=== PATIENT | female | born 1970 | race Caucasian/White ===

== ENCOUNTER 2024-06-27 11:00 | Outpatient (POV) | payer MEDICAID, SELFPAY ==
--- NOTE | 2024-06-27 11:29 | A.OFFVIS_ITS ---
HPI Data of Consult Patient: new to practice Consult date: 06/27/24 Requesting Physician: Laxmi Hooks APRN Primary Care Provider: Tasia Chen APRN Consult Narrative History of present illness: Ms. MAHER is a 54 year old female who presents today as a transfer from our [place] location. Patient has previously been seen by our office in the past and had a intrathecal pain pump implanted on June 01.Patient does haveintrathecal morphine 1 mg/mL with a daily dose of 0.1651 mg/day. Patient denies any specific side effects from this medication however does state today that she is felt like she has had a little bit more swelling over the last 2 weeks in her lower legs. Patient denies any new medications or changes that would correlate to this. Patient has been a client of [facility] there in [place] but does state that she is planning on just seeing our office for future. Patient states that the [place] location is much easier and closer to where she lives. Patient does rate her pain today a 10 out of 10. Patient states the pain is all along her low back and bilateral hips. She is stating it is almost like a nerve damage sensation that has burning that goes into her upper thigh more prominent along the left side than the right. She does state that any type of movement or certain positions really aggravate those symptoms. She states the pain is interfering with her ability perform activities of daily living such as cooking and cleaning. Patient is interested in any help we may be able to provide.patient is also prescribed pregabalin 150 mg 3 times a day from [facility]. Her Jr has been reviewed and is appropriate. CC: Laxmi Hooks APRN [facility] Disclaimer: The information contained in this section may have been updated after the patient was seen, as this information can be updated by other users. Social History Smoking Status: Unknown if ever smoked alcohol intake: never current occupational status: other Travel in the last 8 weeks: None Review of Systems Review of Systems Review of systems:: pertinent systems reviewed and negative unless documented below Review of systems (narrative): Review of Systems: General: No recent weight changes, no fever, no sleep disturbances Respiratory: No cough, no shortness of air, no recurring pulmonary infections Cardiovascular/peripheral vascular: No chest pain, no palpitations, no edema, no shortness of breath Gastrointestinal: No new onset incontinence, normal bowel movements reported Genitourinary: No new onset incontinence Musculoskeletal: Chronic low back pain, bilateral hip pain Psychiatric: [Normal mood/affect] Neurological: [Denies weakness in extremities], [denies balance issues] Meds Home Medications and Allergies Home Medications ?Medication ?Instructions ?Recorded ?Confirmed ?Type baclofen 5 mg tablet 5 mg PO TID #42 tabs 06/27/24 Rx meloxicam 15 mg tablet 15 mg PO DAILY #14 tabs 06/27/24 Rx New Prescriptions to Start Prescriptions: baclofen Laxmi Hooks meloxicam Laxmi Hooks Objective Narrative: Physical Exam: General: Alert and oriented x3, no acute distress, pleasant and cooperative Lungs: Respirations even and unlabored, symmetrical chest expansion Eyes: PERRL Musculoskeletal: Flexion and extension of lumbar [spine] somewhat guarded s econdary to pain, [antalgic gait noted] point tenderness along bilateral SIs with positive bilateral Alejandrina's, Pennie's, Gaenslen's, compression and distraction exam Neurological: Speech clear, no gross sensory deficit Assessment and Plan *Assessment and plan (1) Degenerative disc disease: Status: Acute Category: Medical (2) Chronic back pain: Status: Acute Category: Medical Code(s): M54.9 - Dorsalgia, unspecified; G89.29 - Other chronic pain (3) Bilateral sacroiliitis: Status: Acute Category: Medical Code(s): M46.1 - Sacroiliitis, not elsewhere classified Plan Patient is experiencing worsening pain along the low back and bilateral hips. They did have limited range of motion of the lumbar spine along with point tenderness along bilateral SI joints and a positive bilateral Alejandrina's, Pennie's, Gaenslen's, compression and distraction exam. I did discuss with the patient that I do believe they would benefit from bilateral SI injections. Risk and be nefits were discussed with the patient and they would like to proceed forward with this option. Patient has tried and failed conservative therapy including continued at home stretching exercise for longer than 12 weeks. Patient has had chronic low back and hip pain for longer than 3 months and has had it progressively worsened over the last several weeks. Patient will be scheduled for bilateral SI injections under fluoroscopy. We did do a pump adjustment today of 10%. She tolerated this well with no complications and was discharged neurologically intact. I did discuss with the patient due to her having some swelling in her legs to monitor and see if it did get any worse in order to see if there is correlation between her intrathecal pump medication. We will follow-up with her when she comes for her injections on how the swelling has progressed and if it does seem to be an issue with the pump we will plan on changing her to intrathecal Dilaudid in future. She does state that she is currently on hydrochlorothiazide and has been. We did review over that the swelling may be unrelated to the pump but we will continue to monitor. Patient agrees with this plan of care. I will also order the patient a compounded cream. Patient denies any heart or kidney issues. I will send in a 2-week dose of baclofen 5 mg 3 times daily and meloxicam 15 mg daily. Patient has been instructed to contact the clinic with any concerns before the next appointment. Dr. Winkler has reviewed this note and agrees with this plan of care. This note was dictated using voice recognition software and make contain errors or omissions. All injections are used with Lidocaine or Bupivacaine and Depo Medrol. We will see the patient back in the clinic at the next intrathecal refill. Patient has been instructed to contact the clinic with any concerns before the next appointment. Dr. Winkler has reviewed this note and agrees with this plan of care. This note was dictated using voice recognition software and make contain errors or omissions. -- It Is medically necessary for this patient to continue to have their intrathecal pump refilled at regular intervals. This patient had an intrathecal pain pump implanted after meeting criteria of chronic intractable pain for greater than 3 months and failing conservative treatments. Patient has committed and been compliant to the treatment plan and all planned follow up care. Since implantation of the intrathecal pain pump, the patient has had decreased pain and been more functional. Oral medications have been reduced including intake of oral opioids. Patient continues to do well with intrathecal therapy with decrease in pain symptoms and increase in functional status. Stopping intrathecal medications can lead to life threatening withdrawal, seizures, cardiac arrest, severe pain, and possible . Pumps that are not refilled at regular intervals can be damages and cause and need for replacement. We continually titrate dose and concentration to optimize pain relief and function. We are limited in concentration for certain drugs to safely deliver medications through the pump and stay within the recommendations from the Polyanalgesic Consensus Committee Guidelines. Depending on dose and concentration these pumps may need to be refilled sooner than 3 months as we titrate. A UDS is needed to verify patient's compliance with our office pain contract. This is ordered based off specific treatments related to chronic pain with the potential to abuse certain medications.
[2024-06-27 12:38] VITALS: BP 126/65; PULSE 80; RESP 18; O2SAT 95; BMI 31.8
== END 2024-06-27 23:59 | disposition home or self-care (01) ==
PROVIDERS: PCP Nurse Practitioner Family; Visit Provider Nurse Practitioner Family
DX: M54.9 Dorsalgia, unspecified (principal); G89.29 Other chronic pain; M46.1 Sacroiliitis, not elsewhere classified; Z73.89 Other problems related to life management difficulty
CPT/HCPCS: 62368; 99202; G0463

== ENCOUNTER 2024-07-09 13:03 | Outpatient (POV) | payer MEDICAID, SELFPAY ==
--- NOTE | 2024-07-09 13:52 | EXP.PAIN.SOA ---
[facility] Disclaimer: The information contained in this section may have been updated after the patient was seen, as this information can be updated by other users. Medical History (Updated 07/09/24 @ 13:54 by Laxmi Hooks APRN) GERD (gastroesophageal reflux disease) Hypothyroidism Depression HTN (hypertension) DDD (degenerative disc disease), lumbar DDD (degenerative disc disease), cervical Lumbar spondylosis Surgical History (Updated 06/27/24 @ 12:54 by Nina Young RN) H/O neck surgery H/O hernia repair Family History (Updated 06/27/24 @ 12:47 by Nina Young RN) Other Unknown family medical history Social History (Updated 06/27/24 @ 12:58 by Nina Young RN) Smoking Status: Unknown if ever smoked alcohol intake: never current occupational status: unemployed Travel in the last 8 weeks: None PM Subjective & Objective Subjective Subjective:: Patient is a pleasant 54-year-old female who presents today for follow-up. Today she rates her pain a 10 out of 10. At her last visit we did do a increase of her pump that does have morphine 1 mg/mL. She states she is not really sure whether or not if that is the back of the pump medication or not but she has been having more swelling into the right extremity down to her foot with increased pain. Patient was also ordered a compounded cream along with baclofen 5 mg 3 times daily and meloxicam 15 mg daily. Patient states that she did go to the hospital there in [place] this morning and they did do an ultrasound and ruled out any DVT. Patient does describe it as a burning tingling sensation. Her Jr has been reviewed and is appropriate. Review of Systems: General: No recent weight changes, no fever, no sleep disturbances Respiratory: No cough, no shortness of air, no recurring pulmonary infections Cardiovascular/peripheral vascular: No chest pain, no palpitations, no edema, no shortness of breath Gastrointestinal: No new onset incontinence, normal bowel movements reported Genitourinary: No new onset incontinence Musculoskeletal: Right leg swelling, right foot pain Psychiatric: [Normal mood/affect] Neurological: [Denies weakness in extremities], [denies balance issues] Pain at rest (0-10 scale): 10 Objective Objective:: Physical Exam: General: Alert and oriented x3, no acute distress, pleasant and cooperative Lungs: Respirations even and unlabored, symmetrical chest expansion Eyes: PERRL Musculoskeletal: Flexion and extension of right foot somewhat guarded secondary to pain, [antalgic gait noted] Neurological: Speech clear, no gross sensory deficit Skin: Right foot does have significant swelling and redness, hot to touch and 1+ pitting edema noted on her upper leg Has patient had previous pain injection?: No Conservative treatment options previously tried: Home exercise plan Length of treatment: Longer than 12 weeks Meds Home Medications and Allergies Home Medications ?Medication ?Instructions ?Recorded ?Confirmed ?Type albuterol sulfate 90 mcg/actuation 1 inh inhalation DIRECTED 06/27/24 06/27/24 History aerosol inhaler Breathing Problems atenolol 25 mg tablet 25 mg PO DIRECTED BLOOD PRESSURE 06/27/24 06/27/24 History baclofen 5 mg tablet 5 mg PO TID #42 tabs 06/27/24 Rx fluoxetine 20 mg capsule 20 mg PO DAILY MOOD 06/27/24 06/27/24 History hydrochlorothiazide 12.5 mg capsule 12.5 mg PO DAILY Fluid 06/27/24 06/27/24 History levothyroxine 25 mcg tablet 25 mcg PO DAILY THYROID 06/27/24 06/27/24 History meloxicam 15 mg tablet 15 mg PO DAILY #14 tabs 06/27/24 Rx mirtazapine 30 mg tablet 30 mg PO DAILY 06/27/24 06/27/24 History omeprazole 20 mg capsule,delayed 20 mg PO DAILY GERD 06/27/24 06/27/24 History release pregabalin 150 mg capsule 150 mg PO Q8H Pain 06/27/24 06/27/24 History New Prescriptions to Start Prescriptions: Allergies Allergy/AdvReac Type Severity Reaction Status Date / Time No Known Allergies Allergy Verified 06/27/24 13:15 Assessment and Plan *Assessment and plan (1) Right foot pain: Status: Acute Category: Medical Code(s): M79.671 - Pain in right foot (2) Swelling of right foot: Status: Acute Category: Medical Code(s): M79.89 - Other specified soft tissue disorders Plan Patient is experiencing significant swelling in the right lower extremity with erythema, pitting edema hot to touch right foot in comparison to the left. I did discuss with the patient that I do believe some of her symptoms do have a possible diagnosis of gout, cellulitis or osteomyelitis. Out of precaution we will go ahead and proceed forward with changing her pump medication to Dilaudid 1 mg/mL with a starting dose of 0.1 mg/day. I will also order CBC with differential, CMP and uric acid levels as well as ordering an x-ray of her right foot to rule out possible diagnosis mentioned prior. Patient agrees with this plan of care. We will have the patient back as soon as possible to change out her intrathecal pump medication. I did offer to decrease her intrathecal pump today however the patient declined because her pain overall in her back is much more manageable at the current dosage. We will see the patient back in the clinic at the next intrathecal refill. Patient has been instructed to contact the clinic with any concerns before the next appointment. Dr. Winkler has reviewed this note and agrees with this plan of care. This note was dictated using voice recognition software and make contain errors or omissions. -- It Is medically necessary for this patient to continue to have their intrathecal pump refilled at regular intervals. This patient had an intrathecal pain pump implanted after meeting criteria of chronic intractable pain for greater than 3 months and failing conservative treatments. Patient has committed and been compliant to the treatment plan and all planned follow up care. Since implantation of the intrathecal pain pump, the patient has had decreased pain and been more functional. Oral medications have been reduced including intake of oral opioids. Patient continues to do well with intrathecal therapy with decrease in pain symptoms and increase in functional status. Stopping intrathecal medications can lead to life threatening withdrawal, seizures, cardiac arrest, severe pain, and possible . Pumps that are not refilled at regular intervals can be damages and cause and need for replacement. We continually titrate dose and concentration to optimize pain relief and function. We are limited in concentration for certain drugs to safely deliver medications through the pump and stay within the recommendations from the Polyanalgesic Consensus Committee Guidelines. Depending on dose and concentration these pumps may need to be refilled sooner than 3 months as we titrate. A UDS is needed to verify patient's compliance with our office pain contract. This is ordered based off specific treatments related to chronic pain with the potential to abuse certain medications.
--- NOTE | 2024-07-09 14:01 | XR_ITS ---
FINAL REPORT CLINICAL HISTORY: r/o osteomyelitis, right foot swelling/erythema, 3 WEEKS SWELLING COMPARISON: None FINDINGS: Three views of the right foot show no evidence of acute displaced fracture or dislocation of the visualized bony architecture. There is no periosteal reaction or evidence of bony destruction. The joint spaces appear normal. Mild dorsal soft tissue swelling is noted without gas or radiopaque foreign body. IMPRESSION: No acute findings. Reviewed, Interpreted and Dictated by Marleni Diaz MD Transcribed by Bertha Whiting Authenticated and [facility]
[2024-07-09 14:07] VITALS: BP 110/67; PULSE 85; RESP 14; O2SAT 95; BMI 35.1
[2024-07-09 15:02] LABS: Basophils # 0.1 K/mm3 (0-0.2); Basophils % 0.9 % (0.1-2.0); Eosinophils # 0.2 K/mm3 (0.0-0.4); Eosinophils % 2.7 % (0.1-12.0); Hematocrit 39.4 % (37.0-47.0); Hemoglobin 13.1 g/dL (12.2-16.2); Lymphocytes # 2.1 K/mm3 (0.7-4.5); Lymphocytes % 25.4 % (10-50); Mean Corpuscular HGB Conc 33.2 g/dL (31.8-35.4); Mean Corpuscular Hemoglobin 30.7 pg (27.0-31.2); Mean Corpuscular Volume 92.3 fl (81-99); Mean Platelet Volume 12.6 fl (7.4-10.4); Monocytes # 0.6 K/mm3 (0.1-1.0); Monocytes % 7.4 % (1.7-9.3); Neutrophils # 5.2 K/mm3 (1.8-7.8); Neutrophils % 63.2 % (37.0-80.0); Platelet Count 220 K/mm3 (142-424); Red Blood Count 4.27 M/mm3 (4.20-5.40); Red Cell Distribution Width 12.6 % (11.5-17.5); White Blood Count 8.2 K/mm3 (4.8-10.8)
[2024-07-09 15:22] LABS: Alanine Aminotransferase 27 U/L (12-78); Albumin Level 3.9 g/dl (3.5-5.0); Alkaline Phosphatase 88 U/L (38-126); Anion Gap 6.8 mEq/L (5-15); Aspartate Amino Transferase 37 U/L (14-36); Bilirubin,Total 0.9 mg/dl (0.2-1.3); Blood Urea Nitrogen 8 mg/dl (7-17); Calcium 9.2 mg/dl (8.4-10.2); Carbon Dioxide 30 mmol/L (22.0-30.0); Chloride 106 mmol/L (98-107); Creatinine Clearance Estimated 112 mL/min (50-200); Estimated Glomerular Filt Rate 75 ml/min (>60); GFR (African American) 91 ML/MIN (>60); Glucose 101 mg/dl (74-100); Potassium 3.8 mmoL/L (3.5-5.1); Sodium 139 mmol/L (136-145); Total Protein,Serum 5.9 g/dl (6.3-8.2); Uric Acid 7.1 mg/dl (2.5-6.2)
== END 2024-07-09 23:59 | disposition home or self-care (01) ==
PROVIDERS: PCP Nurse Practitioner Family; Visit Provider Nurse Practitioner Family
DX: M79.671 Pain in right foot (principal); M79.89 Other specified soft tissue disorders
CPT/HCPCS: 36415; 73630; 80053; 84550; 85025; 99212; G0463

== ENCOUNTER 2024-07-20 10:21 | Day surgery (SDC) | payer MEDICAID, SELFPAY ==
--- NOTE | 2024-07-20 10:26 | EXP.PAIN.PRO ---
Procedure Date: 07/20/24 Time: 11:28 Anesthesiologist:: Laxmi Hooks APRN Complications:: None Pre-procedure Diagnosis:: Degenerative disc disease of lumbar spine with lumbar radiculopathy symptoms, sacroiliitis Post-procedure Diagnosis:: Same Indications for Procedure:: Patient is a pleasant 54-year-old female who presents today for intrathecal refill and reprogram. Today she rates her pain a 7 out of 10. Patient does state from her last visit that the day she left out of here she felt really terrible by the time she got home with the flu or flulike symptoms and was in bed all day. Patient does state that she did get her message regarding that her elevated uric acid levels and thinking that her foot was related to gout however she did still question that. She does state that she has a history of gout and does have preventative gout medication. Patient is currently managed with morphine 1 mg/mL with a daily dose of 0.1816 mg/day and is getting her pump changed to Dilaudid 1 mg/mL with a starting dose of 0.1 mg/day. Patient does still want to proceed forward with this plan of care. Patient does also make mention today that she is having a lot more numbness into her upper hands bilaterally. Patient does have a longstanding history of multiple cervical surgeries and chronic pain in this area. Patient states if there are any options we may be able to do to give improvement for some of those symptoms. Patient is prescribed pregabalin from an outside provider and compounded cream from our office. Her Jr has been reviewed and is appropriate. Physical Exam: General: Alert and oriented x3, no acute distress, pleasant and cooperative Lungs: Respirations even and unlabored, symmetrical chest expansion Eyes: PERRL Musculoskeletal: Flexion and extension of lumbar [spine] somewhat guarded secondary to pain, [antalgic gait noted] Neurological: Speech clear, no gross sensory deficit Procedure Details:: Informed consent was obtained and the risk and benefits of the procedure were explained to the patient. The patient had noninvasive monitoring placed including noninvasive blood pressure cuff and pulse oximeter. Patient's pump was interrogated. The area over the pump was cleansed with chlorhexidine as a cleansing solution. In sterile fashion the pump was accessed with a 22-gauge needle. Approximately 9.2 mls of the pump solution was removed and discarded appropriately. The pump was then refilled with 20 mL's of Dilaudid 1 mg/mL. The needle was withdrawn and a bandage was placed over the puncture site. The infusion rate was reprogrammed and restarted at Dilaudid 0.1 mg/day. The patient tolerated well with no complication. Plan and Disposition:: Patient tolerated the procedure well with no complications and was discharged neurologically intact. Patient was counseled that she will have a bridge bolus as the medication of the previous morphine makes its way through the catheter and that during that time she would not be able to use her bridge bolus. Patient was counseled she does have a 46-hour and 39-minute bridge bolus to get to the new dosage. I did discuss with the patient regarding her bilateral upper extremity numbness that it would be more beneficial to try a cervical epidural however that we can make adjustments on her pump to even change it to flex dosing to see if she gets better coverage for her overall neck symptoms. We will follow-up with this at future visits. Patient is scheduled to be here on Tuesday for injections. Patient will return to clinic on or before their next intrathecal refill date. We will see the patient back in the clinic at the next intrathecal refill. Patient has been instructed to contact the clinic with any concerns before the next appointment. Dr. Winkler has reviewed this note and agrees with this plan of care. This note was dictated using voice recognition software and make contain errors or omissions. -- It Is medically necessary for this patient to continue to have their intrathecal pump refilled at regular intervals. This patient had an intrathecal pain pump implanted after meeting criteria of chronic intractable pain for greater than 3 months and failing conservative treatments. Patient has committed and been compliant to the treatment plan and all planned follow up care. Since implantation of the intrathecal pain pump, the patient has had decreased pain and been more functional. Oral medications have been reduced including intake of oral opioids. Patient continues to do well with intrathecal therapy with decrease in pain symptoms and increase in functional status. Stopping intrathecal medications can lead to life threatening withdrawal, seizures, cardiac arrest, severe pain, and possible . Pumps that are not refilled at regular intervals can be damages and cause and need for replacement. We continually titrate dose and concentration to optimize pain relief and function. We are limited in concentration for certain drugs to safely deliver medications through the pump and stay within the recommendations from the Polyanalgesic Consensus Committee Guidelines. Depending on dose and concentration these pumps may need to be refilled sooner than 3 months as we titrate. A UDS is needed to verify patient's compliance with our office pain contract. This is ordered based off specific treatments related to chronic pain with the potential to abuse certain medications.
[2024-07-20 10:34] VITALS: BP 117/94; PULSE 85; RESP 16; TEMP 36.4; O2SAT 97; BMI 34.7
[2024-07-20 11:21] VITALS: BP 126/66; PULSE 80; RESP 18; O2SAT 96
[2024-07-20 11:22] VITALS: BP 126/66; PULSE 81; RESP 18; O2SAT 96
[2024-07-20 11:53] VITALS: BP 103/68; PULSE 80; RESP 16; O2SAT 95
== END 2024-07-20 11:53 | disposition home or self-care (01) ==
PROVIDERS: PCP Nurse Practitioner Family; Visit Provider Nurse Practitioner Family
DX: M51.16 Intervertebral disc disorders with radiculopathy, lumbar region (principal); M46.1 Sacroiliitis, not elsewhere classified
CPT/HCPCS: 62370

== ENCOUNTER 2024-07-24 10:38 | Day surgery (SDC) | payer MEDICAID, SELFPAY ==
[2024-07-24 10:50] VITALS: BP 126/82; PULSE 75; RESP 16; TEMP 36.2; O2SAT 97; BMI 34.7
[2024-07-24 10:55] VITALS: BP 124/80; PULSE 87; RESP 18; O2SAT 92
[2024-07-24] MEDS: BUPIVACAINE 0.25% 10ML INJ 25 MG IJ (10:55)
[2024-07-24] MEDS: LIDOCAINE 1% 5ML PF VIAL 5 ML (10:55)
[2024-07-24] MEDS: methylPREDNISolone ACETATE 80MG/ML VIAL 80 MG (10:55)
[2024-07-24 11:09] VITALS: BP 109/70; PULSE 84; RESP 16; O2SAT 96
--- NOTE | 2024-07-24 11:37 | P.PCN_ITS ---
Procedure Date: 07/24/24 Time: 11:00 Anesthesiologist:: Dmitri Garcia CRNA Complications:: None Pre-procedure Diagnosis:: Bilateral sacroiliitis Post-procedure Diagnosis:: Same Indications for Procedure:: Patient is a pleasant 54-year-old female who comes our clinic for bilateral sacroiliac joint injections cortisone local anesthetic. Patient describes low lumbar back pain off midline bilaterally. Bilateral posterior hip pain. Difficulty transitioning from sitting to standing. She rates her pain 8/10. Procedure Details:: Procedure: Bilateral sacroiliac joint injections under fluoroscopy Informed consent was obtained and the risks and benefits of the procedure were explained to the patient.~ The patient was taken to the procedure room and noninvasive monitors were placed including a noninvasive blood pressure cuff and pulse oximeter.~ The patient was placed prone on the procedure table. Both hips were cleansed using Betadine as a cleansing solution. C-arm fluoroscopy was used to view the right sacroiliac joint.~ The skin and subcutaneous tissues were anesthetized using lidocaine 1.5% and a 25-gauge needle.~ After this, a 22-gauge spinal needle was inserted under fluoroscopic guidance into the inferior aspect of the right sacroiliac joint.~ Omnipaque dye was injected and good spread was seen throughout the joint.~ After this, approximately 5 mL of bupivacaine, 0.25% and Depo-Medrol, 40 mg was incrementally injected into the right sacroiliac joint. We then moved to the left sacroiliac joint.~ The skin and subcutaneous tissues were anesthetized using lidocaine 1.5% and a 25-gauge needle.~ After this, a 22- gauge spinal needle was inserted under fluoroscopic guidance into the inferior aspect of the left sacroiliac joint.~ Omnipaque dye was injected and good spread was seen throughout the joint. After this, approximately 5 mL of bupivacaine, 0.25% and Depo-Medrol, 40 mg was incrementally injected into the left sacroiliac joint.~ The patient tolerated the procedure well with no complications. The patient was observed in the Pain Clinic and then was discharged home neurologically intact. Plan and Disposition:: Patient was discharged without incident.
--- NOTE | 2024-07-24 11:40 | EXP.PAIN.PRO ---
Procedure Date: 07/24/24 Time: 11:15 Anesthesiologist:: Dmitri Garcia CRNA Complications:: None Pre-procedure Diagnosis:: Degenerative disc lumbar spine multilevels for lumbar radiculopathy. Bilateral sacroiliitis. Post-procedure Diagnosis:: Same. Indications for Procedure:: Patient is a 54-year-old female comes our clinic today for intrathecal pain pump interrogation and reprogram. Patient currently being managed with hydromorphone 1 mg/mL at a rate of 0.1 mg/day. Patient intrathecal pain medication was changed 3 days ago from morphine to hydromorphone. I will give her a 10% increase today. Procedure Details:: Details of procedure explained to the patient. Patient's pump was interrogated. Pump rate was increased by 10%. Her new rate is 0.1102 mg/day. Patient tolerated procedure without difficulty there are no complications. Plan and Disposition:: Patient was discharged without incident.
== END 2024-07-24 11:09 | disposition home or self-care (01) ==
PROVIDERS: PCP Nurse Practitioner Family; Visit Provider Nurse Anesthetist, Certified Registered
DX: M46.1 Sacroiliitis, not elsewhere classified (principal); M51.16 Intervertebral disc disorders with radiculopathy, lumbar region
CPT/HCPCS: 27096; 62368; G0260; J1010

== ENCOUNTER 2024-08-06 13:49 | Outpatient (POV) | payer MEDICAID, SELFPAY ==
[2024-08-06 14:43] VITALS: BP 115/68; PULSE 84; RESP 18; O2SAT 95; BMI 35.3
--- NOTE | 2024-08-06 15:37 | EXP.PAIN.PRO ---
Procedure Date: 08/06/24 Time: 15:01 Anesthesiologist:: Laxmi Hooks APRN Complications:: None Pre-procedure Diagnosis:: Degenerative disc disease of lumbar spine, lumbar facet arthropathy, chronic back pain, bilateral sacroiliitis Post-procedure Diagnosis:: Same Indications for Procedure:: Patient is a pleasant 54-year-old female who presents today for intrathecal adjustment and worsening pain. Patient did also have bilateral SI injections on 24 July. She states that she did not notice great relief with these. Patient states she still continues to have worsening pain with certain movements. She does state it is interfering with her ability to perform activities of daily living such as cooking and cleaning. Patient does also state that the change of her pump medication to Dilaudid has not seem to make a huge difference as of right now. Patient was restarted at a starting dose with Dilaudid 1 mg/mL with a daily dose of 0.1 mg/day. She was just recently increased on the to 0.1102 mg/day. She denies any side effects to this medication. Patient is prescribed pregabalin from an outside provider and compounded cream from our office. Her Jr has been reviewed and is appropriate. Physical Exam: General: Alert and oriented x3, no acute distress, pleasant and cooperative Lungs: Respirations even and unlabored, symmetrical chest expansion Eyes: PERRL Musculoskeletal: Flexion and extension of lumbar [spine] somewhat guarded secondary to pain, [antalgic gait noted] positive Kemps test Neurological: Speech clear, no gross sensory deficit Procedure Details:: Informed consent was obtained and the risk and benefits of the procedure were explained to the patient. Patient did have noninvasive monitoring was placed including noninvasive blood pressure cuff and pulse oximeter. Patient's pump was interrogated and was reprogrammed to Dilaudid 0.1266 mg/day. The patient tolerated the procedure well with no complications. Plan and Disposition:: Patient tolerated the procedure well with no complications. Patient is experiencing significant pain in her low back that is worse with bending, twisting or lifting. Patient did have limited range of motion of her lumbar spine with a positive Kemps test during today's visit. I did discuss with the patient that I do believe she would benefit from a lumbar medial branch block. Risk and benefits were discussed with the patient and she would like to proceed forward with this plan of care. Patient has tried and failed conservative therapy including oral medications, heat and ice, topicals, at home stretching exercise for longer than 12 weeks. Patient has been experiencing chronic low back pain for years. Patient was counseled that if she does get significant relief with her first lumbar medial branch block that we will plan on repeating it with the plan to progress forward to a lumbar RFA at a later date. Patient agrees with this plan of care. Patient will be scheduled for her first diagnostic lumbar medial branch block bilaterally L4-L5 and L5-S1 under fluoroscopy. Patient has been instructed to contact the clinic with any concerns before the next appointment. Dr. Winkler has reviewed this note and agrees with this plan of care. This note was dictated using voice recognition software and make contain errors or omissions. All injections are used with Lidocaine, Bupivacaine and Depo Medrol. Occasionally urine drug screen is needed to verify patient's compliance with our office pain contract. This is ordered based off specific treatments related to chronic pain with the potential to abuse certain medications.
== END 2024-08-06 23:59 | disposition home or self-care (01) ==
PROVIDERS: PCP Nurse Practitioner Family; Visit Provider Nurse Practitioner Family
DX: M51.362 Other intervertebral disc degeneration, lumbar region with discogenic back pain and lower extremity pain (principal); M47.816 Spondylosis without myelopathy or radiculopathy, lumbar region; M46.1 Sacroiliitis, not elsewhere classified; M54.9 Dorsalgia, unspecified; G89.29 Other chronic pain
CPT/HCPCS: 62368; 99212; 99213; G0463

== ENCOUNTER 2024-08-17 13:29 | Outpatient (POV) | payer MEDICAID, SELFPAY ==
--- OUTSIDE RECORDS SUMMARY | 2024-08-17 13:32 | XMS_ITS | Data Portability ---
Author Organization [place] - [facility] Address [address] [place] [id number] Assessment No assessment recorded. Plan of Treatment Reminders Order Date Submit Date Provider Last Modified By Organization Details Last Modified Time Details Appointments None record ed. Lab None record ed. Referral None record ed. Procedures None record ed. Surgeries None record ed. Imaging None record ed. Medication Orders None record ed. Patient TargetsNo targets recorded. Patient InstructionsNo instructions recorded. Reason for Referral None Reported. Medical Equipment None Reported. Allergies No known drug allergies Medications Name Sig Start Date Stop Date Status Note LastModified by Organization Details LastModified Time cyclobenzapr ine 10 mg tablet ONE (1) (ONE) TABLET THREE (3) TIMES DAILY, NEEDED FOR MUSCLE SPASMS active Not Available Not Available No t Available amoxicillin 500 mg capsule TAKE 1 CAPSULE BY MOUTH TWICE DAILY active Not Available Not Available No t Available nystatin 100,000 unit/mL oral suspension TAKE FIVE (5) MILLILITER BY MOUTH FOUR TIMES DAILY, SWISH, SWALLOW active Not Available Not Available No t Available gabapentin 600 mg tablet TAKE 1 TABLET BY MOUTH THREE (3) TIMES DAILY active Not Available Not Available No t Available doxycycline hyclate 100 mg capsule TAKE 1 CAPSULE BY MOUTH TWICE DAILY active Not Available Not Available No t Available prednisone 20 mg tablet TAKE 1 TABLET BY MOUTH TWICE DAILY active Not Available Not Available No t Available atenolol 25 mg tablet TAKE 1 TABLET BY MOUTH EVERY DAY active Not Available Not Available No t Available levothyroxin e 25 mcg tablet TAKE 1 TABLET BY MOUTH EVERY DAY active Not Available Not Available No t Available gabapentin 800 mg tablet TAKE ONE (1) TABLET BY MOUTH THREE (3) TIMES DAILY active Not Available Not Available Not Available omeprazole 20 mg capsule,mary yed release TAKE ONE (1) CAPSULE DAILY NEEDS APPT active Not Available Not Available No t Available diclofenac sodium 75 mg tablet,delay ed release TAKE 1 TABLET BY MOUTH TWICE DAILY NEEDED active Not Available Not Available No t Available lisinopril 5 mg tablet TAKE 1 TABLET BY MOUTH EVERY DAY active Not Available Not Available No t Available methylpredni solone 4 mg tablets in a dose pack TAKE DIRECTED ON PACKAGE active Not Available Not Available No t Available fluoxetine 20 mg capsule TAKE 1 TABLET BY MOUTH EVERY DAY active Not Available Not Available No t Available medroxyproge sterone 150 mg/mL intramuscula r suspension INJECT ONE (1) ML INTRAMUSCUL BLADE EVERY 12 WEEKS active Not Available Not Available No t Available doxycycline hyclate 100 mg tablet TAKE 1 TABLET BY MOUTH TWICE DAILY active Not Available Not Available No t Available Ventolin HFA 90 mcg/actuatio n aerosol inhaler INHALE ONE (1) PUFF FOUR (4) TIMES DAILY active Not Available Not Available Not Available pregabalin 150 mg capsule TAKE ONE (1) CAPSULE BY MOUTH THREE (3) TIMES DAILY active Not Available Not Available Not Available hydrochlorot hiazide 12.5 mg tablet TAKE 1 TABLET BY MOUTH EVERY DAY active Not Available Not Available No t Available Vitals None Recorded Social History None recorded. Functional Status None recorded. Mental Status None recorded. Family History Nothing Reported. Medical History No medical history recorded. Gynecological HistoryNo gynecological history recorded. Obstetrics History GPAL:G 0 P 0 0 0 0 Past Encounters Encounter ID Performer Location Encounter Start Date Encounter Closed Date Diagnosis/Indication Diagnosis SNOMED-CT Code Diagnosis ICD10 Code Diagnosis Note [id number] TOO SMITH DO [facility] [address] [facility] [place] [id number] 05/18/2023 12:45:07 05/24/2023 08:20:50 Follow-up orthopedic assessment [id number] Z47.89 Health Concerns Section Related Observation LastModified by Organization Detai ls LastModified Time None Recorded Concern Status LastModified by Organization Details LastModified Time None Recorded Advance Directives Directive None Recorded Payers None recorded. OBGyn Episode No OBEpisode recorded.
[2024-08-17 13:50] VITALS: BP 102/69; PULSE 83; RESP 16; O2SAT 100; BMI 34.7
--- NOTE | 2024-08-17 15:15 | EXP.PAIN.PRO ---
Procedure Date: 08/17/24 Time: 14:32 Anesthesiologist:: Laxmi Hooks APRN Complications:: None Pre-procedure Diagnosis:: Degenerative disc disease of lumbar spine with lumbar facet arthropathy Post-procedure Diagnosis:: Same Indications for Procedure:: Patient is a pleasant 54-year-old female who presents today for intrathecal adjustment and reprogram. Today she rates her pain a 10 out of 10. She denies any new trauma or injury. She does state that she is still having pain all across to her back and is scheduled for her injections at our office on the of this month for the lumbar medial branch block bilaterally. Patient does state overall her pump is still working well however feels like it does definitely still need additional adjustment. Patient denied any side effects from the recent increase. Patient is currently managed with Dilaudid 1 mg/mL with a daily dose of 0.1266 mg/day. Patient does make mention today that even before she had her pump she was having trouble initiating urination and feels like it is just continued. Patient states this has been going on for some time. She states that she oftentimes has to sit for longer periods of time and leaning forward to get started with urination. Patient denies seeing a urologist in the past. Her Jr has been reviewed and is appropriate. Physical Exam: General: Alert and oriented x3, no acute distress, pleasant and cooperative Lungs: Respirations even and unlabored, symmetrical chest expansion Eyes: PERRL Musculoskeletal: Flexion and extension of lumbar [spine] somewhat guarded secondary to pain, [antalgic gait noted] Neurological: Speech clear, no gross sensory deficit Procedure Details:: Informed consent was obtained and the risk and benefits of the procedure were explained to the patient. Patient did have noninvasive monitoring was placed including noninvasive blood pressure cuff and pulse oximeter. Patient's pump was interrogated and was reprogrammed to Dilaudid 0.1518 mg/day. The patient tolerated the procedure well with no complications. Plan and Disposition:: Patient tolerated the procedure well with no complications and was discharged neurologically intact. Patient will return to clinic next week for possible additional adjustment and reprogram. We will also send her for referral to Dr. Salmeron's office here with urology related to her bladder issues. We will see the patient back in the clinic at the next intrathecal refill. Patient has been instructed to contact the clinic with any concerns before the next appointment. Dr. Winkler has reviewed this note and agrees with this plan of care. This note was dictated using voice recognition software and make contain errors or omissions. -- It Is medically necessary for this patient to continue to have their intrathecal pump refilled at regular intervals. This patient had an intrathecal pain pump implanted after meeting criteria of chronic intractable pain for greater than 3 months and failing conservative treatments. Patient has committed and been compliant to the treatment plan and all planned follow up care. Since implantation of the intrathecal pain pump, the patient has had decreased pain and been more functional. Oral medications have been reduced including intake of oral opioids. Patient continues to do well with intrathecal therapy with decrease in pain symptoms and increase in functional status. Stopping intrathecal medications can lead to life threatening withdrawal, seizures, cardiac arrest, severe pain, and possible . Pumps that are not refilled at regular intervals can be damages and cause and need for replacement. We continually titrate dose and concentration to optimize pain relief and function. We are limited in concentration for certain drugs to safely deliver medications through the pump and stay within the recommendations from the Polyanalges[employer] Consensus Committee Guidelines. Depending on dose and concentration these pumps may need to be refilled sooner than 3 months as we titrate. A UDS is needed to verify patient's compliance with our office pain contract. This is ordered based off specific treatments related to chronic pain with the potential to abuse certain medications.
== END 2024-08-17 23:59 | disposition home or self-care (01) ==
PROVIDERS: PCP Nurse Practitioner Family; Visit Provider Nurse Practitioner Family
DX: M51.369 Other intervertebral disc degeneration, lumbar region without mention of lumbar back pain or lower extremity pain (principal); M47.816 Spondylosis without myelopathy or radiculopathy, lumbar region
CPT/HCPCS: 62368; 99212; G0463

== ENCOUNTER 2024-09-04 14:06 | Day surgery (SDC) | payer MEDICAID, SELFPAY ==
[2024-09-04 14:20] VITALS: BP 110/74; PULSE 86; RESP 16; TEMP 36.7; O2SAT 96; BMI 35.4
[2024-09-04] MEDS: DEXAMETHASONE 10MG/ML 1ML VIAL 10 MG (14:29)
[2024-09-04] MEDS: BUPIVACAINE 0.25% 10ML INJ 25 MG IJ (14:29)
[2024-09-04] MEDS: LIDOCAINE 1% 5ML PF VIAL 5 ML (14:29)
[2024-09-04 14:30] VITALS: BP 146/81; PULSE 84; RESP 18; O2SAT 96
[2024-09-04 14:32] VITALS: BP 146/81; PULSE 84; RESP 18; O2SAT 96
--- NOTE | 2024-09-04 14:36 | EXP.PAIN.PRO ---
Procedure Date: 09/04/24 Time: 14:30 Anesthesiologist:: Dmitri Garcia CRNA Complications:: None Pre-procedure Diagnosis:: Degenerative disc lumbar spine multilevels. Lumbar radiculopathy. Lumbar postlaminectomy syndrome. Lumbar spondylosis. Multilevel lumbar facet arthropathy. Post-procedure Diagnosis:: Same. Indications for Procedure:: Patient is a very pleasant 54-year-old female who comes our clinic today for ROUND ONE of lumbar medial branch blocks/facet injections at the bilateral L4-5, L5-S1 level. Patient describes low lumbar back pain as constant, dull, sharp, stabbing. She reports difficulty with ambulation due to persistent low back pain. Since May 2024 she has been managed with intrathecal pain pump. She reports minimal relief since the pump was installed. I discussed in detail with the patient regarding the possibility of adding bupivacaine to the pump. She will mention this to the provider at her next refill. She rates her pain 8/10. Procedure Details:: Informed consent was obtained and the risk and benefits of the procedure was explained to the patient. Patient was taken to the procedure room where noninvasive monitors were placed, including noninvasive blood pressure cuff as well as pulse oximeter. The area over the lumbar spine was cleansed using chlorhexidine as a cleansing solution. I anesthetized the skin and subcutaneous tissues with 1% Lidocaine. I placed 22-gauge spinal needles into the facet joint/ medial branches of [L3-L4, L4-L5, and L5-S1] bilaterally. Needle placement was confirmed with fluoroscopy. After confirmation of needle placement, each site was injected with 1 mL of 1% lidocaine and 0.25 % Marcaine and 10 mg of Depo-Medrol. A total of 80 mg of depo medrol was used for bilateral medial branch blocks of [L3-L4, L4-L5, and L5-S1] bilaterally. Patient tolerated the procedure without difficulty. There were no complications. Plan and Disposition:: Patient was discharged without incident.
[2024-09-04 14:38] VITALS: BP 134/67; PULSE 88; RESP 16; O2SAT 98
== END 2024-09-04 14:38 | disposition home or self-care (01) ==
PROVIDERS: PCP Nurse Practitioner Family; Visit Provider Nurse Anesthetist, Certified Registered
DX: M47.816 Spondylosis without myelopathy or radiculopathy, lumbar region (principal); M51.369 Other intervertebral disc degeneration, lumbar region without mention of lumbar back pain or lower extremity pain; M96.1 Postlaminectomy syndrome, not elsewhere classified
CPT/HCPCS: 64493; 64494; J1100

== ENCOUNTER 2024-09-17 14:35 | Outpatient (POV) | payer MEDICAID, SELFPAY ==
--- OUTSIDE RECORDS SUMMARY | 2024-09-17 14:38 | XMS_ITS | Data Portability ---
Author Organization [place] - [facility] Address [address] [place] [phone] Assessment No assessment recorded. Plan of Treatment [...] SNOMED-CT Code Diagnosis ICD10 Code Diagnosis Note [id number] TOO SMITH DO [facility] [place] [address] 05/18/2023 12:45:07 05/24/2023 08:20:50 Follow-up orthopedic assessment [id number] Z47.89 Health Concerns Section Related Observation LastModified by Organization Detai ls LastModified Time None Recorded Concern Status LastModified by Organization Details LastModified Time None Recorded Advance Directives Directive None Recorded Payers Insurance Date Sequence Insurance Name Policy Number Policy Rodriguez Covered Member ID Rodriguez Member ID Guarantor Name 05/18/2023 1 [facility] Nasrin May [id number] Nasrin May 06/15/2023 1 [facility] (MEDICAID REPLACEMENT - O) Nasrin May [id number] Nasrin May 05/18/2023 1 [facility] Nasrin May [id number] Nasrin May 10/01/2021 1 [facility] [id number] Nasrin May [id number] Nasrin May 05/18/2023 1 [employer] [id number] Nasrin May [id number] Nasrin May OBGyn Episode No OBEpisode recorded.
--- NOTE | 2024-09-17 15:20 | A.OFFVIS_ITS ---
[facility] Disclaimer: The information contained in this section may have been updated after the patient was seen, as this information can be updated by other users. Medical History (Updated 09/17/24 @ 15:22 by Laxmi Hooks APRN) GERD (gastroesophageal reflux disease) Hypothyroidism Depression HTN (hypertension) DDD (degenerative disc disease), lumbar DDD (degenerative disc disease), cervical Lumbar spondylosis Surgical History H/O neck surgery H/O hernia repair Family History Other Unknown family medical history Social History Smoking Status: Unknown if ever smoked alcohol intake: never current occupational status: other Travel in the last 8 weeks?: None PM Subjective & Objective Subjective Subjective:: Patient is a pleasant 54-year-old female who presents today for follow-up of her first diagnostic lumbar medial branch block bilaterally L4-L5 and L5-S1 on 09/04/2024. Today she rates her pain a 7 out of 10. Patient does deny any new injuries or falls. She does however state that she had 100% relief following these injections for 11 days where her pain was a 0 out of 10 and before it returned. Patient does state today it is back to her baseline and that she is having increased pain all across her low back. Patient denies any radiating symptoms into her legs. Patient does state that this has been the best injection she has had and definitely wants to proceed forward with the next option. Patient is currently managed with Dilaudid 1 mg/mL with a daily dose of 0.1518 mg/day. She denies any side effects. Patient is still having swelling into her right lower leg and states that she is kassidy follow-up with primary care regarding this. Her Jr has been reviewed and is appropriate. Review of Systems: General: No recent weight changes, no fever, no sleep disturbances Respiratory: No cough, no shortness of air, no recurring pulmonary infections Cardiovascular/peripheral vascular: No chest pain, no palpitations, no edema, no shortness of breath Gastrointestinal: No new onset incontinence, normal bowel movements reported Genitourinary: No new onset incontinence Musculoskeletal: Low back pain Psychiatric: [Normal mood/affect] Neurological: [Denies weakness in extremities], [denies balance issues] Pain at rest (0-10 scale): 7 Objective Objective:: Physical Exam: General: Alert and oriented x3, no acute distress, pleasant and cooperative Lungs: Respirations even and unlabored, symmetrical chest expansion Eyes: PERRL Musculoskeletal: Flexion and extension of lumbar [spine] somewhat guarded secondary to pain, [antalgic gait noted] positive Kemps test Neurological: Speech clear, no gross sensory deficit Has patient had previous pain injection?: Yes Percent improvement in pain since last injection: 100% for 11 days Conservative treatment options previously tried: Home exercise plan Length of treatment: Longer than 12 weeks Meds Home Medications and Allergies Home Medications ?Medication ?Instructions ?Recorded ?Confirmed ?Type albuterol sulfate 90 mcg/actuation 1 inh inhalation DIRECTED 06/27/24 09/04/24 History aerosol inhaler Breathing Problems atenolol 25 mg tablet 25 mg PO DIRECTED BLOOD PRESSURE 06/27/24 09/04/24 History baclofen 5 mg tablet 5 mg PO TID #42 tabs 06/27/24 09/04/24 Rx fluoxetine 20 mg capsule 20 mg PO DAILY MOOD 06/27/24 09/04/24 History hydrochlorothiazide 12.5 mg capsule 12.5 mg PO DAILY Fluid 06/27/24 09/04/24 History levothyroxine 25 mcg tablet 25 mcg PO DAILY THYROID 06/27/24 09/04/24 History mirtazapine 30 mg tablet 30 mg PO DAILY 06/27/24 09/04/24 History omeprazole 20 mg capsule,delayed 20 mg PO DAILY GERD 06/27/24 09/04/24 History release pregabalin 150 mg capsule 150 mg PO Q8H Pain 06/27/24 09/04/24 History meloxicam 15 mg tablet See Rx Instructions .Route 08/02/24 09/04/24 Rx .COMPLEX #30 tabs New Prescriptions to Start Prescriptions: Allergies Allergy/AdvReac Type Severity Reaction Status Date / Time No Known Allergies Allergy Verified 06/27/24 13:15 Assessment and Plan *Assessment and plan (1) Degenerative disc disease: Status: Acute Category: Medical (2) Lumbar facet arthropathy: Status: Acute Category: Medical Code(s): M47.816 - Spondylosis without myelopathy or radiculopathy, lumbar region Plan Patient is experiencing significant pain in her low back that is worse with bending, twisting or lifting. Patient did have limited range of motion of her lumbar spine with a positive Kemps test during today's visit. I did discuss with the patient that I do believe she would benefit from her second lumbar medial branch block. Patient did have 100% relief with her first lumbar medial branch block and did get 11 days of full improvement with 0 out of 10 pain. Patient is now experiencing worsening pain that is interfering with her ability perform activities of daily living such as cooking and cleaning. Risk and benefits of the repeat injection were discussed with the patient and she would like to proceed forward with this plan of care. Patient has tried and failed conservative therapy including oral medications, heat and ice, topicals, at home stretching exercise for longer than 12 weeks. Patient has been experiencing chronic low back pain for years. Patient was counseled that if she does get significant relief with her second lumbar medial branch block we will plan on proceeding forward with the with the plan to progress forward to a lumbar RFA at a later date. Patient agrees with this plan of care. Patient will be scheduled for her second diagnostic lumbar medial branch block bilaterally L4-L5 and L5-S1 under fluoroscopy. Patient has been instructed to contact the clinic with any concerns before the next appointment. Dr. Winkler has reviewed this note and agrees with this plan of care. This note was dictated using voice recognition software and make contain errors or omissions. All injections are used with Lidocaine, Bupivacaine and dexamethasone. Occasionally urine drug screen is needed to verify patient's compliance with our office pain contract. This is ordered based off specific treatments related to chronic pain with the potential to abuse certain medications.
[2024-09-17 16:11] VITALS: BP 105/69; PULSE 88; RESP 14; O2SAT 98; BMI 35.4
== END 2024-09-17 23:59 | disposition home or self-care (01) ==
LOC: SC.PAIN 14:37
PROVIDERS: PCP Nurse Practitioner Family; Visit Provider Nurse Practitioner Family
DX: M47.816 Spondylosis without myelopathy or radiculopathy, lumbar region (principal); Z73.89 Other problems related to life management difficulty
CPT/HCPCS: 99212; G0463

== ENCOUNTER 2024-10-16 13:14 | Day surgery (SDC) | payer MEDICAID, SELFPAY ==
[2024-10-16 13:25] VITALS: BP 105/66; PULSE 82; RESP 16; O2SAT 99; BMI 37.5
[2024-10-16] MEDS: BUPIVACAINE 0.25% 10ML INJ 25 MG IJ (13:34)
[2024-10-16] MEDS: LIDOCAINE 1% 5ML PF VIAL 5 ML (13:34)
[2024-10-16] MEDS: DEXAMETHASONE 10MG/ML 1ML VIAL 10 MG (13:34)
[2024-10-16 13:35] VITALS: BP 105/66; PULSE 82; RESP 18; O2SAT 99
[2024-10-16 13:36] VITALS: BP 105/66; PULSE 82; RESP 18; O2SAT 99
--- NOTE | 2024-10-16 13:44 | P.PCN_ITS ---
Procedure Date: 10/16/24 Time: 13:30 Anesthesiologist:: Dmitri Garcia CRNA Complications:: None Pre-procedure Diagnosis:: Degenerative disc lumbar spine multilevels. Lumbar radiculopathy. Lumbar spondylosis. Multilevel lumbar facet arthropathy. Post-procedure Diagnosis:: Same. Indications for Procedure:: Patient is very pleasant 54-year-old female who comes our clinic today for ROUND TWO lumbar medial branch block bilateral L4-5, L5-S1 level. Patient describes low lumbar back pain as constant, dull, aching. She reports having difficulty with lumbar flexion, extension, left and right rotation. She rates her pain 7/10. We also managed the patient with intrathecal Dilaudid 1 mg/mL with a daily dose of 0.1518 mg/day. Procedure Details:: Informed consent was obtained and the risk and benefits of the procedure was explained to the patient. Patient was taken to the procedure room where noninvasive monitors were placed, including noninvasive blood pressure cuff as well as pulse oximeter. The area over the lumbar spine was cleansed using chlorhexidine as a cleansing solution. I anesthetized the skin and subcutaneous tissues with 1% Lidocaine. I placed 22-gauge spinal needles into the facet joint/ medial branches of L4-L5, and L5-S1] bilaterally. Needle placement was confirmed with fluoroscopy. After confirmation of needle placement, each site was injected with 1 mL of 1% lidocaine and 0.25 % Marcaine and 10 mg of Depo-Me drol. A total of 80 mg of depo medrol was used for bilateral medial branch blocks of L4-L5, and L5-S1] bilaterally. Patient tolerated the procedure without difficulty. There were no complications. Plan and Disposition:: Patient was discharged without incident.
[2024-10-16 13:49] VITALS: BP 120/78; PULSE 84; RESP 16; O2SAT 98
== END 2024-10-16 13:49 | disposition home or self-care (01) ==
PROVIDERS: PCP Nurse Practitioner Family; Visit Provider Nurse Anesthetist, Certified Registered
DX: M47.816 Spondylosis without myelopathy or radiculopathy, lumbar region (principal); M47.817 Spondylosis without myelopathy or radiculopathy, lumbosacral region; K21.9 Gastro-esophageal reflux disease without esophagitis; E03.9 Hypothyroidism, unspecified; F32.A Depression, unspecified; I10 Essential (primary) hypertension; M50.30 Other cervical disc degeneration, unspecified cervical region; Z79.899 Other long term (current) drug therapy
CPT/HCPCS: 64493; 64494; J0665; J1100; J2003

== ENCOUNTER 2024-11-02 10:16 | Day surgery (SDC) | payer MEDICAID, SELFPAY ==
--- NOTE | 2024-11-02 10:23 | EXP.PM.HP ---
History of Present Illness *Admission Date: 11/02/24 *Reason for visit:: Intrathecal refill; DDD *History of present illness: Same [facility] Disclaimer: The information contained in this section may have been updated after the patient was seen, as this information can be updated by other users. Medical History GERD (gastroesophageal reflux disease) Hypothyroidism Depression HTN (hypertension) DDD (degenerative disc disease), lumbar DDD (degenerative disc disease), cervical Lumbar spondylosis Surgical History H/O neck surgery H/O hernia repair Family History Other Unknown family medical history Social History Smoking Status: Unknown if ever smoked alcohol intake: never current occupational status: other Travel in the last 8 weeks?: None Have you lived/traveled outside US in past 30 days?: No Contact w/someone who lives/traveled outside US past 30 days?: No Exposure to someone with infectious disease in past 14 days?: No Do you have a fever (greater than 100.4 F or 38 C)?: No Have you tested positive for COVID-19?: No Exposed to someone with COVID-19 in past 14 days?: No Do you have a sore throat?: No Do you have a cough?: No Do you have any weakness?: No Do you have any diarrhea?: No Are you experiencing any unusual bleeding?: No Do you have any muscle aches/pain?: No Do you have any abdominal pain?: No Are you experiencing loss of taste or smell?: No Other Medical History Have you received the Flu Vaccine for this season: No Have you received the Pneumonia Vaccine: No Review of Systems Review of Systems Review of systems:: pertinent systems reviewed and negative unless documented below Review of systems (narrative): Review of Systems: General: No recent weight changes, no fever, no sleep disturbances Respiratory: No cough, no shortness of air, no recurring pulmonary infections Cardiovascular/peripheral vascular: No chest pain, no palpitations, no edema, no shortness of breath Gastrointestinal: No new onset incontinence, normal bowel movements reported Genitourinary: No new onset incontinence Musculoskeletal: Chronic back pain Psychiatric: [Normal mood/affect] Neurological: [Denies weakness in extremities], [denies balance issues] Meds Home Medications and Allergies Home Medications ?Medication ?Instructions ?Recorded ?Confirmed ?Type albuterol sulfate 90 mcg/actuation 1 inh inhalation DIRECTED 06/27/24 10/16/24 History aerosol inhaler Breathing Problems atenolol 25 mg tablet 25 mg PO DIRECTED BLOOD PRESSURE 06/27/24 10/16/24 History baclofen 5 mg tablet 5 mg PO TID #42 tabs 06/27/24 10/16/24 Rx fluoxetine 20 mg capsule 20 mg PO DAILY MOOD 06/27/24 10/16/24 History hydrochlorothiazide 12.5 mg capsule 12.5 mg PO DAILY Fluid 06/27/24 10/16/24 History levothyroxine 25 mcg tablet 25 mcg PO DAILY THYROID 06/27/24 10/16/24 History mirtazapine 30 mg tablet 30 mg PO DAILY 06/27/24 10/16/24 History omeprazole 20 mg capsule,delayed 20 mg PO DAILY GERD 06/27/24 10/16/24 History release pregabalin 150 mg capsule 150 mg PO Q8H Pain 06/27/24 10/16/24 History meloxicam 15 mg tablet See Rx Instructions .Route 08/02/24 10/16/24 Rx .COMPLEX #30 tabs New Prescriptions to Start Prescriptions: Allergies Allergy/AdvReac Type Severity Reaction Status Date / Time No Known Allergies Allergy Verified 06/27/24 13:15 Exam Constitutional Constitutional: no acute distress *Routine HEENT Exam Head: Present normocephalic and atraumatic Eye: Present PERRL ENT: Present mucous membranes moist *Routine Neck Exam Neck: Present supple *Routine Respiratory Exam Respiratory: Present CTA bilaterally *Routine Cardiovascular Exam Cardiovascular: Present RRR *Routine Abdominal Exam Abdominal: Present soft *Routine Rectal Exam Rectal:: deferred *Routine Genitalia Exam Genitalia:: deferred Routine Back/Spine/Pelvis Exam Back/Spine: Present pain with flexion *Routine Skin Exam Skin: Present intact and warm *Routine Neurological Exam Neurological: Present alert and oriented X3 Routine Psychiatric Exam Psychiatric: Present normal affect and normal thought process Assessment and Plan *Assessment and plan (1) Lumbar facet arthropathy: Status: Acute Category: Medical Code(s): M47.816 - Spondylosis without myelopathy or radiculopathy, lumbar region (2) Degenerative disc disease: Status: Acute Category: Medical (3) Chronic back pain: Status: Acute Category: Medical Code(s): M54.9 - Dorsalgia, unspecified; G89.29 - Other chronic pain Plan Patient has been instructed to contact the clinic with any concerns before the next appointment. Dr. Winkler has reviewed this note and agrees with this plan of care. This note was dictated using voice recognition software and make contain errors or omissions. All injections are used with Lidocaine, Bupivacaine and dexamethasone. Occasionally urine drug screen is needed to verify patient's compliance with our office pain contract. This is ordered based off specific treatments related to chronic pain with the potential to abuse certain medications.
--- NOTE | 2024-11-02 10:27 | EXP.PAIN.PRO ---
Procedure Date: 11/02/24 Time: 10:15 Anesthesiologist:: Laxmi Hooks APRN Complications:: None Pre-procedure Diagnosis:: Degenerative disc disease of lumbar spine, chronic pain syndrome Post-procedure Diagnosis:: Same Indications for Procedure:: Patient is a pleasant 54-year-old female who presents today for intrathecal refill and reprogram. She rates her pain today a 5 out of 10. She still is having trouble with her legs and swelling. Patient did end up having her second lumbar medial branch block on 10/16/2024. Patient states while it was nice and numb it did seem to work well with 80% relief however it did feel like it was short-lived and did not last as long as the first 1. She does state that it really just denies seem to kick back in and that she is not really having any pain across her back. Patient denies any new falls or injuries.Patient is managed with intrathecal Dilaudid 1 mg/mL with a daily dose of 0.1518 mg/day. She denies any side effects. Patient is on pregabalin from an outside provider. Her Jr has been reviewed and is appropriate. Physical Exam: General: Alert and oriented x3, no acute distress, pleasant and cooperative Lungs: Respirations even and unlabored, symmetrical chest expansion Eyes: PERRL Musculoskeletal: Flexion and extension of lumbar [spine] somewhat guarded secondary to pain, [antalgic gait noted] Neurological: Speech clear, no gross sensory deficit Procedure Details:: Informed consent was obtained and the risk and benefits of the procedure were explained to the patient. The patient had noninvasive monitoring placed including noninvasive blood pressure cuff and pulse oximeter. Patient's pump was interrogated. The area over the pump was cleansed with chlorhexidine as a cleansing solution. In sterile fashion the pump was accessed with a 22-gauge needle. Approximately 4.5 mls of the pump solution was removed and discarded appropriately. The pump was then refilled with 20 mL's of Dilaudid 1 mg/mL. The needle was withdrawn and a bandage was placed over the puncture site. The infusion rate was reprogrammed and continued at its current dosage. The patient tolerated well with no complication. Plan and Disposition:: Patient tolerated the procedure well with no complications and was discharged neurologically intact. I did discuss with patient that we will plan on submitting to add bupivacaine 5 mg/mL with a starting dose of 2.5 mg/day at her next pump refill date. Patient agrees with this plan of care. I did also review with the patient due to the fact that she felt like the injection other than while it was not just started to kick in test today that I would like to see her back in 2 weeks to evaluate how long the second lumbar medial branch block provides relief. Patient was counseled we will plan to definitely proceed forward with the lumbar RFA at a later date. Patient agrees with this plan of care. Patient will return to clinic on or before their next intrathecal refill date. We will see the patient back in the clinic at the next intrathecal refill. Patient has been instructed to contact the clinic with any concerns before the next appointment. Dr. Winkler has reviewed this note and agrees with this plan of care. This note was dictated using voice recognition software and make contain errors or omissions. -- It Is medically necessary for this patient to continue to have their intrathecal pump refilled at regular intervals. This patient had an intrathecal pain pump implanted after meeting criteria of chronic intractable pain for greater than 3 months and failing conservative treatments. Patient has committed and been compliant to the treatment plan and all planned follow up care. Since implantation of the intrathecal pain pump, the patient has had decreased pain and been more functional. Oral medications have been reduced including intake of oral opioids. Patient continues to do well with intrathecal therapy with decrease in pain symptoms and increase in functional status. Stopping intrathecal medications can lead to life threatening withdrawal, seizures, cardiac arrest, severe pain, and possible . Pumps that are not refilled at regular intervals can be damages and cause and need for replacement. We continually titrate dose and concentration to optimize pain relief and function. We are limited in concentration for certain drugs to safely deliver medications through the pump and stay within the recommendations from the Polyanalgesic Consensus Committee Guidelines. Depending on dose and concentration these pumps may need to be refilled sooner than 3 months as we titrate. A UDS is needed to verify patient's compliance with our office pain contract. This is ordered based off specific treatments related to chronic pain with the potential to abuse certain medications.
[2024-11-02 10:28] VITALS: BP 113/73; PULSE 77; RESP 18; O2SAT 99; BMI 35.4
[2024-11-02 10:31] VITALS: BP 138/64; PULSE 83; RESP 18; O2SAT 96
[2024-11-02 11:00] VITALS: BP 109/68; PULSE 87; RESP 18; O2SAT 99
== END 2024-11-02 11:00 | disposition home or self-care (01) ==
PROVIDERS: PCP Nurse Practitioner Family; Visit Provider Nurse Practitioner Family
DX: Z45.1 Encounter for adjustment and management of infusion pump (principal); M51.369 Other intervertebral disc degeneration, lumbar region without mention of lumbar back pain or lower extremity pain; G89.4 Chronic pain syndrome; F32.A Depression, unspecified; I10 Essential (primary) hypertension; K21.9 Gastro-esophageal reflux disease without esophagitis; E03.9 Hypothyroidism, unspecified; Z79.890 Hormone replacement therapy; Z79.899 Other long term (current) drug therapy
CPT/HCPCS: 95991

== ENCOUNTER 2024-11-21 15:10 | Outpatient (POV) | payer MEDICAID, SELFPAY ==
--- OUTSIDE RECORDS SUMMARY | 2024-11-21 15:12 | XMS_ITS | Encounter Summary ---
Author Organization [employer] ([place], [place], [place], [place]) Address [address] [place] [address] Care Team Providers Care Upholstery Sewer Name Role Phone [facility], Provider Not In The System Primary Care Provider Unavailable Encounter Details Date Type Department Care Team (Late st Contact Info) Description 12/14/2019 Transcribed Document [facility] Neurology - [facility] [address] [id number] Jah Robbins Jr., MD [address] [place] [address] Social History Tobacco Use Types Packs/Day Years Used Date Smoking Tobacco: Never Assessed Comments Unknown Sex and Gender Information Value Date Recorded Sex Assigned at Female 11/03/2021 8:12 PM CDT Legal Sex Female 8:12 PM CDT Gender Identity Female 11/03/2021 8:12 PM CDT Sexual Orientation Not on file documented as of this encounter Miscellaneous Notes * Cerner Conversion Note - Jah Robbins Jr., MD - 12/14/2019 5:10 PM EDT Patient: NASRIN MAY Age: 49 Years Sex: Female : 1970 *Operation c3-5 posterolateral arthrodesis with lateral mass screws, c3-5 laminectomy *Preoperative Diagnosis instability w/ myelopathy *Postoperative Diagnosis same *Surgeon(s) kirt *Estimated Blood Loss <150ml *Findings see dict *Specimen(s) epidural mass/ligament for permanent Complications none Date of Service Date/Time of Service SN - Proc - Start Time: 12/14/19 14:19:00 (12/14/19 14:36:32) SN - Proc - Start Time: 12/14/19 14:19:00 (12/14/19 14:36:32) SN - Proc - Start Time: 12/14/19 14:19:00 (12/14/19 14:36:32) documented in this encounter Plan of Treatment Not on file documented as of this encounter Visit Diagnoses Not on filedocumented in this encounter Care Teams Upholstery Sewer Relationship Specialty Start Date End Date [facility], Provider Not In The System, [place] [address] PCP - General 09/23/22 documented as of this encounter
--- OUTSIDE RECORDS SUMMARY | 2024-11-21 15:12 | XMS_ITS | Encounter Summary ---
Author Organization [employer] ([place], [place], [place], [place]) Address [address] [place] [address] Care Team Providers Care Trauma Registrar Name Role Phone [facility], Provider Not In The System Primary Care Provider Unavailable Encounter Details Date Type Department Care Team (Late st Contact Info) Description 12/12/2019 Transcribed Document [facility] Family Medicine [address] [place] [address] ProviderFer MD [address] [place] [address] Social History Tobacco Use Types Packs/Day Years Used Date Smoking Tobacco: Never Assessed Comments Unknown Sex and Gender Information Value Date Recorded Sex Assigned at Female 11/03/2021 8:12 PM CDT Legal Sex Female 8:12 PM CDT Gender Identity Female 11/03/2021 8:12 PM CDT Sexual Orientation Not on file documented as of this encounter Miscellaneous Notes * Cerner Conversion Note - Historical ProviderMD - 12/12/2019 2:49 PM CDT Spiritual Care Assessment Entered On: 12/12/2019 15:36 EDT Performed On: 12/12/2019 14:20 EDT by Kb Rosenthal Chaplain-Non Cert General Information Referred by : Other: Pre-surgery Ministry Provided to : Patient Kb Rosenthal Chaplain-Non Cert - 12/12/2019 15:35 EDT Spiritual Assessment Spiritual Assessment Comment/Summary Points : Spiritual care and supportive visit with patient. Spirital Assessment Comment/Summary Report : SPIRITUAL ASSESSMENT COMMENT/SUMMARY No qualifying data available. Kb Rosenthal Chaplain-Non Cert - 12/12/2019 15:35 EDT Interventions Emotional Support : Empathic/Engaged listening, Feelings expressed Spiritual and Mandaen : Spiritual/Mandaen support provided Kb Rosenthal Chaplain-Non Cert - 12/12/2019 15:35 EDT documented in this encounter Plan of Treatment Not on file documented as of this encounter Visit Diagnoses Not on filedocumented in this encounter Care Teams Trauma Registrar Relationship Specialty Start Date End Date [facility], Provider Not In The System, [place] [address] PCP - General 09/23/22 documented as of this encounter
--- OUTSIDE RECORDS SUMMARY | 2024-11-21 15:12 | XMS_ITS | Encounter Summary ---
Author Organization [employer] ([place], [place], [place], [place]) Address [address] [place] [address] Care Team Providers Care Cleaners Name Role Phone [facility], Provider Not In The System Primary Care Provider Unavailable Encounter Details Date Type Department Care Team (Late st Contact Info) Description 12/13/2019 Transcribed Document [facility] Family Medicine [address] [place] [address] ProviderFer MD [address] [place] [address] Social History Tobacco Use Types Packs/Day Years Used Date Smoking Tobacco: Never Assessed Comments Unknown Sex and Gender Information Value Date Recorded Sex Assigned at Female 11/03/2021 8:12 PM CDT Legal Sex Female 8:12 PM CDT Gender Identity Female 11/03/2021 8:12 PM CDT Sexual Orientation Not on file documented as of this encounter Miscellaneous Notes * Cerner Conversion Note - Historical ProviderMD - 12/13/2019 1:30 PM CDT UM Authorization Entered On: 12/13/2019 13:31 EDT Performed On: 12/13/2019 13:30 EDT by MELISSA LIU, Skilled Trades Teacher Primary Insurance Authorization Authorization and Policy Numbers : Insurance 1 Health Plan: [employer] Policy Number: [id number] Authorization Number: Insurance Primary Name : [facility] [id number] Authorization Number-Primary : See Comments Authorized Service Begin Date-Primary : 12/14/2019 EDT Authorization Comments-Primary : pt is scheduled for INPT Lumbar Fusion Posterior 3 Level Cervical Discectomy Fusion Posterior and Cervical Laminectomy Posterior on Tuesday12/14/2019 PA will call and obtain auth on date of serv. Historical Authorization Comments-Primary : No Authorization Comments Found MELISSA LIU, Skilled Trades Teacher - 12/13/2019 13:30 EDT documented in this encounter Plan of Treatment Not on file documented as of this encounter Visit Diagnoses Not on filedocumented in this encounter Care Teams Cleaners Relationship Specialty Start Date End Date [facility], Provider Not In The System, [place] [address] PCP - General 09/23/22 documented as of this encounter
--- OUTSIDE RECORDS SUMMARY | 2024-11-21 15:12 | XMS_ITS | Encounter Summary ---
Author Organization [employer] ([place], [place], [place], [place]) Address [address] [place] [address] Care Team Providers Care Adjuster Leader Name Role Phone [facility], Provider Not In The System Primary Care Provider Unavailable Encounter Details Date Type Department Care Team (Late st Contact Info) Description 12/12/2019 Transcribed Document [facility] [place] [place] Family Medicine [address] [place] [address] ProviderFer MD [address] [place] [address] Social History Tobacco Use Types Packs/Day Years [...] Conversion Note - Historical ProviderMD - 12/12/2019 2:14 PM CDT PAT Adult Entered On: 12/12/2019 14:17 EDT Performed On: 12/12/2019 14:14 EDT by ZAKIYA NIELSEN RN Vital Measurements Temperature Source : Temporal artery scanning Temperature Mode : Fahrenheit Temperature, Fahrenheit : 97.1 Deg F Clinical Temperature, C : 36.2 Deg C Pulse Method : Pulse Oximetry Peripheral Pulse Rate : 69 bpm Blood Pressure Location : Arm, right upper Blood Pressure Source : Non-Invasive BP Device Blood Pressure Position : Sitting Systolic Blood Pressure : 126 mmHg Diastolic Blood Pressure : 70 mmHg Oxygen Saturation : 99 % Oxygen Therapy Mode : Room air ZAKIYA NIELSEN RN - 12/12/2019 14:14 EDT Pain Assessment Pain Assessment : Initial assessment Pain Scale Goal : 4 ZAKIYA NIELSEN RN - 12/12/2019 14:42 EDT Height and Weight, Clinical Dosing Height Source : Measured Height Entry Format : [place] Height, Feet : 0 ft(Converted to: 0 cm, 0 Inch) Height, Inches : 63.25 Inch(Converted to: 5 ft 3 Inch, 160.65 cm) Clinical Height : 160.66 cm Weight Source : Standing scale Weight Entry Format : [place] Clinical Dosing Weight : 67.07 kg Weight, Pounds : 147 lb Weight, Ounces : 9 oz Body Surface Area (BSA) : 1.71 m2 Body Mass Index : 26 kg/m2 (HI) [place] Body Weight : 53 kg ZAKIYA NIELSEN RN - 12/12/2019 14:14 EDT Health Histories Smoking Status : 10 or more cigarettes (1/2 pack or more)/day in last 30 days Smokeless Tobacco Status : Never Desires Tobacco Cessation Medication : No Reason for No Tobacco Cessation Medication : Refuses FDA approved medications ZAKIYA NIELSEN RN - 12/12/2019 14:14 EDT Social History (As Of: 12/12/2019 14:17:52 EDT) Tobacco: Smoking Status Current every day smoker. Five or more cigarettes per day Smoking Frequency Within Last 30 Days. Use in Last 12 Months: Cigarettes. Years of Use: 20. Packs/Tins Daily: 1.5. Used Tobacco, but Quit No. Second Hand Smoke Exposure: Yes. (Last Updated: 04/01/2017 09:33:38 EST by ROMY LEIWS, RN) Alcohol: Alcohol Use History Yes. Days/Week: 4. # Drinks/Day: 3. Total Drinks/Week: 12. (Last Updated: 04/01/2017 09:34:04 EST by ROMY LEWIS, RN) Substance Abuse: Drug Use Hx: No. Use in Last 12 Months: No. (Last Updated: 04/01/2017 09:34:10 EST by ROMY LEWIS, RN) Infectious Disease History Date of COVID-19 Test : 12/12/2019 EDT Has the patient ever been tested for COVID-19? : Yes, Patient stated results Negative Luna Castellano, Nurse Contract Programmer - 12/14/2019 11:17 EDT Date of COVID-19 test known? : Yes Does patient have symptoms of COVID-19? : No COVID19 Screening : No Experiencing Infectious Disease Symptoms : No symptoms Physical contact outside [place] in the last 30 days : No Infectious Disease History : Chicken pox/Shingles Tuberculosis Symptoms : None ZAKIYA NIELSEN RN - 12/12/2019 14:14 EDT COVID19 PreProcedure Screening Has patient been isolated since the test : Yes Exposed to COVID19 symptoms since test? : No Luna Castellano, Nurse Contract Programmer - 12/14/2019 11:17 EDT Is this an Emergent or Add on Procedure? : No ZAKIYA NIELSEN RN - 12/12/2019 14:14 EDT Anesthesia/Transfusion History Family History of Anesthesia Reaction : No prior transfusion(s) Blood Transfusion Acceptable to Patient : Yes Transfusion History : Prior anesthesia without reaction Family History of Anesthesia Reaction : None ZAKIYA NIELSEN RN - 12/12/2019 14:14 EDT Advance Directive Patient has Advance Directive *Q : No, patient refuses Advance Directive information ZAKIYA NIELSEN RN - 12/12/2019 14:42 EDT Spiritual/Cultural Needs Any Spiritual/Cultural Needs or Requests : Yes Spiritual/Cultural Needs Comment : prayer before surgery (12/13 in at 1000) Spiritual/Cultural Needs Comment : prayer before surgery (12/13 in at 1000) ZAKIYA NIELSEN RN - 12/12/2019 14:42 EDT [place] Suicide Severity Rating Scale (C-SSRS) CSSRS Past Month Wish to be : No CSSRS Past Month Suicidal Thoughts : No CSSRS Lifetime Suicide Behavior : No Suicide Severity Rating Score : 0 Suicide Severity Rating : No Additional Care Required at this time ZAKIYA NIELSEN RN - 12/12/2019 14:42 EDT Psychosocial History Do You Have a History of the Following? : Anxiety, Depression, Other: panic attacks Currently in Unsafe Situation : No ZAKIYA NIELSEN RN - 12/12/2019 14:42 EDT Teaching/Learning Assessment Barriers To Learning : None evident Individuals Taught : Patient Readiness to Learn : Cooperative ZAKIYA NIELSEN RN - 12/12/2019 14:42 EDT Education Topics, Periop Preadmission Perioperative Education Grid Arrival Time/Place : Verbalizes understanding CHG Preoperative Bathing/Cloths : Verbalizes understanding Infection Control : Verbalizes understanding IV's : Verbalizes understanding NPO Status/Directions : Verbalizes understanding Pain Management : Verbalizes understanding Preprocedure Preparations : Verbalizes understanding Preprocedure Tests/Labs : Verbalizes understanding Remove Body Piercings : Verbalizes understanding Responsible Adult : Verbalizes understanding Take/Hold Medications Pre-Procedure : Verbalizes understanding Other : Verbalizes understanding (Comment: Bactroban [ZAKIYA NIELSEN RN - 12/12/2019 14:42 EDT] ) General Info Preferred Name : Nasrin Support Person/Patient Baster Hand : Yes Support Person/Pt Rep Name : Jenelle Agustin Support Person/Pt Rep Contact Information : Want Family/Rep/Phys Notified of Admit : No Emergency Contact #1 : Jenelle Agustin Emergency Contact #1 Emergency Contact #1 Relationship : mother Emergency Contact #2 : n Emergency Contact #2 Phone Number : n Emergency Contact #2 Relationship : n Information Obtained From : Patient Primary Language : Malaysian Preferred Communication Mode : Verbal Communication Barrier : None Financial Systems Director Needed : No Objects to Sharing Info w Family : Yes Status : Patient denies ZAKIYA NIELSEN RN - 12/12/2019 14:42 EDT Korey Scale Korey Sensory Perception : Very limited Korey Moisture : Rarely moist Korey Activity : Walks occasionally Korey Mobility : Very limited Korey Nutrition : Adequate Korey Friction and Shear : No apparent problem Korey Score : 17 ZAKIYA NIELSEN RN - 12/12/2019 14:42 EDT Sleep Apnea Risk Assmt Hx of Obstructive Sleep Apnea Diagnosis : No Snore Loudly : No Tired, Fatigued, or Sleepy During Day : Yes Observed Stopping Breathing During Sleep : No Have/Are Being Treated for Hypertension : Yes BMI Greater Than 35 kg/m2 : No Age over 50 Years Old : No Neck Circumference Greater Than 40 cm : No Gender Male : No STOP-BANG Sleep Apnea Risk Level Score : 2 ZAKIYA NIELSEN RN - 12/12/2019 14:14 EDT documented in this encounter Plan of Treatment Not on file documented as of this encounter Visit Diagnoses Not on filedocumented in this encounter Care Teams Adjuster Leader Relationship Specialty Start Date End Date [facility], Provider Not In The System, [place] [address] PCP - General 09/23/22 documented as of this encounter
--- OUTSIDE RECORDS SUMMARY | 2024-11-21 15:12 | XMS_ITS | Encounter Summary ---
Author Organization [employer] ([place], [place], [place], [place]) Address [address] [place] [address] Care Team Providers Care Stock Patch Sawyer Name Role Phone [facility], Provider Not In The System Primary Care Provider Unavailable Encounter Details Date Type Department Care Team (Late st Contact Info) Description 12/14/2019 Transcribed Document [facility] Family Medicine [address] [place] [address] ProviderFer MD [address] [place] [address] Social History Tobacco Use Types Packs/Day Years Used Date Smoking Tobacco: Never Assessed Comments Unknown Sex and Gender Information Value Date Recorded Sex Assigned at Female 11/03/2021 8:12 PM CDT Legal Sex Female 8:12 PM CDT Gender Identity Female 11/03/2021 8:12 PM CDT Sexual Orientation Not on file documented as of this encounter Miscellaneous Notes * Cerner Conversion Note - Fer ProviderMD - 12/14/2019 4:09 PM CDT Pain Assessment Entered On: 12/15/2019 17:23 EDT Performed On: 12/15/2019 10:51 EDT by JONE THAKUR RN Intervention Information: acetaminophen-oxyCODONE Performed by JONE THAKUR RN on 12/15/2019 09:51:00 EDT acetaminophen-oxyCODONE,1Tab Oral,Pain (Severe 7-10) Pain Assessment Pain Assessment : Follow-up assessment Pain Scale Goal : 4 Pain Scale Used : 0-10 Scale JONE THAKUR RN - 12/15/2019 17:23 EDT Pain Scale Intensity : 4 JONE THAKUR RN - 12/15/2019 17:23 EDT Image 4 - Images currently included in the form version of this document have not been included in the text rendition version of the form. documented in this encounter Plan of Treatment Not on file documented as of this encounter Visit Diagnoses Not on filedocumented in this encounter Care Teams Stock Patch Sawyer Relationship Specialty Start Date End Date [facility], Provider Not In The System, [place] [address] PCP - General 09/23/22 documented as of this encounter
--- OUTSIDE RECORDS SUMMARY | 2024-11-21 15:12 | XMS_ITS | Encounter Summary ---
Author Organization [employer] ([place], [place], [place], [place]) Address [address] [place] [address] Care Team Providers Care Chief Building Inspector Name Role Phone [facility], Provider Not In The System Primary Care Provider Unavailable Encounter Details Date Type Department Care Team (Late st Contact Info) Description 12/14/2019 Transcribed Document [facility] [place] [facility] Family Medicine [address] [place] [address] ProviderFer MD [address] [place] [address] Social History Tobacco Use Types Packs/Day Years Used Date Smoking Tobacco: Never Assessed Comments Unknown Sex and Gender Information Value Date Recorded Sex Assigned at Female 11/03/2021 8:12 PM CDT Legal Sex Female 8:12 PM CDT Gender Identity Female 11/03/2021 8:12 PM CDT Sexual Orientation Not on file documented as of this encounter Miscellaneous Notes * Cerner Conversion Note - Historical ProviderMD - 12/14/2019 2:19 PM CDT [facility] Main OR IntraOp Summary Primary Physician: ALEX THAKUR MD-JOVITA Finalized Date/Time: 12/18/19 09:29:39 Pt. Name: NASRIN MAY /Sex: 1970 Female Med Rec #: [id number] Physician: ALEX THAKUR MD-JOVITA Financial #: [id number] Pt. Type: I Room/Bed: 638/1 Admit/Disch: 08/07/20 05:54:00 - 12/17/19 14:37:00 Institution: [facility] IntraOp Case Attendance Entry 1 Entry 2 Entry 3 Case Attendee ALEX THAKUR MD-SNU Devon Maloney, DELMY ATKINS NA Role Performed Surgeon/Proceduralist, Industrial Machine Operator, First PATIENT SUPPORT SPECIALIST/Nurse Fishing Tackle Repairer First Time In 12/14/19 13:36:00 12/14/19 13:36:00 12/14/19 13:36:00 Time Out 12/14/19 16:10:00 12/14/19 14:51:00 12/14/19 14:21:00 Procedure Lumbar Fusion Posterior Lumbar Fusion Posterior Lumbar Fusion Posterior 3 Level, Cervical 3 Level, Cervical 3 Level, Cervical Laminectomy Posterior, Laminectomy Posterior, Laminectomy Posterior, Cervical Discectomy Cervical Discectomy Cervical Discectomy Fusion Posterior Fusion Posterior Fusion Posterior Other Attendee Superficial Wound Closed By: Last Modified By: Luis Fernando Oshea RN Harover, Michael, RN Byrd, Charlie D, RN 12/14/19 16:10:49 12/14/19 14:58:57 12/14/19 14:23:30 Entry 4 Entry 5 Entry 6 Case Attendee JAMIE ZAPIEN CRNA GULLETTE, ERIN M. WILSON, MATTHEW L, MD-ANS Role Performed PATIENT SUPPORT SPECIALIST/Nurse Fishing Tackle Repairer Scrub, First Anesthesiologist of Record Time In 12/14/19 14:21:00 12/14/19 13:36:00 12/14/19 13:36:00 Time Out 12/14/19 15:32:00 12/14/19 15:12:00 12/14/19 16:10:00 Procedure Lumbar Fusion Posterior Lumbar Fusion Posterior Lumbar Fusion Posterior 3 Level, Cervical 3 Level, Cervical 3 Level, Cervical Laminectomy Posterior, Laminectomy Posterior, Laminectomy Posterior, Cervical Discectomy Cervical Discectomy Cervical Discectomy Fusion Posterior Fusion Posterior Fusion Posterior Other Attendee Superficial Wound Closed By: Last Modified By: Luis Fernando Oshea RN Harover, Michael, RN Harover, Michael, RN 12/14/19 15:42:24 12/14/19 15:39:58 12/14/19 16:10:49 Entry 7 Entry 8 Entry 9 Case Attendee OTHER, ATTENDEE #1 YEYO MEDINA MEGHAN, PA Role Performed Vendor Flotation Tender Physician evaluation assistant Time In 12/14/19 13:36:00 12/14/19 13:36:00 12/14/19 13:36:00 Time Out 12/14/19 16:10:00 12/14/19 16:10:00 12/14/19 16:10:00 Procedure Lumbar Fusion Posterior Lumbar Fusion Posterior Lumbar Fusion Posterior 3 Level, Cervical 3 Level, Cervical 3 Level, Cervical Laminectomy Posterior, Laminectomy Posterior, Laminectomy Posterior, Cervical Discectomy Cervical Discectomy Cervical Discectomy Fusion Posterior Fusion Posterior Fusion Posterior Other Attendee AMY PRESSLEY Superficial Wound Closed By: Last Modified By: Devon Maloney RN Harover, Michael, RN Harover, Michael, RN 12/14/19 14:23:30 12/14/19 16:10:49 12/14/19 16:10:49 Entry 10 Entry 11 Entry 12 Case Attendee Luis Fernando Oshea RN Nichols, Tanya, LISA SHETH APRN Role Performed Industrial Machine Operator, First Scrub, First PATIENT SUPPORT SPECIALIST/Nurse Fishing Tackle Repairer Time In 12/14/19 14:50:00 12/14/19 15:08:00 12/14/19 15:30:00 Time Out 12/14/19 16:10:00 12/14/19 16:10:00 12/14/19 16:10:00 Procedure Lumbar Fusion Posterior Lumbar Fusion Posterior Lumbar Fusion Posterior 3 Level, Cervical 3 Level, Cervical 3 Level, Cervical Laminectomy Posterior, Laminectomy Posterior, Laminectomy Posterior, Cervical Discectomy Cervical Discectomy Cervical Discectomy Fusion Posterior Fusion Posterior Fusion Posterior Other Attendee relief Superficial Wound Closed By: Last Modified By: Luis Fernando Oshea RN Harover, Michael, RN Harover, Michael, RN 12/14/19 16:10:49 12/14/19 15:16:08 12/14/19 16:10:49 [facility] IntraOp Case Attendance Audit 12/14/19 16:10:49 Flight Engineer Instructor: [id number] Modifier: [id number] <+> Time Out 1 <*> Procedure Lumbar Fusion Posterior 3 Level, Cervical Laminectomy Posterior, Cervical Discectomy Fusion Posterior 2 <*> Procedure Lumbar Fusion Posterior 3 Level, Cervical Laminectomy Posterior, Cervical Discectomy Fusion Posterior 3 <*> Procedure Lumbar Fusion Posterior 3 Level, Cervical Laminectomy Posterior, Cervical Discectomy Fusion Posterior 4 <*> Procedure Lumbar Fusion Posterior 3 Level, Cervical Laminectomy Posterior, Cervical Discectomy Fusion Posterior 5 <*> Procedure Lumbar Fusion Posterior 3 Level, Cervical Laminectomy Posterior, Cervical Discectomy Fusion Posterior 6 <+> Time Out 6 <*> Procedure Lumbar Fusion Posterior 3 Level, Cervical Laminectomy Posterior, Cervical Discectomy Fusion Posterior 7 <+> Time Out 7 <*> Procedure Lumbar Fusion Posterior 3 Level, Cervical Laminectomy Posterior, Cervical Discectomy Fusion Posterior 8 <+> Time Out 8 <*> Procedure Lumbar Fusion Posterior 3 Level, Cervical Laminectomy Posterior, Cervical Discectomy Fusion Posterior 9 <+> Time Out 9 <*> Procedure Lumbar Fusion Posterior 3 Level, Cervical Laminectomy Posterior, Cervical Discectomy Fusion Posterior 10 <+> Time Out 10 <*> Procedure Lumbar Fusion Posterior 3 Level, Cervical Laminectomy Posterior, Cervical Discectomy Fusion Posterior 11 <+> Time Out 11 <*> Procedure Lumbar Fusion Posterior 3 Level, Cervical Laminectomy Posterior, Cervical Discectomy Fusion Posterior 12 <+> Time Out 12 <*> Procedure Lumbar Fusion Posterior 3 Level, Cervical Laminectomy Posterior, Cervical Discectomy Fusion Posterior 12/14/19 15:42:24 Flight Engineer Instructor: [id number] Modifier: [id number] <+> 3 Procedure <+> 4 Time Out <+> 4 Procedure <+> 5 Procedure <+> 6 Procedure <+> 7 Procedure <+> 8 Procedure <+> 9 Procedure <+> 12 Case Attendee <+> 12 Role Performed <+> 12 Time In <+> 12 Procedure 12/14/19 15:39:58 Flight Engineer Instructor: [id number] Modifier: [id number] <+> 5 Time Out 12/14/19 15:16:08 Flight Engineer Instructor: [id number] Modifier: [id number] <+> 11 Case Attendee <+> 11 Role Performed <+> 11 Time In <+> 11 Procedure <+> 11 Other Attendee 12/14/19 14:58:57 Flight Engineer Instructor: [email or web address] Modifier: [id number] <+> Time Out 2 <*> Procedure Lumbar Fusion Posterior 3 Level, Cervical Laminectomy Posterior, Cervical Discectomy Fusion Posterior <+> 10 Case Attendee <+> 10 Role Performed <+> 10 Time In <+> 10 Procedure 12/14/19 14:36:52 Flight Engineer Instructor: [email or web address] Modifier: [email or web address] 1 <*> Procedure Lumbar Fusion Posterior 3 Level, Cervical Laminectomy Posterior, Cervical Discectomy Fusion Posterior 2 <+> Role Performed 2 <*> Procedure Lumbar Fusion Posterior 3 Level, Cervical Laminectomy Posterior, Cervical Discectomy Fusion Posterior <+> 9 Time In 12/14/19 14:24:23 Flight Engineer Instructor: [email or web address] Modifier: [email or web address] 1 <*> Procedure Lumbar Fusion Posterior 3 Level, Cervical Laminectomy Posterior, Cervical Discectomy Fusion Posterior 2 <+> Time In 2 <*> Procedure Lumbar Fusion Posterior 3 Level, Cervical Laminectomy Posterior, Cervical Discectomy Fusion Posterior <+> 3 Time In <+> 5 Time In <+> 6 Time In <+> 7 Time In <+> 8 Time In <+> 9 Case Attendee <+> 9 Role Performed 12/14/19 14:23:30 Flight Engineer Instructor: [email or web address] Modifier: [email or web address] <+> 1 Procedure <+> 2 Case Attendee <+> 2 Procedure <+> 3 Case Attendee <+> 3 Role Performed <+> 3 Time Out <+> 4 Case Attendee <+> 4 Role Performed <+> 4 Time In <+> 5 Case Attendee <+> 5 Role Performed <+> 6 Case Attendee <+> 6 Role Performed <+> 7 Case Attendee <+> 7 Role Performed <+> 7 Other Attendee <+> 8 Case Attendee <+> 8 Role Performed [facility] IntraOp Case Times Entry 1 Patient In Room Time 12/14/19 13:36:00 Out Room Time 12/14/19 16:10:00 Anesthesia Start Time 12/14/19 13:36:00 Stop Time 12/14/19 16:10:00 Surgery / Procedure Times Start Time 12/14/19 14:19:00 Stop Time 12/14/19 16:01:00 Last Modified By: Luis Fernando Oshea RN 12/14/19 16:10:47 [facility] IntraOp Case Times Audit 12/14/19 16:10:47 Flight Engineer Instructor: [email or web address] Modifier: [id number] <+> 1 Out Room Time <+> 1 Stop Time <+> 1 Stop Time 12/14/19 14:19:43 Flight Engineer Instructor: [email or web address] Modifier: [email or web address] <+> 1 Start Time [facility] IntraOp Cautery Entry 1 Entry 2 ESU Identification Cautery Type Monopolar ESU BiPolar ESU Cautery Type Comments ID Number [id number] ID Type Hospital Number Hospital Number Cautery Settings Cut Setting 40 8 Coag Setting 40 40 Blend Setting Bipolar Setting Argon Setting Argon Escamilla ESU Grounding Pad Ground Pad Type Adult Grounding Pad Type Comment Grounding Pad Site Right thigh Grounding Pad Site Comment Grounding Pad Devon Maloney RN Applied By Grounding Pad Site Warm, dry and intact Skin Condition Before Cautery Site Skin Condition Before Comment Grounding Pad Site Unchanged Skin Condition After Cautery Site Skin Condition After Comment Last Modified By: Devon Maloney RN Byrd, Charlie D, RN 12/14/19 14:28:03 12/14/19 14:28:03 [facility] IntraOp Communication Entry 1 Communication To Family/Significant other Comment START Communication By Devon Maloney RN Date and Time 12/14/19 14:20:00 Last Modified By: Devon Maloney RN 12/14/19 14:21:00 [facility] IntraOp Communication Audit 12/14/19 14:36:59 Flight Engineer Instructor: [email or web address] Modifier: [email or web address] <+> 1 Communication By [facility] IntraOp Counts Verification Entry 1 Procedure Lumbar Fusion Posterior 3 Level, Cervical Laminectomy Posterior, Cervical Discectomy Fusion Posterior Count Info Count Type Sponge, Sharps, Miscellaneous Counts Verification Baseline/pre-procedure Sequence Count Results Not Applicable Counts Performed By Count Performed By ROSMERY YAP (Scrub) Count Performed By Devon Maloney RN (RN) Last Modified By: Devon Maloney RN 12/14/19 14:23:59 [facility] IntraOp Counts Final Entry 1 Procedure Lumbar Fusion Posterior 3 Level, Cervical Laminectomy Posterior, Cervical Discectomy Fusion Posterior Final Count Info Count Type Sponge, Sharps, Miscellaneous Counts Verification Skin Closure/end of Sequence procedure Count Results Correct, surgeon notified Counts Performed By Count Performed By Ayla Valentin ST (Scrub) Count Performed By Luis Fernando Oshea RN (RN) Last Modified By: Luis Fernando Oshea RN 12/14/19 15:40:13 [facility] IntraOp Cultures and Spec Summary Entry 1 Cultrures and Specimens Specimen Ordered: Yes Test(s) Routine/Path-Lab Requested/Final Disposition Last Modified By: Luis Fernando Oshea RN 12/14/19 15:16:13 [facility] IntraOp Departure from OR Entry 1 Integumentary Assessment Integumentary WDL Assessment WDL Transfer/Handoff Transfer to PACU Phase I Handoff Method Bedside/Face to face, Phone call Post-op Transport Stretcher/Gurney Via Patient Transport DREW LINN PA, Accompanied by JAMIE ZAPIEN CRNA Last Modified By: Devon Maloney RN 12/14/19 14:37:41 [facility] IntraOp Drains and Tubes Entry 1 Device Type Other Size 15 Fr x 49 long Drain/Tube Activity Inserted Drain/Tube Suction Bulb Drain/Tube Drainage None Device Location op site Tube Dressing Dry, Intact Condition Last Modified By: Luis Fernando Oshea RN 12/14/19 15:17:38 General Comments: inserted silicone round drain with bulb suction [facility] IntraOp Dressing and Packing Entry 1 Type Dressing Location NECK Wound Dressing Item Occlusive dressing, Skin adhesive Applied By DREW LINN PA Last Modified By: Devon Maloney RN 12/14/19 14:37:28 [facility] IntraOp Fire Risk Assessment Entry 1 Fire Info Surgical Site or 1- Yes Incision Above the Xyphoid Open O2 Source 0- No (Mask or Cannula) Available Ignition 1- Yes (ESU, Laser, Light Source) Fire Risk 2 Assessment Score Fire Score Fire Risk Yes Assessment Complete Fire Risk Devon Maloney, treating engineer Verified By Fire Risk 12/14/19 14:24:00 Assessment Verified Date/Time Fire Risk Standard Fire Yes Safety Precautions Followed Last Modified By: Devon aMloney RN 12/14/19 14:24:30 [facility] IntraOp General Case Lens Grinder 1 Case Information OR OR 10 [facility] Case Level 1 Room Verified Yes Wound Class I - Clean Specialty SN Neurosurgery Anesthesia Type General ASA Class 2 Diagnosis Preop Diagnosis CERVICAL SPOINDYLOSIS WITH MYELOPATHY Postop Same As Preop No Postop Diagnosis SEE DRS POST OP NOTES Last Modified By: Devon Maloney RN 12/14/19 14:26:30 [facility] IntraOp General Case Data Audit 12/14/19 14:37:08 Flight Engineer Instructor: [email or web address] Modifier: [email or web address] 1 <*> Preop Diagnosis CERVICAL SPOINDYLOSIS WITH MYELOPATHY 12/14/19 14:26:30 Flight Engineer Instructor: [email or web address] Modifier: [email or web address] <+> 1 ASA Class <+> 1 Postop Same As Preop <+> 1 Preop Diagnosis <+> 1 Postop Diagnosis [facility] IntraOp Implant Log Entry 1 Entry 2 Entry 3 Type Tissue Implant Implant (Synthetic) Implant (Synthetic) (Biologic) Implant Log Implant Type Tissue Implant Type Bone Implant BONE VIVIGEN FORMABLE SCR F/A [id number] SCR POLYAXAIL Identification [facility]-[id number] [facility]-[id number] Description Implant Quantity 1 1 1 Implant Site op site op site op site Implant [id number] Identification Model Number Implant Identification Serial Number Implant Identification Lot Number Implant Lifenet:Lifenet J&J:Depuy:Depuy Spine J&J:Depuy:Depuy Spine Identification Transplant Srv Business Technology Architect Name: Implant [id number] Identification Catalog Number Implant Size medium Implant Has an Yes Expiration Date Implant Expiration 11/12/20 Date Wasted Radioactive Material Time Implanted Tissue Implant Continue for Tissue Implant Documentation Tissue Identification Number Graft Prep Per Yes Business Technology Architect Instructions: Tissue Preparation Thawed Method: Reconstitution Solution: Reconstitution Solution Lot Number Reconstitution Solution Expiration Date: Thawing Solution normal saline Thawing Solution [id number] Lot Number Thawing Solution 12/24/19 Expiration Date Preparation Materials, Other Preparation Materials, Other Lot Number Preparation Materials, Other Expiration Date ROSMERY Byrd Prepared/Processed By Business Technology Architect Yes Paperwork Completed Implant Type Comment Last Modified By: Luis Fernando Oshea RN Harover, Michael, RN Harover, Michael, RN 12/14/19 15:07:18 12/14/19 15:36:48 12/14/19 15:36:48 Entry 4 Type Implant (Synthetic) Implant Log Implant Type Tissue Implant Type Implant [id number] Identification Description Implant Quantity 1 Implant Site op site Implant Identification Model Number Implant Identification Serial Number Implant Identification Lot Number Implant Identification Business Technology Architect Name: Implant Identification Catalog Number Implant Size Implant Has an Expiration Date Implant Expiration Date Wasted Radioactive Material Time Implanted Tissue Implant Continue for Tissue Implant Documentation Tissue Identification Number Graft Prep Per Business Technology Architect Instructions: Tissue Preparation Method: Reconstitution Solution: Reconstitution Solution Lot Number Reconstitution Solution Expiration Date: Thawing Solution Thawing Solution Lot Number Thawing Solution Expiration Date Preparation Materials, Other Preparation Materials, Other Lot Number Preparation Materials, Other Expiration Date Tissue Prepared/Processed By Business Technology Architect Paperwork Completed Implant Type Comment Last Modified By: Luis Fernando Oshea RN 12/14/19 15:36:48 [facility] IntraOp Implant Log Audit 12/14/19 15:36:48 Flight Engineer Instructor: [id number] Modifier: [id number] <+> 2 Implant Identification Description <+> 2 Implant Identification Business Technology Architect Name: <+> 2 Implant Site <+> 2 Implant Quantity <+> 2 Implant Identification Catalog Number <+> 2 Type <+> 3 Implant Identification Description <+> 3 Implant Identification Business Technology Architect Name: <+> 3 Implant Site <+> 3 Implant Quantity <+> 3 Implant Identification Catalog Number <+> 3 Type <+> 4 Implant Identification Description <+> 4 Implant Site <+> 4 Implant Quantity <+> 4 Type [facility] IntraOp Intraoperative Assessment Entry 1 Handoff Method Bedside/Face to face, Online nursing summary Valid History / Yes Physical in Chart Preoperative Yes Checklist Reviewed/Evaluated Allergies Reviewed Yes Patient is Latex No Sensitive Isolation Not applicable Precautions Noted Level of WDL Consciousness (WDL = Alert, Oriented to Person, Place, and Time) Skin Assessment Yes Verified Present Upon IVs Arrival to OR Last Modified By: Devon Maloney RN 12/14/19 14:28:12 [facility] IntraOp Intraoperative Equipment Entry 1 Type Equipment Equipment Equipment Gary Suction System ID Number [id number] Setting 180 Intraop Monitoring Antiembolic Devices Antiembolic Devices Sequential compression device, knee high Antiembolic Device Bilateral Location Antiembolic Device [id number] ID Number Scopes Photo/Video Documentation Last Modified By: Devon Maloney RN 12/14/19 14:28:33 [facility] IntraOp Medication Admin Entry 1 Entry 2 Entry 3 Medication/Irrigant thrombin 5000units MATRIX FLOSEAL HEMO SPNG SURGFOAM topical powder - 10ML [id number] Combo Med List Time Administered Route of TOPICAL TOPICAL TOPICAL Administration Dose Dose 5000 10 1 Unit of Measure units ml pkt Volume QS Administered By ALEX THAKUR MD-SNU OFEALEX SUGGS MD-SNU OWEN, ROBERT D, MD-SNU Procedure Irrigation Irrigant Volume In Irrigant Volume Out Last Modified By: Devon Maloney, Devon Farris, RN Devon Maloney RN 12/14/19 14:31:32 12/14/19 14:32:47 12/14/19 14:39:40 [facility] IntraOp Medication Admin Audit 12/14/19 14:39:40 Flight Engineer Instructor: [email or web address] Modifier: [email or web address] <+> 3 Medication/Irrigant <+> 3 Route of Administration <+> 3 Administered By <+> 3 Dose <+> 3 Unit of Measure 12/14/19 14:32:47 Flight Engineer Instructor: [email or web address] Modifier: [email or web address] <+> 2 Medication/Irrigant <+> 2 Route of Administration <+> 2 Administered By <+> 2 Dose <+> 2 Unit of Measure [facility] IntraOp Patient Positioning Entry 1 Procedure Lumbar Fusion Posterior 3 Level, Cervical Laminectomy Posterior, Cervical Discectomy Fusion Posterior Body Position Prone Left Arm Position Tucked and padded at side Right Arm Position Tucked and padded at side Left Leg Position Uncrossed, parallel Right Leg Position Uncrossed, parallel Feet Uncrossed Yes Pressure Points Yes Checked Positioning Devices Pad, Elbow, Pillows, Roll(s), Chest, Armstrong w/ Head Pins, Safety Strap, Thighs Positioned By DELMY TAY, NA, ALEX THAKUR MD-SNU, Devon Maloney, NAN, DREW LINN PA Position Verified Positioning Yes Verified by Anesthesia Positioning Yes Verified by Surgeon Last Modified By: Devon Maloney RN 12/14/19 14:29:01 [facility] IntraOp Sign In Entry 1 Patient, Site, Yes Procedure Identified Surgical Consent Yes Confirmed Relevant Surgical Yes Documents Available Surgical Site Yes Marked by person performing procedure Anesthesia Machine Yes Check Completed Medication Checks Yes Completed Allergies Yes Airway Difficult Yes Airway/Aspiration Risk Difficult Yes Airway/Aspiration Intervention Equipment Available Blood Loss Risk Yes Blood Loss Yes Intervention Equipment Prepared and Ready Blood Identifiers Not applicable Verified Per Policy Hypothermia Risk No Warming Measures Yes Taken Last Modified By: Devon Maloney RN 12/14/19 14:24:37 [facility] IntraOp Sign Out Entry 1 RN Confirmation Surgical Yes Procedure(s) Identified Instrument, Sponge Yes and Sharps Counts Correct/Documented Equipment Problems Yes Documented Specimen Labeled Yes Correctly Urinary Catheter N/A Documented in IView Dela Cruz Patient Yes Recovery Concerns Reviewed with Anesthesia Provider, Surgeon and RN Dela Cruz Patient Yes Management Concerns Reviewed with Anesthesia Provider, Surgeon and RN Safety Checklist Yes Elements Complete? RN Sign Out Luis Fernando Oshea RN Signature RN Sign Out 12/14/19 16:14:00 Signature Date/Time Plan of Care Outcome - Fire Risk OUTCOME STATEMENT: Goal met Patient is free from injury related to surgical fire Plan of Care Outcome - Pt Positioning OUTCOME STATEMENT: Goal met Absence of signs and symptoms of positioning injury. Plan of Care Outcome - Skin Prep OUTCOME STATEMENT: Goal met Intraoperative care is consistent with measures to prevent infection Plan of Care Outcome - Xray/Images OUTCOME STATEMENT: Goal met Absence of observable signs or symptoms of radiation injury Plan of Care Outcome - Counts OUTCOME STATEMENT: Goal met Absence of signs and symptoms of injury related to extraneous objects Last Modified By: Devon Maloney RN 12/14/19 14:37:14 [facility] IntraOp Sign Out Audit 12/14/19 16:14:13 Flight Engineer Instructor: [email or web address] Modifier: [id number] <*> RN Sign Out Signature Devon Maloney, RN 1 <+> RN Sign Out Signature Date/Time [facility] IntraOp Skin Prep Entry 1 Procedure Lumbar Fusion Posterior 3 Level, Cervical Laminectomy Posterior, Cervical Discectomy Fusion Posterior Prescribed N/A Pre-Surgical Prep Completed Prep Area NECK Intraop Prep Integumentary WDL Assessment WDL Prep Agents Chloraprep Prep by Devon Maloney, RN Hair Removal Methods Clipper/Scissors Hair Removal By ALEX THAKUR MD-SNU Last Modified By: Devon Maloney RN 12/14/19 14:30:45 [facility] IntraOp Surgical Procedures Entry 1 Entry 2 Entry 3 Procedure Lumbar Fusion Posterior Cervical Laminectomy Cervical Discectomy 3 Level Posterior Fusion Posterior Modifiers Additional (C3-5 LAMINECTOMY AND Procedure FUSION WITH AIRO) Description Primary Procedure Yes No No Primary Surgeon ALEX THAKUR MD-SNU OWEN, ROBERT D, MD-SNU OWEN, ROBERT D, MD-SNU Start 12/14/19 14:19:00 12/14/19 14:19:00 12/14/19 14:19:00 Stop 12/14/19 16:01:00 12/14/19 16:01:00 12/14/19 16:01:00 Physician States Cecum Reached Anesthesia Type General General General Specialty SN Neurosurgery SN Neurosurgery SN Neurosurgery Wound Class I - Clean I - Clean I - Clean Last Modified By: Devon Maloney RN Byrd, Charlie D, RN Byrd, Charlie D, RN 12/14/19 14:36:32 12/14/19 14:36:32 12/14/19 14:36:32 [facility] IntraOp Surgical Procedures Audit 12/14/19 16:10:57 Flight Engineer Instructor: [email or web address] Modifier: [id number] <*> Procedure Lumbar Fusion Posterior 3 Level 1 <+> Stop <+> 2 Stop <+> 3 Stop [facility] IntraOp Temp Regulation Devices Entry 1 Temp Regulation Temperature Warm blankets, Thermal Regulation Device cap, Forced Air Warming device Temperature 88177 Regulation Device Serial/Unit Number Temperature Lower body Regulation Site Temperature DELMY TAY NA Regulation Device Applied by Last Modified By: Devon Maloney RN 12/14/19 14:25:00 [facility] IntraOP Time Out Entry 1 Procedure to be Lumbar Fusion Posterior Performed 3 Level, Cervical Laminectomy Posterior Time Out Time Out Pause Time 12/14/19 14:18:00 All activity Yes suspended (unless life threatening emergency) Team Verbally Correct patient Confirms Information identity, Consent form is present and accurate, Agreement on the procedure to be done, Correct patient position, Relevant images/results properly labeled/appropriately displayed, Confirm antibiotics have been administered, Confirm the skin prep has dried, Confirm prosthesis/implant/devic e is present, Performed in location of procedure after prepped/draped Antibiotic Yes Prophylaxis Administered Or In Progress Within the Last 60 Minutes Beta Bia N/A Administered Venous Yes Thromboembolism Prophylaxis Required Anticipated Critical Events Surgeon None expected Anesthesia Provider None expected Nursing Assures Sterility of instruments, Equipment concerns or issues, Implant Availability Essential Imaging Yes Labeled and Displayed Last Modified By: Devon Maloney RN 12/14/19 14:19:41 [facility] IntraOp X-Ray and Images Entry 1 X-Ray/Imaging Type Other Fluoroscopy Type Other Site NECK [employer] Land Officer Name YEYO MEDINA Protective Devices Yes Used X-Ray and Imaging BRAINLAB AND AIRO USED Comment FOR IMAGING Last Modified By: Devon Maloney RN 12/14/19 14:29:30 Case Comments <None> Finalized By: MATHEUS ESCAMILLA Document Signatures Signed By: Luis Fernando Oshea RN 12/14/19 16:14 MATHEUS ESCAMILLA 12/16/19 13:21 MATHEUS ESCAMILLA 12/18/19 09:29 Unfinalized History Date/Time Username Reason for Unfinalizing Freetext Reason for Unfinalizing 12/16/19 13:19 [email or web address] Correct Billing 12/18/19 09:29 [email or web address] Correct Billing Electronically signed by Miki [facility] Conversion Continuous Mining Operator Cerner at 08/23/2022 5:17 PM CDT documented in this encounter Plan of Treatment Not on file documented as of this encounter Visit Diagnoses Not on filedocumented in this encounter Care Teams Chief Building Inspector Relationship Specialty Start Date End Date [facility], Provider Not In The System, [place] [address] PCP - General 09/23/22 documented as of this encounter
--- OUTSIDE RECORDS SUMMARY | 2024-11-21 15:13 | XMS_ITS | Data Portability ---
Author Organization [facility] Address [address] [place] [address] Care Team Providers Care Tar Roofer Name Role Phone MARIBEL ZAPIEN Referring Provider SANDIE MARION Referring Provider [phone] Assessment Encounter Date Assessment Date Assessment LastModified by Organization Details LastModified Time 10/07/2022 10/07/2022 CT myelogram cervical, thoracic, and lumbar spine. [facility]. 09/23/2022. Images reviewed by Dr. Thakur and myself There is haloing around the C5 screws Severe degenerative changes throughout the cervical spine without cord compression Ms. May is a 52-year-old female status post C3-4 ACDF in 2017 and C3 5 posterior cervical fusion in 2019. She returns with worsening radicular arm symptoms and dexterity and balance issues. Dr. Thakur discussed with her that her CT scan does show some haloing around the C5 screws. She has not fused at C4-5. To stabilize this she would be a candidate for removal of the C3-4 anterior hardware with a C4-C7 ACDF. Dr. Thakur discussed with her that his goal for this surgery would be to improve her radicular arm symptoms. He explained that any improvement in her posterior neck pain or headaches would be hard to predict. He encouraged her to quit smoking to reduce her risk of future pseudoarthrosis or hardware issues. She would like to proceed with surgery. We will have her see ENT for vocal cord evaluation prior to surgery. She is going to meet with our surgery coordinator today about scheduling. The patient understands and agrees with this plan. Seen by Dr. Thakur and myself. [email or web address] Not available 10/07/2022 13:02:22 01/18/2023 01/18/2023 Doing well after undergoing most recently is C4-7 anterior cervical discectomy fusion with C3-4 hardware removal. 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 She still has a lot of complaints. The bottom line here is that she looks great on exam and her x-rays look good.I told her she needs to give herself some time to recover still. I would have her come back in a couple of months with x-rays. At the time of this visit,She had not had her x-rays but is not dictating the note the x-rays were completed and look fine.I would have her do some physical therapy for gait training and arm and leg strengthening.She has had 3 major cervical operations. 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 I think Considering all the spine problems that she has and residual symptomology coupled with the fact that she has had 3 surgeries and has a labor-intensive job, I do not think she is going to be able to return to factory work. I would consider her disabled with respect to being able to return to strenuous factory work.I will see her back in 2 months with x-rays. [email or web address] Not available 01/18/2023 12:50:05 03/29/2023 03/29/2023 Nurse practition er visit X-ray cervical spine flexion and extension at [facility] completed on 03/29/2023 Dr. Thakur and I have reviewed the images personally and read the radiologist's report. Findings discussed in detail with patient. -C3-C7 spinal fusion is noted. -Fractures of the screws in C7 vertebral body are noted. -Alignment has improved in comparison to images preoperative Ms. Zhao is a 52-year-old female who presents today for follow-up after ACDF C4-C7 with plate removal at C3-C4 on 11/17/[address] Thakur. She does continue with bilateral shoulder pain, diffuse pain bilateral upper extremities, as well as bilateral hand pain with numbness and tingling. Dr. Thakur did discuss with the patient today that patient's symptoms may be result of chronic nerve damage which may or may not improve with time. She has had three falls since last visit. Of note, she does have a fractured screw at the C7 vertebral body. Due to patient's continued symptoms, we we will do further studies to assess for any nerve root impingement. Patient is in agreement with plan of care. Dr. Thakur has suggested patient undergo Cervical X-Ray AP/Lat with flexion and extension, CT without contrast, and MRI with and without contrast. Patient is in agreement with plan of care. We will follow-up with the patient after completion of studies for further plan of care. He has had an extensive conversation in the past as well as today with the patient's continued smoking use. He has advised the patient smoking significantly increases the risk of pseudoarthrosis for patient. She does verbalize understanding. Plan: Xray Cervical spine with flex/ext MRI cervical spine with/without contrast to assess nerve root impingement (fractured screw at C7) CT Cervical spine without contrast Follow-up in office after completion of imaging. Can call office if any concerns before then. [email or web address] Not available 03/29/2023 13:19:08 Plan of Treatment Reminders Order Date Submit Date Provider Last Modified By Organization Details Last Modified Time Details Appointments None record ed. Lab None record ed. Referral None record ed. Procedures None record ed. Surgeries None record ed. Imaging None record ed. Medication Orders None record ed. Patient TargetsNo targets recorded. Patient InstructionsNo instructions recorded. Reason for Referral None Reported. Results Created Date Observation Date Name Description Value Unit Range Abnormal Flag Note LastModifiedBy Organization Detail LastModifiedTime 09/25/1909/23/2022 CT, myelo gram, lumba r spine No observ ation record ed. [email or web address] [facility] Scheduling [address], [place], [address], 10/22/2022 12:05:38 09/25/19 23 09/23/2022 CT, myelo gram, thora cic spine No observ ation record ed. BARCODE [facility] Scheduling [address], [place], [address], 09/24/2022 09:34:59 10/23/19 23 09/23/2022 CT, myelo gram, cervi mahesh spine No observ ation record ed. [facility] Scheduling [address], [place], [address], 10/22/2022 12:38:54 01/19/20 23 01/18/2023 XR, cervi mahesh spine , 2 or 3 view [facility] [address] [place] [address] [place] [address] Pativerenice t Name: NASRIN torres : 97 Torey torres Orderi ng Provid er: ALEX THAKUR EXAM DATE: 2022 EXAM: XR CERVIC AL AP/LAT CLINIC AL INFORM ATION: Postop erativ e. IMAGES PROVID ED: AP, and latera l views of the cervic al spine. COMPAR PRASHANT: None. FINDIN GS AND IMPRES NATHANIEL: Spinal fusion is noted at C3-C7 level. Surgic al hardwa re is satisf actori ly placed . No eviden ce of loosen ing or infect ion is seen. Other levels are normal . Interp reted By: Dao Mancilla MD Electr onical ly Signed By: Dao Mancilla MD on 023 10:16 AM [email or web address] [facility] [address] [place] [address], [place], [address], 02/17/2023 14:42:57 03/29/20 23 03/29/2023 XR, cervi mahesh spine , 2 or 3 view [facility] [address] [place] [address] Torey t Name: NASRIN torres : Torey torres Orderi ng Provid er: ALEX OFE EXAM DATE: 2022 EXAM: XR CERVIC AL AP/LAT CLINIC AL INFORM ATION: Neck pain IMAGES PROVID ED: AP, latera l, open mouth and submen anthony views of the cervic al spine COMPAR PRASHANT: 023 FINDIN GS AND IMPRES NAHTANIEL: C3-C7 spinal fusion is noted. Fractu res of the screws in C7 verteb ral body are noted. This is a new findin g, not presen t in the previo us exam. Rest of the surgic al hardwa re is intact . Interp reted By: Dao Mancilla MD Electr onical ly Signed By: Dao Mancilla MD on 2022 10:56 AM [email or web address] [facility]iology [facility] [address] [place] [address], [phone], 04/25/2023 12:19:48 03/29/2003/29/2023 XR, cervi mahesh spine , 2 or 3 view [place] [address] [place] [address] Pativerenice t Name: NASRIN torres : 97 Torey torres Orderi ng Provid er: HERIBERTO ROJAS EXAM DATE: 2022 EXAM: XR CERVIC AL SPINE FLEX/E XT ONLY CLINIC AL INFORM ATION: Neck pain. IMAGES PROVID ED: Latera l views of the cervic al spine in flexio n and extens ion. COMPAR PRASHANT: None. FINDIN GS AND IMPRES NATHANIEL: Spinal fusion is noted at C3-C7 level. Screw fractu re is noted at C7 level. Surgic al hardwa re is satisf actori ly placed . No signif icant hardwa re moveme nt is seen in flexio n or extens ion. No instab ility is seen. Interp reted By: Dao Mancilla MD Electr onical ly Signed By: Dao Mancilla MD on 2022 12:44 PM [email or web address] [facility]iology [facility] [address] [place], [phone], 03/29/2023 16:58:54 04/28/2004/28/2023 CT, cervi mahesh spine , w/o contr ast [place] [address] [place] [address] Patien t Name: NASRIN torres : 972 Torey torres Orderi ng Provid er: HERIBERTO ROJAS EXAM DATE: 2022 EXAM: CT CERVIC AL WITHOU T CONTRA ST HISTOR Y: 52-yea r-old female with prior cervic al fusion and numbne ss in the should ers and hands. COMPAR PRASHANT: MRI of the same date Techni que: 1 mm direct axial slices were obtain ed throug h the cervic al spine. Comput er-gen erated axial, cortez l, and sagitt al recons tructi ons are provid ed for interp retati on. FINDIN GS: The patien t is status post discec thaddeus from C3-C4 throug h C6-C7, anteri or fusion from C4 throug h C7, and caddymaster ior fusion bridgi ng C3 and C5. There is beam harden ing artifa ct from the interb niko spacer s, and anteri or and caddymaster ior fusion hardwa re. There are prior rashad ctomie s at C3 and C4. The C7 screws are fractu red bilate rally. There is lucenc y adjace nt to the right C6 anteri or screw consis tent with loosen ing. There is lucenc y adjace nt to the caddymaster ior pedicl e screws at the C3 and C5 levels consis tent with loosen ing. There is exagge rated lordos is from C2 throug h C4 and mild kyphos is from C4 throug h C7. There is anteri or listhe sis of C3 on C4, C4 on C5 and C5 on C6. There is no fractu re or pathol ogic intrao sseous lesion . There is minima l anteri or margin al osteop hytic spurri ng. No parasp inous soft tissue abnorm ality is identi fied. The visual ized caddymaster ior fossa of the brain is normal in appear ance. The cranio cervic al juncti on is normal in appear ance. There are mild degene rative change s at C1-C2. C2-C3: There is a broad- based disc protru nathaniel and mild to modera te facet arthro jaelyn. There is mild centra l canal stenos is. There is modera te left and mild right neural forami nal stenos is. C3-C4: There is prior fusion with facet arthro jaelyn. There is no centra l canal stenos is. There is modera te bilate ral neural forami nal narrow ing. C4-C5: There is prior fusion with facet arthro jaelyn. There is no centra l canal stenos is. There is mild/m oderat e bilate ral neural forami nal narrow ing. C5-C6: There is prior fusion . There is facet arthro jaelyn. There is mild centra l canal stenos is. There is modera te left neural forami nal stenos is. C6-C7: There is prior fusion . There is mild centra l canal stenos is. There is no maurice neural forami nal stenos is. C7-T1: There is a mild disc bulge and facet arthro jaelyn. There is no centra l canal stenos is or neural forami nal stenos is. The visual ized thorac ic spine are essent ially normal in appear ance. IMPRES NATHANIEL: 1. There is prior discec thaddeus and fusion from C3 throug h C7. The anteri or C7 screws are fractu red and there is probab le loosen ing of the right anteri or C6 screw. There is appare nt loosen ing of the caddymaster ior pedicl e screws at C3 and C5 bilate rally. 2. There is mild to modera te neural forami nal narrow ing from C2-C3 throug h C5-C6. 3. There is mild centra l canal narrow ing at C2-C3, C5-C6 and C6-C7. Interp reted By: Sari zeng MD Electr onical ly Signed By: Sari zeng MD on 2022 12:19 PM [email or web address] [facility] Radiology [address] [place], [address], 05/24/2023 12:33:11 04/28/20 23 04/28/2023 MRI, cervi mahesh spine , w/wo contr ast [address] [address] Torey torres Name: NASRIN torres : 972 Torey torres Orderi [facility] er: HERIBERTO ROJAS EXAM DATE: 2022 EXAM: MR CERVIC AL W/WO CONTRA ST HISTOR Y: 52-yea r-old female with neck pain, and bilate ral arm numbne ss. The patien t has had prior cervic al surger y. COMPAR PRASHANT: CT scan of the same date and radiog raph dated 2022 The patien t did not requir e sedati on for this exam. A baseli ne serum creati nine with eGFR was obtain ed prior to inject ion of contra st medium due to the patien ts risk factor s for DENG. Calcul ated eGFR at time of exam was GFR=81 FINDIN GS: The patien t is status post discec thaddeus from C3-C4 throug h C6-C7, anteri or fusion from C4 throug h C7, and caddymaster ior fusion bridgi ng C3 and C5. There is parama gnetic artifa ct from the interb niko spacer s, and anteri or and caddymaster ior fusion hardwa re. There are prior rashad ctomie s at C3 and C4. There is exagge rated lordos is from C2 throug h C4 and mild kyphos is from C4 throug h C7. There is anteri or listhe sis of C3 on C4 and C4 on C5. There is no fractu re or pathol ogic intrao sseous lesion . There is minima l anteri or margin al osteop hytic spurri ng. No parasp inous soft tissue abnorm ality is identi fied. The visual ized caddymaster ior fossa of the brain is normal in appear ance. There is increa sed STIR signal in the spinal cord from C3 throug h C5. The cranio cervic al juncti on is normal in appear ance. There are mild degene rative change s at C1-C2. C2-C3: There is a broad- based disc protru nathaniel and mild to modera te facet arthro jaelyn. There is mild centra l canal stenos is. There is modera te left and mild right neural forami nal stenos is. C3-C4: There is prior fusion with facet arthro jaelyn. There is no centra l canal stenos is. There is modera te bilate ral neural forami nal narrow ing. C4-C5: There is prior fusion with facet arthro jaelyn. There is no centra l canal stenos is. There is mild/m oderat e bilate ral neural forami nal narrow ing. C5-C6: There is prior fusion . There is facet arthro jaelyn. There is mild centra l canal stenos is. There is modera te left neural forami nal stenos is. C6-C7: There is prior fusion . There is mild centra l canal stenos is. There is no maurice neural forami nal stenos is. C7-T1: There is a mild disc bulge and facet arthro jaelyn. There is no centra l canal stenos is or neural forami nal stenos is. After intrav enous admini strati on of [address] ([facility] [id number] 2), there is no abnorm al enhanc ement in the cervic al spine. The visual ized thorac ic spine are essent ially normal in appear ance. IMPRES NATHANIEL: 1. There is prior discec thaddeus and fusion from C3 throug h C7. 2. There is mild to modera te neural forami nal narrow ing from C2-C3 throug h C5-C6. 3. There is mild centra l canal narrow ing at C2-C3, C5-C6 and C6-C7. 4. There is increa sed signal in the spinal cord which may indica te myelom alacia . Interp reted By: Sari zeng MD Electr onical ly Signed By: Sari zeng MD on 2022 12:19 PM [email or web address] [facility]iology [address], [address], 05/24/2023 12:33:10 Result Notes Documentation Provider Name and Address Organization Details Recorded Time Xr, Cervical Spine, 2 Or 3 View : [address] [address] Patient Name: NASRIN MAY Patient : 1970 Patient Ordering Provider: ALEX THAKUR EXAM DATE: 01/18/2023 EXAM: XR CERVICAL AP/LAT CLINICAL INFORMATION: Postoperative. IMAGES PROVIDED: AP, and lateral views of the cervical spine. COMPARISON: None. FINDINGS AND IMPRESSION: Spinal fusion is noted at C3-C7 level. Surgical hardware is satisfactorily placed. No evidence of loosening or infection is seen. Other levels are normal. Interpreted By: Osei Mancilla MD THAKUR MD [address] [place] [address], [phone], [facility] 02/17/2023 14:42:58 Xr, Cervical Spine, 2 Or 3 View : [place] [address] Patient Name: NASRIN MYA Patient : 1970 Patient Ordering Provider: ALEX THAKUR EXAM DATE: 03/29/2023 EXAM: XR CERVICAL AP/LAT CLINICAL INFORMATION: Neck pain IMAGES PROVIDED: AP, lateral, open mouth and submental views of the cervical spine COMPARISON: 01/18/2023 FINDINGS AND IMPRESSION: C3-C7 spinal fusion is noted. Fractures of the screws in C7 vertebral body are noted. This is a new finding, not present in the previous exam. Rest of the surgical hardware is intact. Interpreted By: Osei Mancilla MD THAKUR MD [address] [place] [address], [phone], [facility] 04/25/2023 12:19:48 Xr, Cervical Spine, 2 Or 3 View : [place] [address] Patient Name: NASRIN MAY Patient : 1970 Patient Ordering Provider: HANNA APONTE EXAM DATE: 03/29/2023 EXAM: XR CERVICAL SPINE FLEX/EXT ONLY CLINICAL INFORMATION: Neck pain. IMAGES PROVIDED: Lateral views of the cervical spine in flexion and extension. COMPARISON: None. FINDINGS AND IMPRESSION: Spinal fusion is noted at C3-C7 level. Screw fracture is noted at C7 level. Surgical hardware is satisfactorily placed. No significant hardware movement is seen in flexion or extension. No instability is seen. Interpreted By: Osei Mancilla MD A APONTE, [employer] [address] [place], [phone], [facility] 03/29/2023 16:58:54 Ct, Cervical Spine, W/o Contrast : [facility] [address] [place] [address] Patient Name: NASRIN MAY Patient : 1970 Patient Ordering Provider: HANNA APONTE EXAM DATE: 04/28/2023 EXAM: CT CERVICAL WITHOUT CONTRAST HISTORY: 52-year-old female with prior cervical fusion and numbness in the shoulders and hands. COMPARISON: MRI of the same date Technique: 1 mm direct axial slices were obtained through the cervical spine. Computer-generated axial, coronal, and sagittal reconstructions are provided for interpretation. FINDINGS: The patient is status post discectomy from C3-C4 through C6-C7, anterior fusion from C4 through C7, and posterior fusion bridging C3 and C5. There is beam hardening artifact from the interbody spacers, and anterior and posterior fusion hardware. There are prior laminectomies at C3 and C4. The C7 screws are fractured bilaterally. There is lucency adjacent to the right C6 anterior screw consistent with loosening. There is lucency adjacent to the posterior pedicle screws at the C3 and C5 levels consistent with loosening. There is exaggerated lordosis from C2 through C4 and mild kyphosis from C4 through C7. There is anterior listhesis of C3 on C4, C4 on C5 and C5 on C6. There is no fracture or pathologic intraosseous lesion. There is minimal anterior marginal osteophytic spurring. No paraspinous soft tissue abnormality is identified. The visualized posterior fossa of the brain is normal in appearance. The craniocervical junction is normal in appearance. There are mild degenerative changes at C1-C2. C2-C3: There is a broad-based disc protrusion and mild to moderate facet arthropathy. There is mild central canal stenosis. There is moderate left and mild right neural foraminal stenosis. C3-C4: There is prior fusion with facet arthropathy. There is no central canal stenosis. There is moderate bilateral neural foraminal narrowing. C4-C5: There is prior fusion with facet arthropathy. There is no central canal stenosis. There is mild/moderate bilateral neural foraminal narrowing. C5-C6: There is prior fusion. There is facet arthropathy. There is mild central canal stenosis. There is moderate left neural foraminal stenosis. C6-C7: There is prior fusion. There is mild central canal stenosis. There is no maurice neural foraminal stenosis. C7-T1: There is a mild disc bulge and facet arthropathy. There is no central canal stenosis or neural foraminal stenosis. The visualized thoracic spine are essentially normal in appearance. IMPRESSION: 1. There is prior discectomy and fusion from C3 through C7. The anterior C7 screws are fractured and there is probable loosening of the right anterior C6 screw. There is apparent loosening of the posterior pedicle screws at C3 and C5 bilaterally. 2. There is mild to moderate neural foraminal narrowing from C2-C3 through C5-C6. 3. There is mild central canal narrowing at C2-C3, C5-C6 and C6-C7. Interpreted By: Barney Olson MD THAKUR MD [address] [place] [address], [phone] 05/24/2023 12:33:11 Mri, Cervical Spine, W/wo Contrast : [address] [address] Patient Name: NASRIN MAY Patient : 1970 Patient Ordering Provider: HANNA APONTE EXAM DATE: 04/28/2023 EXAM: MR CERVICAL W/WO CONTRAST HISTORY: 52-year-old female with neck pain, and bilateral arm numbness. The patient has had prior cervical surgery. COMPARISON: CT scan of the same date and radiograph dated 03/29/2023 The patient did not require sedation for this exam. A baseline serum creatinine with eGFR was obtained prior to injection of contrast medium due to the patients risk factors for DENG. Calculated eGFR at time of exam was GFR=81 FINDINGS: The patient is status post discectomy from C3-C4 through C6-C7, anterior fusion from C4 through C7, and posterior fusion bridging C3 and C5. There is paramagnetic artifact from the interbody spacers, and anterior and posterior fusion hardware. There are prior laminectomies at C3 and C4. There is exaggerated lordosis from C2 through C4 and mild kyphosis from C4 through C7. There is anterior listhesis of C3 on C4 and C4 on C5. There is no fracture or pathologic intraosseous lesion. There is minimal anterior marginal osteophytic spurring. No paraspinous soft tissue abnormality is identified. The visualized posterior fossa of the brain is normal in appearance. There is increased STIR signal in the spinal cord from C3 through C5. The craniocervical junction is normal in appearance. There are mild degenerative changes at C1-C2. C2-C3: There is a broad-based disc protrusion and mild to moderate facet arthropathy. There is mild central canal stenosis. There is moderate left and mild right neural foraminal stenosis. C3-C4: There is prior fusion with facet arthropathy. There is no central canal stenosis. There is moderate bilateral neural foraminal narrowing. C4-C5: There is prior fusion with facet arthropathy. There is no central canal stenosis. There is mild/moderate bilateral neural foraminal narrowing. C5-C6: There is prior fusion. There is facet arthropathy. There is mild central canal stenosis. There is moderate left neural foraminal stenosis. C6-C7: There is prior fusion. There is mild central canal stenosis. There is no maurice neural foraminal stenosis. C7-T1: There is a mild disc bulge and facet arthropathy. There is no central canal stenosis or neural foraminal stenosis. After intravenous administration of 10 mL Gadavist ([facility] [id number]), there is no abnormal enhancement in the cervical spine. The visualized thoracic spine are essentially normal in appearance. IMPRESSION: 1. There is prior discectomy and fusion from C3 through C7. 2. There is mild to moderate neural foraminal narrowing from C2-C3 through C5-C6. 3. There is mild central canal narrowing at C2-C3, C5-C6 and C6-C7. 4. There is increased signal in the spinal cord which may indicate myelomalacia. Interpreted By: Barney Olson MD THAKUR MD [address] [place] [address], [phone], [facility] 05/24/2023 12:33:10 Procedures Surgical History Date Name Laterality Status Provider Name and Address Organization Details Recorded Time 11/04/19 23 Nasolaryngoscopy completed DEBORAH PALMER MD [address] [place], [phone], [facility] 11/03/2022 12:18:10 12/14/19 20 ARTHRODESIS, CERVICAL, POSTERIOR TECHNIQUE (SURG) completed Ana Luna [facility] 12/19/2019 16:17:03 ANTERIOR CERVICAL DISCECTOMY AND FUSION, LEVEL SPECIFIED, WITH HARDWARE (SURG) completed Virginia Delacruz [facility] [facility] 05/10/2017 10:49:17 Imaging Results None recorded. Procedure Notes None recorded. Medical Equipment None Reported. Allergies No known drug allergies Medications Name Sig Start Date Stop Date Status Note LastModified by Organization Details LastModified Time quetiapine 25 mg tablet active Not Available Not Available Not Available cyclobenzap rine 10 mg tablet ONE (1) (ONE) TABLET THREE (3) TIMES DAILY, NEEDED FOR MUSCLE SPASMS active Not Available Not Available No t Available nystatin 100,000 unit/mL oral suspension TAKE FIVE (5) MILLILITE R BY MOUTH FOUR TIMES DAILY, SWISH, SWALLOW active Not Available Not Available No t Available prednisone 10 mg tablet TAKE THREE (3) TABLETS BY MOUTH EVERY DAY FOR 3 DAYS THEN TAKE 2 TABLETS EVERY DAY FOR 3 DAYS THEN TAKE 1 TABLET EVERY DAY FOR 3 DAYS 11/03 completed Not Available Not Available Not Available venlafaxine ER 75 mg capsule,ext ended release 24 hr active Not Available Not Available Not Available gabapentin 600 mg tablet TAKE 1 TABLET BY MOUTH THREE (3) TIMES DAILY 11/03 completed Not Available Not Available Not Available doxycycline hyclate 100 mg capsule active Not Available Not Available N ot Available albuterol sulfate 2.5 mg/3 mL (0.083 %) solution for nebulizatio n active Not Available Not Available Not Available tizanidine 4 mg tablet active Not Available Not Available Not Available benzonatate 200 mg capsule TAKE ONE (1) CAPSULE (ORAL) EVERY FOUR (4) TO SIX (6) HOURS FOR 7 DAYS active Not Available Not Available No t Available meloxicam 15 mg tablet TAKE 1 TABLET BY MOUTH EVERY DAY active Not Available Not Available No t Available Medrol (Nasir) 4 mg tablets in a dose pack as directed 2022 active Not Available Not Available Not Avai lable prednisone 20 mg tablet TAKE 1 TABLET BY MOUTH TWICE DAILY active Not Available Not Available No t Available atenolol 25 mg tablet TAKE ONE (1) TABLET BY MOUTH DAILY active Not Available Not Available No t Available venlafaxine ER 150 mg capsule,ext ended release 24 hr active Not Available Not Available Not Available hydroxyzine pamoate 50 mg capsule active Not Available Not Available N ot Available levothyroxi ne 25 mcg tablet TAKE ONE (1) TABLET BY MOUTH DAILY active Not Available Not Available No t Available hydrocortis one acetate 25 mg rectal suppository INSERT ONE (1) SUPPOSITO RY INTO THE RECTUM TWO TIMES DAILY active Not Available Not Available No t Available meloxicam 7.5 mg tablet TAKE ONE (1) TABLET EVERY DAY BY ORAL ROUTE DIRECTED FOR 14 DAYS. active Not Available Not Available No t Available gabapentin 800 mg tablet TAKE 1 TABLET BY MOUTH THREE (3) TIMES DAILY active Not Available Not Available No t Available benzonatate 100 mg capsule active Not Available Not Available Not Available pantoprazol e 40 mg tablet,mary yed release active Not Available Not Available Not Available mirtazapine 30 mg tablet TAKE 1 TABLET BY MOUTH BEDTIME active Not Available Not Available No t Available hydrochloro thiazide 12.5 mg capsule TAKE 1 CAPSULE BY MOUTH DAILY active Not Available Not Available No t Available diclofenac sodium 25 mg tablet,mary yed release active Not Available Not Available Not Available gabapentin 300 mg capsule Take 1 capsule 3 times a day by oral route. 11/03 completed Not Available Not Available Not Available buspirone 7.5 mg tablet active Not Available Not Available Not Available omeprazole 20 mg capsule,del ayed release TAKE 1 CAPSULE BY MOUTH DAILY active Not Available Not Available No t Available diclofenac sodium 75 mg tablet,mary yed release TAKE 1 TABLET BY MOUTH TWICE DAILY NEEDED active Not Available Not Available No t Available lisinopril 5 mg tablet TAKE 1 TABLET BY MOUTH EVERY DAY active Not Available Not Available No t Available hydrochloro thiazide 25 mg tablet 11/03 completed Not Available Not Available Not Available diclofenac sodium 50 mg tablet,mary yed release TAKE ONE (1) TABLET TWICE A DAY BY ORAL ROUTE active Not Available Not Available No t Available ibuprofen 600 mg tablet Take 1 tablet 3 times a day by oral route as needed. 2017 active Not Available Not Available Not Avai lable levofloxaci n 750 mg tablet 11/03 completed Not Available Not Available Not Available Cresson 7.5 mg-325 mg tablet Take 1 tablet every 6 hours by oral route as needed. 11/03 completed Not Available Not Available Not Available Percocet 5 mg-325 mg tablet Take 1 tablet every 6 hours by oral route as needed. 2022 active Not Available Not Available Not Avai lable ondansetron 4 mg disintegrat ing tablet active Not Available Not Available N ot Available fluoxetine 20 mg capsule TAKE 1 CAPSULE BY MOUTH DAILY active Not Available Not Available No t Available medroxyprog esterone 150 mg/mL intramuscul ar suspension INJECT ONE (1) ML INTRAMUSC ULARLY EVERY 12 WEEKS active Not Available Not Available No t Available doxycycline hyclate 100 mg tablet TAKE 1 TABLET BY MOUTH TWICE DAILY 11/03 completed Not Available Not Available Not Available diazepam 5 mg tablet Take 1 tablet twice a day by oral route as needed. active Not Available Not Available No t Available amoxicillin 875 mg-potassiu m clavulanate 125 mg tablet TAKE ONE (1) TABLET (ORAL) TWO (2) TIMES PER DAY FOR 10 DAYS 11/03 completed Not Available Not Available Not Available escitalopra m 10 mg tablet Take 1 tablet every day by oral route. active Not Available Not Available No t Available cyclobenzap rine 5 mg tablet Take 1 tablet 3 times a day by oral route as needed. 2020 active Not Available Not Available Not Avai lable pregabalin 100 mg capsule active Not Available Not Available Not Available pregabalin 150 mg capsule TAKE ONE (1) CAPSULE (150 MG TOTAL) BY MOUTH THREE (3) (THREE) TIMES DAILY. MAX DAILY AMOUNT: 450 MG active Not Available Not Available No t Available hydrochloro thiazide active Not Available Not Available Not Available quetiapine 50 mg tablet 11/03 completed Not Available Not Available Not Available hydrochloro thiazide 12.5 mg tablet TAKE 1 TABLET BY MOUTH EVERY DAY 11/03 completed Not Available Not Available Not Available Bystolic 5 mg tablet active Not Available Not Available No t Available Vitals Date Recorded Body height Body mass index (BMI) Body weight Heart rate Systolic And Diastolic Provider Name and Address Organization Details Last Updated DateTime 10/07/2022 160.02 cm 28.3 kg/m2 99674.78 g 92 /min 163/95 mm[Hg] Bertha Kapil [facility] 10/07/2022 10:33:26 Date Recorded Body height Body mass index (BMI) Body weight Heart rate Systolic And Diastolic Provider Name and Address Organization Details Last Updated DateTime 11/03/2022 160.02 cm 28.3 kg/m2 27836.78 g 78 /min 129/87 mm[Hg] Ramiro Adame [facility] 11/03/2022 10:02:41 Date Recorded Body height Body mass index (BMI) Body weight Systolic And Diastolic Provider Name and Address Organization Details Last Updated DateTime 01/18/2023 160.02 cm 28.3 kg/m2 36730.78 g 122/82 mm[Hg] Ana Kleinholz [facility] 01/18/2023 08:32:21 Date Recorded Body height Body mass index (BMI) Body weight Systolic And Diastolic Provider Name and Address Organization Details Last Updated DateTime 03/29/2023 160.02 cm 28.3 kg/m2 26176.78 g 132/82 mm[Hg] [facility] 10:59:20 Social History Question Answer Notes LastModified by BTIGizat ion Details LastModified Time Tobacco Smoking Status Current [facility]/08[facility] 09:54:04 What Was The Date Of Your Most Recent Tobacco Screening? 07/21/2017 Information n ot available 06/26/2019 How Much Tobacco Do You Smoke? 1 PPD Information not available 03/08/2017 How Many Years Have You Smoked Tobacco? 25 Information not available 03/08/2017 Sex: Unknown Functional Status None recorded. Mental Status None recorded. Family History Nothing Reported. Medical History Condition Response Sleep Apnea Y Hypertension Y Gynecological HistoryNo gynecological history recorded. Obstetrics History GPAL:G 0 P 0 0 0 0 Past Encounters Encounter ID Performer Location Encounter Start Date Encounter Closed Date Diagnosis/Indication Diagnosis SNOMED-CT Code Diagnosis ICD10 Code Diagnosis Note [id number] ALEX THAKUR MD [facility] [address] [place] [address] 03/08/2017 09:49:01 03/08/2017 11:45:17 Cervical spondylosis with myelopathy 09404392 M47.12 [id number] ALEX THAKUR MD [facility] [address] [place] [address] 05/10/2017 10:26:02 05/10/2017 11:14:11 Cervical spondylosis with myelopathy 34195199 M47.12 [id number] ALEX THAKUR MD [facility] [address] [place] [address] 07/21/2017 10:14:46 07/21/2017 10:49:17 Cervical spondylosis with myelopathy 00440786 M47.12 [id number] ALEX THAKUR MD [facility] [address] [place] [address] 12/11/2019 13:08:11 12/12/2019 14:43:37 Cervical spondylosis with myelopathy 79107587 M47.12 [id number] ALEX THAKUR MD SURGERY SCHEDULE [address] [place] [address] 12/14/2019 15:31:58 12/20/2019 13:16:23 [id number] ALEX THAKUR MD [facility] [address] [place] [address] 12/26/2019 10:33:12 12/26/2019 14:50:53 [id number] ALEX THAKUR MD [facility] [address] [place] [address] 01/17/2020 13:53:55 01/18/2020 11:19:00 Postoperative visit [id number] Z09 [id number] ALEX THAKUR MD [facility] [address] [place] [address] 03/27/2020 09:51:28 03/31/2020 09:31:01 Spinal stenosis in cervical region 94617446 M48.02 [id number] DREW LINN PA-C [facility] [address] [place] [address] 06/09/2021 14:11:54 06/16/2021 09:04:54 Cervical radiculopathy 35098467 M54.12 [id number] KONRAD HARLEY, MIX HOUSE TENDER [facility]G [facility] [address] [place] [address] 08/31/2022 10:38:52 09/01/2022 05:02:20 Cervical radiculopathy 03049886 M54.12 [id number] DREW LINN PA-C [facility] [address] [place] [address] 10/07/2022 10:24:41 10/08/2022 11:46:30 Cervical spondylosis 441668519 M47.892 [id number] DEBORAH PALMER MD ENT [address] [place] [address] 11/03/2022 09:21:32 11/03/2022 12:34:20 Chronic hoarseness 8329751154 105 R49.0 Scheduled for ACDF on November 17. Previous surgery went through the right side. Nasolaryng oscopy performed, both vocal folds moving well indicating that both recurrent laryngeal nerves are intact.. Edema secondary to smoking. Should be able to access the spine from either side Perforatio n of nasal septum 45574545 J34.89 Appears secondary to history of intranasal drug use. Visualized on endoscopy. Recommend sinus rinses daily Chronic rhinitis 9769930 6 J31.0 [id number] ALEX THAKUR MD SURGERY SCHEDULE [address] [place] [address] 12/03/2022 07:54:56 12/14/2022 09:39:02 [id number] ALEX THAKUR MD [facility] [address] [place] [address] 01/18/2023 08:22:53 01/19/2023 04:44:57 Cervical spondylosis 351964687 M47.892 [id number] HANNA APONTE, MIX HOUSE TENDER [facility]G [facility] [address] [place] [address] 03/29/2023 10:52:01 03/30/2023 05:28:18 Cervical spondylosis 372053051 M47.812 Health Concerns Section Related Observation LastModified by Organization Detai ls LastModified Time None Recorded Concern Status LastModified by Organization Details LastModified Time None Recorded Advance Directives Directive None Recorded Payers Insurance Date Sequence Insurance Name Policy Number Policy Rodriguez Covered Member ID Rodriguez Member ID Guarantor Name 04/29/2023 2 [facility] [id number] Nasrin May [id number] Nasrin May 07/02/2024 PAYMENT PLAN Nasrin May 06/08/[address] [facility] [id number] Nasrin May [id number] Nasrin May 04/29/2023 1 [facility]PP[place] [id number] Nasrin May [id number] Nasrin May Notes Date Note Type Note Provider Name and Address Organization Details Recorded Time 3 text/html Ms. May is status post C3-4 ACDF in April 2017 and C3-5 posterior cervical fusion in December 2019 both of these surgeries were performed for myelopathy. She returns today to follow-up on a CT myelogram. She reports gradual worsening in her cervical radiculopathy. She has numbness in her hands bilaterally. She has pain that radiates down her bilateral upper extremities and into her thumbs. she has posterior neck pain associated with headaches. She feels her dexterity is worsening. She also feels that her balance has worsened. She was recently in physical therapy but was released because the therapist had nothing else to offer. DREW LINN PA-C [address] [place] [address], [phone], [facility] 10/07/2022 13:03:20 3 text/html Chief complaint: eval vocal cordTiming: about 2 yearsDuration: constantLocation:Severity: moderateQuality: raspy voiceContext: Hx of ACDFModifying factors: continues to smokeAssoc signs and symptoms: persistent hoarseness, dry mouth/throat, no dysphagia, no sore throat, occasional foreign body sensation DEBORAH PALMER MD [address] [place] [address], [phone], [facility] 11/03/2022 12:19:17 3 text/html I saw Ms. May. I performed a C3-4 anterior cervical discectomy fusionOn April 08, 2017. I performed a C3-5 laminectomy with posterior lateral fusion on December 14, 2019. I placed lateral mass screws. Overall she did fairly well over the years. She came back withMyeloradiculopathy symptoms. 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 She developed a significant Kyphotic deformity and had foraminal greater than canal stenosis. I performed a C4-7 anterior cervical discectomy fusion on November 17, 2022.Postop CT scan look great. Her postoperative course was uncomplicated.She states that her neck pain is better. Her balance is not any better. 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 It sounds like she does a lot of looking up and down bending and twisting and heavy lifting and a lot of repetitive movements. She does not think she is good to be able to return to work. ALEX THAKUR MD [address] [place], [address], [facility] 01/18/2023 12:50:25 3 text/html Ms. Zhao is a 52-year-old female who presents today for follow-up after ACDF C4-C7 with plate removal at C3-C4 on 11/17/[address] Thakur.Surgical history:ACDF C3-C4 04/08/2017 Dr. Thakur, C3-C5 laminectomy with lateral mass arthrodesis 12/14/[address] Thakur Patient is following up from surgery on 11/17/2022. She reports that she is continuing to have pain from bilateral shoulders, with diffuse throbbing pain bilateral upper extremities and bilateral hands/fingers with numbness and tingling. She does feel she got some relief of pain to bilateral arms after surgery, however, other symptoms have not changed. She also reports to be having continued balance issues. She has had 3 falls since last surgery. She denies any injury with falls. She is currently using a walker for ambulation. No changes in bowel or bladder habits, no saddle anesthesia. HANNA APONTE, MIX HOUSE TENDER [address] [place], [address], [facility] 03/29/2023 13:19:23 OBGyn Episode No OBEpisode recorded.
--- OUTSIDE RECORDS SUMMARY | 2024-11-21 15:13 | XMS_ITS | Encounter Summary ---
Author Organization [employer] ([place], [place], [place], [place]) Address [address] [place] [address] Care Team Providers Care Shovel Operator Name Role Phone [facility], Provider Not In The System Primary Care Provider Unavailable Encounter Details Date Type Department Care Team (Late st Contact Info) Description 12/14/2019 Transcribed Document [facility] Family Medicine [address] [place] [address] ProviderFer MD [address] [place] [address] Social History Tobacco Use Types Packs/Day Years [...] Conversion Note - Historical ProviderMD - 12/14/2019 5:33 PM CDT Meds to Bed Enrollment Entered On: 12/17/2019 7:29 EDT Performed On: 12/14/2019 17:33 EDT by Jules De Santiago SOFTWARE TEAM LEADER LEAD Meds to Bed Enrollment Patient Enrollment Decision: : Yes/enroll in meds to bed program Jules De Santiago PHARMACY TECH LEAD - 12/17/2019 7:29 EDT documented in this encounter Plan of Treatment Not on file documented as of this encounter Visit Diagnoses Not on filedocumented in this encounter Care Teams Shovel Operator Relationship Specialty Start Date End Date Olegario, Provider Not In The System, [place] [address] PCP - General 09/23/22 documented as of this encounter
--- OUTSIDE RECORDS SUMMARY | 2024-11-21 15:13 | XMS_ITS | Encounter Summary ---
Author Organization [employer] ([place], [place], [place], [place]) Address [address] [place] [address] Care Team Providers Care Technical Agronomist Name Role Phone [facility], Provider Not In The System Primary Care Provider Unavailable Encounter Details Date Type Department Care Team (Late st Contact Info) Description 12/17/2019 Transcribed Document [facility] [place] [facility] [address] [place] [address] ProviderFer MD [address] [place] [address] Social History Tobacco Use Types Packs/Day Years Used Date Smoking Tobacco: Never Assessed Comments Unknown Sex and Gender Information Value Date Recorded Sex Assigned at Female 11/03/2021 8:12 PM CDT Legal Sex Female 8:12 PM CDT Gender Identity Female 11/03/2021 8:12 PM CDT Sexual Orientation Not on file documented as of this encounter Miscellaneous Notes * Cerner Conversion Note - Historical ProviderMD - 12/17/2019 1:43 PM CDT Initial Discharge Planning Entered On: 12/17/2019 13:49 EDT Performed On: 12/17/2019 13:43 EDT by MEGAN ROBLERO RN-Materials And Corrosion Engineer Initial Assessment I Previously Documented Living Environment : No qualifying data available. Living Situation : Home Patient Lives With : Alone Is the Patient a Caregiver at Home? : No Emergency Contact #1 : Jenelle Agustin Emergency Contact #1 Emergency Contact #1 Relationship : mother Emergency Contact #2 : n Emergency Contact #2 Phone Number : n Emergency Contact #2 Relationship : n Enter Doctors Name : DEBORAH GUARDADO (REF), -[facility] Does Patient have PCP Listed? : Yes MEGAN ROBLERO RN-Materials And Corrosion Engineer - 12/17/2019 13:43 EDT Initial Assessment II Sensory and Motor Deficits : None Current Home Treatments and Equipment : Shower chair, Walker Does the Patient have a Floor to SNF Benefit? : No MEGAN ROBLERO RN-Materials And Corrosion Engineer - 12/17/2019 13:43 EDT Discharge Needs I Anticipated Discharge Date : 12/17/2019 EDT Anticipated Discharge To, CM : Home with family care Current Home Treatment/Equipment : Current Home Treatment/Equipment No qualifying data available. Post Acute/Home Treatments : None Documentation Status Complete : Yes MEGAN ROBLERO RN-Materials And Corrosion Engineer - 12/17/2019 13:43 EDT Discharge Needs II Professional Skilled Services : Professional Skilled Services No qualifying data available. Services and Community Resources : Occupational Therapy Needs Assistance with Transportation : No Discharge Options Discussed with Patient : Outpatient services MEGAN ROBLERO RN-Materials And Corrosion Engineer - 12/17/2019 13:43 EDT Narrative Note Narrative Note : 49yo female pt s/p C3-5 lami. Pt ambulating 410ft with PT. Met with pt at bedside this am to discuss DCP. Pt lives alone, but will dc to her mom's home in [place]. She has DME at home. Pt agreed to for OT as she has severe myelopathy in [facility]. Neither [facility] in [place] county is able to accept her due to staffing issues not in network with her insurance. She is agreeable to outpatient OT. No OT services at [facility]. This has been arranged at [facility], referral sent and scheduled 1st appt for 12/19/2019 @ 1200. No other CM needs identified. MEGAN ROBLERO RN-Materials And Corrosion Engineer - 12/17/2019 13:43 EDT Electronically signed by Danie Livingston Conversion Solid Waste Facility Operator Cerner at 08/23/2022 5:38 PM CDT documented in this encounter Plan of Treatment Not on file documented as of this encounter Visit Diagnoses Not on filedocumented in this encounter Care Teams Technical Agronomist Relationship Specialty Start Date End Date Danie, Provider Not In The System, [place] [address] PCP - General 09/23/22 documented as of this encounter
--- OUTSIDE RECORDS SUMMARY | 2024-11-21 15:13 | XMS_ITS | Continuity of Care Document ---
Author Organization [place] - [facility] [place], [facility] Address [address] [place] [address] [place] [address] Care Team Providers Care Radio Station Engineer Name Role Phone MARY MORRIS Primary Care Provider Assessment No assessment recorded. Plan of Treatment Reminders Order Date Submit Date Provider Last Modified By Organization Details Last Modified Time Details Appointments ORT EST 15 2024 10:45A M TOO SMITH, DO Not available Not available Not available Lab None recorded. Referral None recorded. Procedures None recorded. Surgeries None recorded. Imaging XR, knee 2024 025 [facility], [address] [place] [address] [place], [address], 10/29/2024 12:52:39 Medication Orders Kenalog 10 mg/mL suspensio n for injection 2024 [facility] [place] [address] Pharmacy, [facility] [address] [place], [place], [address], 10/29/2024 12:52:39 bupivacai ne HCl 0.5 % (5 mg/mL) injection solution 20[address] [facility] [place] [address] Pharmacy, [facility] [address] [place], [place], [address], 10/29/2024 12:52:39 Patient TargetsNo targets recorded. Patient InstructionsNo instructions recorded. Reason for Referral None Reported. Results Created Date Observation Date Name Description Value Unit Range Abnormal Flag Note LastModifiedBy Organization Detail LastModifiedTime 10/30/19 25 XR, knee No observ ation record ed. JONY [facility] [address] [facility] [address] , [place], [address], 10/29/2024 10:05:26 Result Notes None recorded. Medical Equipment None Reported. Allergies No known drug allergies Medications Name Sig Start Date Stop Date Status Note LastModified by Organization Details LastModified Time cyclobenzap rine 10 mg tablet TAKE 1 TABLET BY MOUTH THREE (3) TIMES DAILY NEEDED FOR MUSCLE PAIN active Not Available Not Available No t Available amoxicillin 500 mg capsule TAKE 1 CAPSULE BY MOUTH TWICE DAILY 10/29 completed Not Available Not Available Not Available buspirone 5 mg tablet TAKE 1 TABLET BY MOUTH TWICE DAILY active Not Available Not Available No t Available nystatin 100,000 unit/mL oral suspension SWISH AND SWALLOW 5ML BY MOUTH FOUR (4) TIMES DAILY active Not Available Not Available No t Available prednisone 10 mg tablet TAKE THREE (3) TABLETS BY MOUTH DAILY X THREE (3) DAYS,THEN TAKE 2 TABLETS BY MOUTH DAILY X THREE (3) DAYS ,THEN TAKE 1 TABLET BY MOUTH DAILY X THREE (3) DAYS 10/29 completed Not Available Not Available Not Available gabapentin 600 mg tablet TAKE 1 TABLET BY MOUTH THREE (3) TIMES DAILY active Not Available Not Available No t Available doxycycline hyclate 100 mg capsule TAKE 1 CAPSULE BY MOUTH TWICE DAILY 10/29 completed Not Available Not Available Not Available albuterol sulfate 2.5 mg/3 mL (0.083 %) solution for nebulizatio n INHALE ONE (1) VIAL VIA VIA NEBULIZER FOUR (4) TIMES PER DAY active Not Available Not Available No t Available benzonatate 200 mg capsule TAKE 1 CAPSULE BY MOUTH TWICE DAILY active Not Available Not Available No t Available hydrocodone 5 mg-acetamin ophen 325 mg tablet TAKE 1 TABLET BY MOUTH EVERY EIGHT (8) HOURS active Not Available Not Available No t Available meloxicam 15 mg tablet TAKE ONE (1) TABLET BY MOUTH EVERY DAY active Not Available Not Available No t Available ondansetron HCl 4 mg tablet TAKE 1 TABLET BY MOUTH THREE TIMES DAILY, NEEDED active Not Available Not Available No t Available bupivacaine HCl 0.5 % (5 mg/mL) injection solution Take 10 mg by injection route. 2024 active Not Available Not Available Not Avai lable prednisone 20 mg tablet TAKE 1 TABLET BY MOUTH TWICE DAILY 10/29 completed Not Available Not Available Not Available atenolol 25 mg tablet TAKE 1 TABLET BY MOUTH EVERY DAY active Not Available Not Available No t Available allopurinol 100 mg tablet TAKE 1 TABLET BY MOUTH EVERY DAY START AFTER COMPLETIO N OF THE PREDNISON E 10/29 completed Not Available Not Available Not Available sulfamethox azole 800 mg-trimetho prim 160 mg tablet TAKE ONE (1) TABLET EVERY 12 HOURS BY ORAL ROUTE. 10/29 completed Not Available Not Available Not Available levothyroxi ne 25 mcg tablet TAKE 1 TABLET BY MOUTH EVERY DAY active Not Available Not Available No t Available gabapentin 800 mg tablet TAKE ONE (1) TABLET BY MOUTH THREE (3) TIMES DAILY active Not Available Not Available No t Available Kenalog 10 mg/mL suspension for injection Take 20 mg by injection route. 2024 active Not Available Not Available Not Avai lable mirtazapine 30 mg tablet TAKE 1 TABLET BY MOUTH EVERY NIGHT AT BEDTIME active Not Available Not Available No t Available omeprazole 20 mg capsule,del ayed release TAKE 1 CAPSULE BY MOUTH EVERY DAY active Not Available Not Available No t Available diclofenac sodium 75 mg tablet,mary yed release TAKE 1 TABLET BY MOUTH TWICE DAILY NEEDED active Not Available Not Available No t Available lisinopril 5 mg tablet TAKE 1 TABLET BY MOUTH EVERY DAY active Not Available Not Available No t Available methylpredn isolone 4 mg tablets in a dose pack TAKE DIRECTED ON PACKAGE 10/29 completed Not Available Not Available Not Available fluoxetine 20 mg capsule TAKE 1 CAPSULE BY MOUTH EVERY DAY active Not Available Not Available No t Available medroxyprog esterone 150 mg/mL intramuscul ar suspension INJECT ONE (1) ML INTRAMUSC ULARLY EVERY 12 WEEKS active Not Available Not Available No t Available doxycycline hyclate 100 mg tablet TAKE 1 TABLET BY MOUTH TWICE DAILY active Not Available Not Available No t Available amoxicillin 500 mg-potassiu m clavulanate 125 mg tablet TAKE 1 TABLET BY MOUTH TWICE DAILY 10/29 completed Not Available Not Available Not Available Ventolin HFA 90 mcg/actuati on aerosol inhaler INHALE ONE (1) PUFF BY MOUTH FOUR (4) TIMES DAILY active Not Available Not Available No t Available rosuvastati n 5 mg tablet TAKE 1 TABLET BY MOUTH EVERY DAY active Not Available Not Available No t Available 8 Hour Pain Reliever 650 mg tablet,exte nded release TAKE 1 TABLET BY MOUTH THREE TIMES DAILY active Not Available Not Available No t Available pregabalin 150 mg capsule TAKE 1 CAPSULE BY MOUTH THREE TIMES DAILY active Not Available Not Available No t Available hydrochloro thiazide 12.5 mg tablet TAKE 1 TABLET BY MOUTH EVERY DAY active Not Available Not Available No t Available guaifenesin ER 600 mg tablet, extended release 12 hr TAKE 1 TABLET BY MOUTH TWO TIMES DAILY active Not Available Not Available No t Available baclofen 5 mg tablet TAKE 1 TABLET BY MOUTH THREE TIMES A DAY active Not Available Not Available No [...] SNOMED-CT Code Diagnosis ICD10 Code Diagnosis Note [id number] DO LORNA JOHNSON [facility] [address] [place] [id number] 10/29/2024 09:46:28 10/29/2024 10:37:04 Pain of right knee region [id number] 60483 M25.561 Osteoarthr itis of right knee joint [id number] 88530 M17.11 Edema of l ower extremity [id number] R60.0 Health Concerns Section Related Observation LastModified by Organization Detai ls LastModified Time None Recorded Concern Status LastModified by Organization Details LastModified Time None Recorded Payers Encounter Date Sequence Insurance Name Policy Number Policy Rodriguez Covered Member ID Rodriguez Member ID Guarantor Name 10/29/2024 1 [place] [employer] [place] [employer] - FFS/TRADITIO MARIO May [id number] Nasrin May Notes Date Note Type Note Provider Name and Address Organization Details Recorded Time 10/29/2024 text/html This 54 year old female patient presents in the office for ongoing pain and swelling to the right lower extremity. She reports this originally started in May and worsened over time. She was seen at [facility] in July.Per PCP note- X-ray from [facility] July 2024 normal, Recent REGINA testing was normal, US 3.07.31 negative for blood clot. Labs @ [facility]- Gout ruled out. She then had RIGHT tib/fib x-rays at [facility] on 10.03.24: Mild lower right leg subcutaneous edema without acute osseous abnormality. The patient states that the knee feels tight and painful and the right lower extremity stays swollen and at times feels that it has fever in it. There is significant size difference when compared to her left lower extremity. CHE4 TOO SMIHT, DO [address] [facility],[address], [place], [address], [facility] [place] [facility] [place] [facility] [place] 10/29/2024 12:47:29 OBGyn Episode No OBEpisode recorded.
--- OUTSIDE RECORDS SUMMARY | 2024-11-21 15:13 | XMS_ITS | Encounter Summary ---
Author Organization [employer] ([place], [place], [place], [place]) Address [address] [place] [address] Care Team Providers Care Quality Assurance Technician Name Role Phone [facility], Provider Not In The System Primary Care Provider Unavailable Encounter Details Date Type Department Care Team (Late st Contact Info) Description 12/14/2019 Transcribed Document [facility] Family Medicine [address] [place] [address] ProviderFer MD [address] [place] [address] Social History Tobacco Use Types Packs/Day Years [...] Conversion Note - Historical ProviderMD - 12/14/2019 5:51 AM CDT Admission History, Adult Entered On: 12/14/2019 17:49 EDT Performed On: 12/14/2019 18:00 EDT by JONE THAKUR RN Advance Directive Patient has Advance Directive *Q : No, patient refuses Advance Directive information JONE THAKUR RN - 12/14/2019 17:48 EDT Anesthesia/Transfusion History Family History of Anesthesia Reaction : No prior transfusion(s) Blood Transfusion Acceptable to Patient : Yes Transfusion History : Prior anesthesia without reaction Family History of Anesthesia Reaction : None JONE THAKUR RN - 12/14/2019 17:48 EDT Anticipated Discharge Needs Discharge To, Anticipated : Home Anticipated Discharge Needs at This Time : Occupational therapy, Outpatient follow-up, Physical Therapy JONE THAKUR RN - 12/14/2019 17:48 EDT Education Topics, Admission Orientation DCP GENERIC CODE Advance Directives : Verbalizes understanding Allergy Band Applied : Verbalizes understanding Assessment/Vital Signs : Verbalizes understanding Bed Control : Verbalizes understanding Call Light : Verbalizes understanding Confidentiality : Verbalizes understanding Diet/Room Service : Verbalizes understanding Fall Prevention : Verbalizes understanding Hand Hygiene : Verbalizes understanding Healthcare Provider Visit : Verbalizes understanding ID Band Applied : Verbalizes understanding Isolation Precautions : Verbalizes understanding Orientation to Room/Bathroom : Verbalizes understanding Patient Bill of Rights : Verbalizes understanding Patient Rights/Responsibilities : Verbalizes understanding Patient Safety : Verbalizes understanding Personal Privacy Code : Verbalizes understanding Rapid Response Initiated by Patient/Family : Verbalizes understanding Rounding : Verbalizes understanding Siderails use/risks : Verbalizes understanding Skin Precautions : Verbalizes understanding Smoking Policy : Verbalizes understanding Telemetry Monitoring : Verbalizes understanding Television/Phone : Verbalizes understanding Visiting Policy : Verbalizes understanding JONE THAKUR RN - 12/14/2019 17:48 EDT Functional Assessment Living Situation : Home Current Home Treatments : None JONE THAKUR RN - 12/14/2019 17:48 EDT General Info Preferred Name : Nasrin 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 Support Person/Pt Rep Name : Jenelle Agustin Support Person/Pt Rep Contact Information : Want Family/Rep/Phys Notified of Admit : No Emergency Contact #1 : Jenelle Agustin Emergency Contact #1 Emergency Contact #1 Relationship : mother Emergency Contact #2 : n Emergency Contact #2 Phone Number : n Emergency Contact #2 Relationship : n Information Obtained From : Patient Primary Language : [place] Island[place] Preferred Communication Mode : Verbal Communication Barrier : None Curriculum And Instruction Director Needed : No Objects to Sharing Info w Family : Yes Status : Patient denies JONE THAKUR RN - 12/14/2019 17:48 EDT Fall Risk Scales ABCs Fall Injury Risk Identification : Surgery ABC Fall Injury Risk : Moderate to high injury risk MENDEZ Hx Falls Immediate/Within 3 Months : No Mendez Secondary Diagnosis : No MENDEZ Use of Ambulatory Aid : Bed rest/Nurse assist MENDEZ IV Therapy or IV Access : Yes Mendez Gait/Transferring : Weak Mendez Mental Status : Oriented to own ability Mendez Fall Risk Score : 30 MENDEZ Fall Scale Risk Level : 25-45 Medium Risk Mcclure Fall Interventions : Adequate lighting, Assistive devices within reach, Bed in low position, Call device within reach, Fall prevention handout/education per facility policy, Hourly comfort/safety rounds, Non-slip footwear, Personal items within reach, Reinforced to call for assistance before getting out of bed, Room free of clutter/spills, Upper side-rails up, Wheels locked, Wires/Cords secured Fall Moderate to High Risk Interventions : Supervise toileting as indicated, Transport methods appropriate to patient Barriers to Learning : None evident Fall Risk Scale Calc Temp : 0 JONE THAKUR RN - 12/14/2019 17:48 EDT Health Histories Smoking Status : 10 or more cigarettes (1/2 pack or more)/day in last 30 days Smokeless Tobacco Status : Never Desires Tobacco Cessation Medication : No Reason for No Tobacco Cessation Medication : Refuses FDA approved medications JONE THAKUR RN - 12/14/2019 17:48 EDT Social History (As Of: 12/14/2019 17:49:49 EDT) Tobacco: Smoking Status Current every day smoker. Five or more cigarettes per day Smoking Frequency Within Last 30 Days. Use in Last 12 Months: Cigarettes. Years of Use: 20. Packs/Tins Daily: 1.5. Used Tobacco, but Quit No. Second Hand Smoke Exposure: Yes. (Last Updated: 04/01/2017 09:33:38 EST by ROMY LEWIS, RN) Alcohol: Alcohol Use History Yes. Days/Week: 4. # Drinks/Day: 3. Total Drinks/Week: 12. (Last Updated: 04/01/2017 09:34:04 EST by ROMY LEWIS, RN) Substance Abuse: Drug Use Hx: No. Use in Last 12 Months: No. (Last Updated: 04/01/2017 09:34:10 EST by ROMY LEWIS, RN) Height and Weight, Clinical Dosing Height Source : Measured Height Entry Format : Dunn Height, Feet : 0 ft(Converted to: 0 cm, 0 Inch) Height, Inches : 63.25 Inch(Converted to: 5 ft 3 Inch, 160.65 cm) Clinical Height : 160.66 cm Weight Source : Standing scale Weight Entry Format : Dunn Clinical Dosing Weight : 67.07 kg Weight, Pounds : 147 lb Weight, Ounces : 9 oz Body Surface Area (BSA) : 1.71 m2 Body Mass Index : 26 kg/m2 (HI) Hemlock Body Weight : 53 kg JONE THAKUR RN - 12/14/2019 17:48 EDT Infectious Disease History Has the patient ever been tested for COVID-19? : Yes, Patient stated results Negative Date of COVID-19 test known? : No Does patient have symptoms of COVID-19? : No COVID19 Screening : No Experiencing Infectious Disease Symptoms : No symptoms Physical contact outside [place] in the last 30 days : No Infectious Disease History : Chicken pox/Shingles Tuberculosis Symptoms : None JONE THAKUR RN - 12/14/2019 17:48 EDT Influenza Vaccine Asmt, Adult Previous Vaccines from Immunization Schedule : No qualifying data available. Influenza Immunization, Current Season : Yes JONE THAKUR RN - 12/14/2019 17:48 EDT Pneumococcal Vaccine Previous Vaccines from Immunization Schedule : No qualifying data available. Pneumonia Immunization Received : No Pneumococcal Risk Assessment < Age 65 : None JONE THAKUR RN - 12/14/2019 17:48 EDT Nutrition History Adaptive Feeding Equipment : Regular Oral Medication Administration : By mouth Eating Poorly Due to Decreased Appetite : No Unplanned Weight Loss in Past 3-6 Months : No Malnutrition Screening Tool Total(mal) : 0 Malnutrition Screening Tool Risk Level : Patient not at risk JONE THAKUR RN - 12/14/2019 17:48 EDT [place] Suicide Severity Rating Scale (C-SSRS) CSSRS Past Month Wish to be : No CSSRS Past Month Suicidal Thoughts : No CSSRS Lifetime Suicide Behavior : No Suicide Severity Rating Score : 0 Suicide Severity Rating : No Additional Care Required at this time JONE THAKUR RN - 12/14/2019 17:48 EDT Psychosocial History Do You Have a History of the Following? : Anxiety, Depression, Other: panic attacks Currently in Unsafe Situation : No JONE THAKUR RN - 12/14/2019 17:48 EDT Sleep Apnea Risk Assmt Hx of [...] Sleep Apnea Risk Level Score : 2 JONE THAKUR RN - 12/14/2019 17:48 EDT Valuables and Belongings Valuables and Belongings : Clothing Clothing : Common streetwear Clothing Disposition : Bedside JONE THAKUR RN - 12/14/2019 17:48 EDT documented in this encounter Plan of Treatment Not on file documented as of this encounter Visit Diagnoses Not on filedocumented in this encounter Care Teams Quality Assurance Technician Relationship Specialty Start Date End Date [facility], Provider Not In The System, [place] [address] PCP - General 09/23/22 documented as of this encounter
--- OUTSIDE RECORDS SUMMARY | 2024-11-21 15:13 | XMS_ITS | Encounter Summary ---
Author Organization [employer] ([place], [place], [place], [place]) Address [address] [place] [address] Care Team Providers Care Coping Machine Assembler Name Role Phone [facility], Provider Not In The System Primary Care Provider Unavailable Encounter Details Date Type Department Care Team (Late st Contact Info) Description 12/17/2019 Transcribed Document [facility] Family Medicine [address] [place] [address] ProviderFer MD [address] [place] [address] Social History Tobacco Use Types Packs/Day Years [...] Conversion Note - Historical ProviderMD - 12/17/2019 1:49 PM CDT Final Discharge Planning Entered On: 12/17/2019 13:50 EDT Performed On: 12/17/2019 13:49 EDT by MEGAN ROBLERO RN-Non Licensed Operator Final Discharge Planning Discharge Arrangements : Patient Post-Acute Information Patient Name: NASRIN MAY Gender: Female : [birth year] Age: 49 Years No Post-Acute Placement(s) Listed No Post-Acute Service(s) Listed No [place] Referral(s) Listed Important Medicare Message Reviewed With : Other: Commercial Transportation Needs : Family/Friend Follow Up Appointment Scheduled : Yes Is Patient High/Moderate Readmission Risk? : No Patient/Family Notified of Plan : Yes Is Patient Ready for Discharge? : Yes Physician Notified Patient is Ready for Discharge? : Yes Discharge To Care Management : Home/Residential/Intermediate or Self Care - MEGAN ROBLERO RN-Non Licensed Operator - 12/17/2019 13:49 EDT Electronically signed by Miki [facility] Conversion Mill Operator Cerner at 08/23/2022 5:27 PM CDT documented in this encounter Plan of Treatment Not on file documented as of this encounter Visit Diagnoses Not on filedocumented in this encounter Care Teams Coping Machine Assembler Relationship Specialty Start Date End Date [facility], Provider Not In The System, [place] [address] PCP - General 09/23/22 documented as of this encounter
--- OUTSIDE RECORDS SUMMARY | 2024-11-21 15:13 | XMS_ITS | Encounter Summary ---
Author Organization [employer] ([place], [place], [place], [place]) Address [address] [place] [address] Care Team Providers Care Supervisor Road Administrator Name Role Phone [facility], Provider Not In The System Primary Care Provider Unavailable Encounter Details Date Type Department Care Team (Late st Contact Info) Description 12/16/2019 Transcribed Document [facility] Neurology - [facility] [address] [address] Alex Thakur Jr., MD [facility] [place] [address] Social History Tobacco Use Types Packs/Day Years Used Date Smoking Tobacco: Never Assessed Comments Unknown Sex and Gender Information Value Date Recorded Sex Assigned at Female 11/03/2021 8:12 PM CDT Legal Sex Female 8:12 PM CDT Gender Identity Female 11/03/2021 8:12 PM CDT Sexual Orientation Not on file documented as of this encounter Miscellaneous Notes * Cerner Conversion Note - Alex Thakur Jr., MD - 12/16/2019 11:28 AM EDT Patient: NASRIN MAY Age: 49 years Sex: Female : 1970 Associated Diagnoses: None Author: ALEX THAKUR MD-SNU af vss 4+/5-5/5 feels like moving arms and hands better gait stronger c/d/i odalys seronsanguinous pain better overall dc drain today p.t. pain control dc home tomorrow is goal documented in this encounter Plan of Treatment Not on file documented as of this encounter Visit Diagnoses Not on filedocumented in this encounter Care Teams Supervisor Road Administrator Relationship Specialty Start Date End Date [facility], Provider Not In The System, [place] [address] PCP - General 09/23/22 documented as of this encounter
--- OUTSIDE RECORDS SUMMARY | 2024-11-21 15:13 | XMS_ITS | Encounter Summary ---
Author Organization [employer] ([place], [place], [place], [place]) Address [address] [place] [address] Care Team Providers Care Materials Tech Name Role Phone [facility], Provider Not In The System Primary Care Provider Unavailable Encounter Details Date Type Department Care Team (Late st Contact Info) Description 12/17/2019 Transcribed Document [facility] Family Medicine [address] [place] [address] ProviderFer MD [address] [place] [address] Social History Tobacco Use Types Packs/Day Years [...] Historical ProviderMD - 12/17/2019 1:49 PM CDT On Going Discharge Planning Entered On: 12/17/2019 13:49 EDT Performed On: 12/17/2019 13:49 EDT by MEGAN ROBLERO RN-Ballast Regulator OperatorFoundation Drill Operator Helper Progress Note Discharge Arrangements : Patient Post-Acute Information Patient Name: NASRIN MAY Gender: Female : [birth year] Age: 49 Years No Post-Acute Placement(s) Listed No Post-Acute Service(s) Listed No [place] Referral(s) Listed Discharge Options Discussed with Patient : Outpatient services Barriers to Discharge Unresolved : All resolved Physician Agreeable to Move Forward with D/C Plan? : Yes Did you Attend Multidisciplinary Rounds? : Yes MEGAN ROBLERO RN-Ballast Regulator Operator - 12/17/2019 13:49 EDT Electronically signed by [facility], [facility] Conversion Imaging System Administrator Cerner at 08/23/2022 5:44 PM CDT documented in this encounter Plan of Treatment Not on file documented as of this encounter Visit Diagnoses Not on filedocumented in this encounter Care Teams Materials Tech Relationship Specialty Start Date End Date [facility], Provider Not In The System, [place] [address] PCP - General 09/23/22 documented as of this encounter
--- OUTSIDE RECORDS SUMMARY | 2024-11-21 15:13 | XMS_ITS | Encounter Summary ---
Author Organization [employer] ([place], [place], [place], [place]) Address [address] [place] [address] Care Team Providers Care Equipment Planner Name Role Phone [facility], Provider Not In The System Primary Care Provider Unavailable Encounter Details Date Type Department Care Team (Late st Contact Info) Description 12/15/2019 Transcribed Document [facility] [place] Medicine [address] [place] [address] ProviderFer MD [address] [place] [address] Social History Tobacco Use Types Packs/Day Years Used Date Smoking Tobacco: Never Assessed Comments Unknown Sex and Gender Information Value Date Recorded Sex Assigned at Female 11/03/2021 8:12 PM CDT Legal Sex Female 8:12 PM CDT Gender Identity Female 11/03/2021 8:12 PM CDT Sexual Orientation Not on file documented as of this encounter Miscellaneous Notes * Cerner Conversion Note - Historical ProviderMD - 12/15/2019 8:52 AM CDT UM Authorization Entered On: 12/15/2019 8:53 EDT Performed On: 12/15/2019 8:52 EDT by WILLIE MITCHELL RN Primary Insurance Authorization Authorization and Policy Numbers : Insurance 1 Health Plan: [employer] Policy Number: [id number] Authorization Number: Insurance Primary Name : [facility] [id number] Authorization Status-Primary : Awaiting callback Authorization Number-Primary : [id number] Authorized Service Begin Date-Primary : 12/14/2019 EDT Historical Authorization Comments-Primary : Comment 1: Per [facility] portal pending auth for IP, CPT codes are 49507, 40543, 87835, 24962, 44992, 57413, 55984 (WILLIE MITCHELL RN 12/15/2019 08:49) Comment 2: pt is scheduled for INPT Lumbar Fusion Posterior 3 Level Cervical Discectomy Fusion Posterior and Cervical Laminectomy Posterior on Tuesday12/14/2019 PA will call and obtain auth on date of serv. (MELISSA LIU, Insurance Verifier 12/13/2019 13:30) WILLIE MITCHELL, NAN - 12/15/2019 8:52 EDT Electronically signed by Miki [facility] Conversion Python Django Developer Cerner at 08/23/2022 5:41 PM CDT documented in this encounter Plan of Treatment Not on file documented as of this encounter Visit Diagnoses Not on filedocumented in this encounter Care Teams Equipment Planner Relationship Specialty Start Date End Date [facility], Provider Not In The System, [place] [address] PCP - General 09/23/22 documented as of this encounter
--- OUTSIDE RECORDS SUMMARY | 2024-11-21 15:13 | XMS_ITS | Encounter Summary ---
Author Organization [employer] ([place], [place], [place], [place]) Address [address] [place] [address] Care Team Providers Care Visual Specialist Name Role Phone [facility], Provider Not In The System Primary Care Provider Unavailable Encounter Details Date Type Department Care Team (Late st Contact Info) Description 12/17/2019 Transcribed Document [facility] Radiology [address] [place] [address] Latisha Alexandre MD [address] [place] [address] Social History Tobacco Use Types Packs/Day Years Used Date Smoking Tobacco: Never Assessed Comments Unknown Sex and Gender Information Value Date Recorded Sex Assigned at Female 11/03/2021 8:12 PM CDT Legal Sex Female 8:12 PM CDT Gender Identity Female 11/03/2021 8:12 PM CDT Sexual Orientation Not on file documented as of this encounter Miscellaneous Notes * Cerner Conversion Note - Latisha Alexandre MD - 12/17/2019 9:47 AM EDT Patient: NASRIN MAY Age: 49 years Sex: Female : 1970 Associated Diagnoses: None Author: BRAYDON WAGGONER PA-PRAKASH Chief Complaint: Medical Management (EtOH use) s/p C3-C5 posterior laminectomy and fusion with lateral mass arthrodesis requested by Dr Robbins S: Pt is doing ok. No f'/c/s. No n/v/d. (+) gas, (-) BM. No CP, SOA, palpitations. No cough or sputum. Urinating well. +post op pain. Using incentive spirometer. c/o coldness in hands, yesterday felt better, but now back to where they were before. HPI: 49 Y/O wf Patient is followed for medical management perioperatively while hospitalized for medical management s/p lumbar fusion after failing conservative therapy. Patient denies any recent exacerbations of chronic medical problems. Patient denies recent cardiopulmonary symptoms in the weeks leading up to surgery. Patient denies recent fever, chills or nightsweats. Patient denies recent sinus infection, bronchitis, or pneumonia. Denies gastroenteritis. Denies chest pain, pressure or palpitations. Denies recent antibiotics or med changes by PCP. Patients physical limitations are limited by chronic back pain. Review of preop workup showns normal cxr, urinalysis and EKG. Intra-op reports reviewed - no signs of sustained hemodynamic instability. PACU course - unremarkable MEDICAL HISTORY - HTN, MYLA, MIGRAINE STEVENS, Allergic rhinitis Anxiety Arm numbness- both Arthritis (back, neck) At risk for sleep apnea Cervical spinal stenosis Dizziness GERD - Gastro-esophageal reflux disease High blood pressure Hoarseness of voice Migraine Neck pain Renal calculus (hx of) Active Procedures (1) ACDF C3-4 SOCIAL HISTORY - 1/2 ppd Social & Psychosocial Habits Alcohol 04/01/2017 Alcohol Use History, Social Habits Yes Days Per Week of Alcohol Use 4 Number of Drinks per Day 3 Total Drinks Per Week 12 Substance Abuse 04/01/2017 Recreational Drug Use History No Recreational Drug Use Last 12 Months No Tobacco 04/01/2017 Smoking Status Current every day smoker Smoking Frequency Within Last 30 Days Five or more cigarettes p Tobacco Use Within Last Twelve Months Cigarettes Years of Tobacco Use 20 Packs/Tins Daily 1.5 Used Tobacco, but Quit No Second Hand Smoke Exposure Yes ALLERGIES - NKDA EXAM Vitals Signs (last 24 hrs) Last Charted Minimum Maximum Temp 98.4 (DEC 16 06:15) 98 (DEC 15 11:17) 99 (DEC 15 22:30) Mon HR 79 (DEC 16:15) 64 (DEC 15:17) 79 (DEC 16:15) Resp Rate 18 (DEC 16:) 16 (DEC 15 18:25) 18 (DEC 15:30) SBP 117 (DEC 16:) 94 (DEC 15 15:00) 117 (DEC 16:15) DBP 79 (DEC 16:) 63 (DEC 15 15:00) 79 (DEC 16:) MAP 89 (DEC 16:) 74 (DEC 15:00) 89 (DEC 16:) SpO2 95 (DEC 16:) L 92 (DEC 15:30) 99 (DEC 15:) GEN: Alert, awake, NAD HEENT: NCAT, neck brace in place. CV: S1S2, no murmur. No LE edema Resp: CTAB, NL Abd: Soft, NT, ND +BS Skin: no rashes on inspection and palpation. Ext: No LE edema. No joint edema, erythema. Neuro: A&O x 3 IMPRESSION C4-C5 stenosis with instability causing cervical myelopathy s/p C3-C5 posterior laminectomy and fusion with lateral mass arthrodesis requested by Dr Robbins HTN TOB & Etoh USE PLAN OK to discharge from IM standpoint pain meds per surgery bowel regimen at home IS at home Assessment and treatment plan made in conjunction with Jourdan Alexandre MD documented in this encounter Plan of Treatment Not on file documented as of this encounter Visit Diagnoses Not on filedocumented in this encounter Care Teams Visual Specialist Relationship Specialty Start Date End Date [facility], Provider Not In The System, [place] [address] PCP - General 09/23/22 documented as of this encounter
--- OUTSIDE RECORDS SUMMARY | 2024-11-21 15:13 | XMS_ITS | Encounter Summary ---
Author Organization [employer] ([place], [place], [place], [place]) Address [address] [place] [address] Care Team Providers Care Recruitment Consultant Name Role Phone [facility], Provider Not In The System Primary Care Provider Unavailable Encounter Details Date Type Department Care Team (Late st Contact Info) Description 12/24/2019 Transcribed Document [facility] Family Medicine [address] [place] [address] ProviderFer MD [address] [place] [address] Social History Tobacco Use Types Packs/Day Years Used Date Smoking Tobacco: Never Assessed Comments Unknown Sex and Gender Information Value Date Recorded Sex Assigned at Female 11/03/2021 8:12 PM CDT Legal Sex Female 8:12 PM CDT Gender Identity Female 11/03/2021 8:12 PM CDT Sexual Orientation Not on file documented as of this encounter Miscellaneous Notes * Cerner Conversion Note - Historical ProviderMD - 12/24/2019 8:04 AM CDT UM Authorization Entered On: 12/24/2019 8:05 EDT Performed On: 12/24/2019 8:04 EDT by Ozzie Pineda Mkt Casino Banker-Utilization Mgt Primary Insurance Authorization Authorization and Policy Numbers : Insurance 1 Health Plan: [employer] Policy Number: [id number] Authorization Number: Insurance Primary Name : [facility] [id number] Authorization Status-Primary : Admit approved Auth/Referral Contact Name-Primary : DC Authorization Number-Primary : [id number] Number of Days Authorized-Primary : 3 Day(s) Authorized Service Begin Date-Primary : 12/14/2019 EDT Authorized Service End Date-Primary : 12/17/2019 EDT Authorization Comments-Primary : Inpt admission approved 12/14/2019-12/17/2019 per [facility] portal Historical Authorization Comments-Primary : Comment 1: Discharge date and summary faxed. (Theresa Daniel, Forest Fire Prevention Specialist 12/17/2019 15:19) Comment 2: Per [facility] portal pending auth for IP, CPT codes are 84711, 61926, 66846, 76168, 64624, 30303, 74648 (WILLIE MITCHELL RN 12/15/2019 08:49) Comment 3: pt is scheduled for INPT Lumbar Fusion Posterior 3 Level Cervical Discectomy Fusion Posterior and Cervical Laminectomy Posterior on Tuesday12/14/2019 PA will call and obtain auth on date of serv. (MELISSA LIU, Hot Worker 12/13/2019 13:30) Ozzie Pineda Mkt Casino Banker-Utilization Mgt - 12/24/2019 8:04 EDT documented in this encounter Plan of Treatment Not on file documented as of this encounter Visit Diagnoses Not on filedocumented in this encounter Care Teams Recruitment Consultant Relationship Specialty Start Date End Date [facility], Provider Not In The System, [place] [address] PCP - General 09/23/22 documented as of this encounter
--- OUTSIDE RECORDS SUMMARY | 2024-11-21 15:13 | XMS_ITS | Encounter Summary ---
Author Organization [employer] ([place], [place], [place], [place]) Address [address] [place] [address] Care Team Providers Care Well Treatment Offsider Name Role Phone [facility], Provider Not In The System Primary Care Provider Unavailable Encounter Details Date Type Department Care Team (Late st Contact Info) Description 12/14/2019 Transcribed Document [facility] [place] [address] [place] [address] ProviderFer MD [address] [place] [address] Social History Tobacco Use Types Packs/Day Years [...] Conversion Note - Historical ProviderMD - 12/14/2019 4:07 PM CDT Evaluation, Physical Therapy Entered On: 12/15/2019 11:09 EDT Performed On: 12/15/2019 10:58 EDT by AINSLEY LEE, PT General Information, PT Visit Type, PT : Initial evaluation Patient Orders : Order Date Order Ordering 12/14/2019 16:08 Physical Therapy Eval and Treat Ordered By: ALEX THAKUR MD-SNU 12/15/2019 10:29 Consult to Physical Therapy Ordered By: ALEX THAKUR MD-SNU Active Diagnoses : No Qualifying Diagnoses Therapy Diagnosis, PT : Impaired mobility due to cervical spine surgery. Onset of Problem, PT : 12/14/2019 EDT Admission Date : 12/14/2019 05:54 Co-treated by, PT : Occupational Therapist Personal Devices : Personal Devices No Devices Recorded Assistive Devices : Assistive Devices No Devices Recorded Precautions in Place : Other: Pt to wear hard cervical collar. General Information Comment, PT : Pt adm with C4/C5 stenosis and instability causing BUE myelopathy. S/P C3 -C5 laminectomy and posterolateral fusion 12/14/2019. AINSLEY LEE, PT - 12/15/2019 10:58 EDT General Status Patient Received Status : Supine in bed Treatment Start Time : 12/15/2019 10:28 EDT Patient Left Status : Up in chair, RN/PCT informed, All needs met and within reach (Comment: NAN Garcia [AINSLEY LEE, PT - 12/15/2019 10:58 EDT] ) Treatment End Time : 12/15/2019 10:50 EDT Treatment Time : 22 Minute(s) AINSLEY LEE, PT - 12/15/2019 10:58 EDT History and Environment Living Situation, Therapy : Other: first floor apt Patient Lives With : Alone Persons Assisting Patient at Home : Alone Professional Skilled Services : None Persons Providing Information : Patient Home Equipment Therapy, PT : Shower Equipment, Walker Shower Equipment : Shower Chair, with back Walker : Walker, four wheel, Walker, front wheel Home Setup : One story Bedroom Location : Main level Bathroom #1 Location : Main level Bathroom #1 Features : Toilet, Tub/Shower Stairs : Yes Stair Location(s) : Outside Outside Stairs, Number of Steps : 1 Railing Outside : No AINSLEY LEE PT - 12/15/2019 10:58 EDT Prior Level of Function PT GRID Prior LOF Ambulation, Household : Independent Prior LOF Ambulation, Community : Independent Prior LOF Bed Mobility : Independent Prior LOF Toileting : Independent Prior LOF Transfer : Independent Prior LOF Wheel Chair Mobility : na AINSLEY LEE, PT - 12/15/2019 10:58 EDT Prior LOF Assist with ADL Comment : Pt indep with ADL prior to onset of weakness. AINSLEY LEE PT - 12/15/2019 10:58 EDT Upper Extremity Right UE Active ROM : WFL AINSLEY LEE PT - 12/15/2019 10:58 EDT Right Upper Extremity Detailed ROM Grid Right Shoulder Flexion Range Active : 90 AINSLEY LEE, PT - 12/15/2019 10:58 EDT Left UE Active ROM : WFL JESUS AINSLEY, PT - 12/15/2019 10:58 EDT Left Upper Extremity Detailed ROM Grid Left Shoulder Flexion Range Active : 90 AINSLEY LEE PT - 12/15/2019 10:58 EDT Upper Extremity Comment : See OT note for MMT. AINSLEY LEE, PT - 12/15/2019 10:58 EDT Lower Extremity RLE Active ROM : WFL Right LE Strength : WFL LLE Active ROM : WFL Left LE Strength : WFL AINSLEY LEE, PT - 12/15/2019 10:58 EDT Functional Mobility Mobility Grid Supine to Sit : Rehab Minimal assistance (Comment: min/S [AINSLEY LEE, PT - 12/15/2019 10:58 EDT] ) Sit to Stand : Rehab Minimal assistance Stand to Sit : Supervision/set-up AINSLEY LEE PT - 12/15/2019 10:58 EDT Supine to Sit Device : Rails, Other: HOB at 30 degrees. Sit to Stand Device : Belt, gait, Walker, front wheel Stand to Sit Device : Belt, gait, Walker, front wheel Functional MobilityComment : Verbal and tactile cues for safe sequencing of all mobility. AINSLEY LEE, PT - 12/15/2019 10:58 EDT Gait Training/Assessment, PT Weight Bearing Status Maintained : Yes Weight Bearing Status : Full Weight Bearing Status Comment : Pt wearing hard cervical collar Gait Assistance Level : Assist, minimal Walking Distance : AMB 140 ft with occasional Asst to navigate RW around obstacles. Pt occasionally demonstrating brief epsodes of slight buckling with indep recovery. No weakness noted in BLE with MMT. Ambulatory Devices : Gait belt, Walker, front wheel Gait Deviations : Yes Left Lower Gait Deviation : Lissette, decreased, Step length, decreased Right Lower Gait Deviation : Lissette, decreased, Step length, decreased AINSLEY LEE, PT - 12/15/2019 10:58 EDT Cognition Assessment, PT Orientation : Oriented x 4 AINSLEY LEE PT - 12/15/2019 10:58 EDT Edu Topics Physical Therapy Education Grid Bed Mobility Training : Returns demonstration, Needs further teaching Gait Training : Returns demonstration, Needs further teaching Role of Physical Therapy : Verbalizes understanding Safety : Returns demonstration, Needs further teaching Use of Assistive Device : Returns demonstration, Needs further teaching Physical Therapy, Other : Verbalizes understanding (Comment: Pt educated regarding POC. [AINSLEY LEE, PT - 12/15/2019 10:58 EDT] ) Indication Assesessment, PT Physical Therapy Indicated : Yes PT Problem List : Impaired, bed mobility, Impaired, endurance tolerance, Impaired, gait, Impaired, standing balance, Impaired, transfers, Pain limiting function Potential Barriers To Therapy : Pain Rehabilitation Potential : At prior level of function AINSLEY LEE, PT - 12/15/2019 10:58 EDT Plan of Care, PT PT Tx Plan/Goals Established w Patient : Yes PT Frequency Rehab : Daily, twice (bid) PT Duration Rehab : Fourteen days PT Treatments Planned : Bed mobility training, Gait training, Safety education, Therapeutic exercises, Transfer training AINSLEY LEE, PT - 12/15/2019 10:58 EDT [facility] Goals Mobility/Bed Mobility LTG PT Grid Goal #1 Goal #2 Activity : Supine to sit Sit to stand Assist : Independent, modified Independent, modified Equipment : Walker, front wheel Date to Meet : 12/29/2019 EDT 12/29/2019 EDT Goal Status : Intial Goal Intial Goal AINSLEY LEE, PT - 12/15/2019 10:58 EDT AINSLEY LEE, PT - 12/15/2019 10:58 EDT Ambulation LTG Grid Goal #1 Device : Walker, front wheel Distance : 300 ft Assist : Independent, modified Date to Meet : 12/29/2019 EDT Goal Status : Intial Goal Comment : Hard cervical collar AINSLEY LEE, PT - 12/15/2019 10:58 EDT Treatment Note Subjective Comment : Pt agreeable to treatment. Assessment : Pt adm with C4/C5 stenosis with instability and B UE myelopathy. She is s/p C3-C5 laminectomy and posterolateral fusion 12/14/2019. She currently requires skilled PT due to impaired functional mobility. Plan for Treatment : See POC. AINSLEY LEE, PT - 12/15/2019 10:58 EDT Pain Assessment Pain Scaled Used : 0-10 Pain scale Pain Score During-Intervention : 5 Location : Cervical AINSLEY LEE PT - 12/15/2019 10:58 EDT Image 1 - Images currently included in the form version of this document have not been included in the text rendition version of the form. Anticipated Discharge Needs, OT/PT Anticipated Discharge to : Home, with home health AINSLEY LEE, PT - 12/15/2019 10:[address] [facility] PT Charges PT Eval Low Complexity : 1 AINSLEY LEE, PT - 12/15/2019 10:58 EDT Electronically signed by Miki, [facility] Conversion Glass Vial Filler Cerner at 08/23/2022 5:25 PM CDT documented in this encounter Plan of Treatment Not on file documented as of this encounter Visit Diagnoses Not on filedocumented in this encounter Care Teams Well Treatment Offsider Relationship Specialty Start Date End Date [facility], Provider Not In The System, [place] [address] PCP - General 09/23/22 documented as of this encounter
--- OUTSIDE RECORDS SUMMARY | 2024-11-21 15:13 | XMS_ITS | Encounter Summary ---
Author Organization [employer] ([place], [place], [place], [place]) Address [address] [place] [address] Care Team Providers Care Advanced Quality Engineer Name Role Phone [facility], Provider Not In The System Primary Care Provider Unavailable Encounter Details Date Type Department Care Team (Late st Contact Info) Description 12/15/2019 Transcribed Document [facility] [place] Family Medicine [address] [place] [address] ProviderFer MD [address] [place] [address] Social History Tobacco Use Types Packs/Day Years [...] Conversion Note - Historical ProviderMD - 12/15/2019 2:06 PM CDT Treatment Intervention, OT Entered On: 12/17/2019 12:17 EDT Performed On: 12/17/2019 10:20 EDT by DEVIN DWYER COTA General Information, OT Visit Type, OT : Treatment Note Patient Orders : Order Date Order Ordering 12/14/2019 16:08 Occupational Therapy Evaluation and Treatme Ordered By: ALEX THAKUR MD-SNU 12/15/2019 14:06 Occupational Therapy Additional Tx Ordered By: Active Diagnoses : 12/17/2019 12:00 Cervical disc disorder with radiculopathy, unspecified cervical region Therapy Diagnosis, OT : decreased fxl status due to pain, weakness Admission Date : 12/14/2019 05:54 Co-treated by, OT : Physical Therapist Personal Devices : Personal Devices No Devices Recorded Assistive Devices : Assistive Devices No Devices Recorded Precautions in Place : Fall prevention measures, Other: Pt to wear hard cervical collar. DEVIN DWYERKATHIE - 12/17/2019 11:59 EDT General Status Patient Received Status : Supine in bed Treatment Start Time : 12/17/2019 9:49 EDT Patient Left Status : Supine in bed, RN/PCT informed, Communication board completed, All needs met and within reach Treatment End Time : 12/17/2019 10:20 EDT Treatment Time : 31 Minute(s) YULIYADEVINKATHIE - 12/17/2019 11:59 EDT Functional Mobility Mobility Grid Bed Roll Left : Rehab Modified independence Bed Scooting : Rehab Modified independence Supine to Sit : Rehab Modified independence Sit to Stand : Rehab Modified independence DEVIN DWYERKATHIE - 12/17/2019 11:59 EDT Plan of Care, OT OT Tx Plan/Goals Established w Patient : Yes DEVIN DWYERKATHIE - 12/17/2019 11:59 EDT Planner Intern Goals, OT Grooming LTG Grid Goal #1 Activity : Grooming Assist : Supervision or set up Date to Meet : 12/29/2019 EDT Goal Status : Initial goal Comment : standing at sink DEVIN DWYERKATHIE - 12/17/2019 11:59 EDT Dressing, Upper Body LTG Grid Goal #1 Activity : Dressing, Upper Body Assist : Supervision or set up Date to Meet : 12/29/2019 EDT Goal Status : Initial goal DEVIN DWYERKATHIE - 12/17/2019 11:59 EDT Dressing, Lower Body LTG Grid Goal #1 Activity : Dressing, Lower Body Assist : Supervision or set up Date to Meet : 12/29/2019 EDT Goal Status : Progressing, continue Comment : AE PRN YULIYA KATHIE BELTRAN - 12/17/2019 11:59 EDT Toilet Transfer LTG Grid Goal #1 Activity : Toilet Transfer, Ambulatory Assist : Supervision or set up Equipment : Rolling walker Date to Meet : 12/29/2019 EDT Goal Status : Goal met Date Met : 12/17/2019 EDT Comment : bathroom toilet, demo good safety DEVIN DWYER COTA - 12/17/2019 11:59 EDT Bed Mobility/ Bed Transfer LTG Grid Goal #1 Goal #2 Activity : Bed Mobility, Supine to Sit Bed Mobility, Sit to Supine Assist : Supervision or set up Supervision or set up Date to Meet : 12/29/2019 EDT 12/29/2019 EDT Goal Status : Goal met Initial goal Comment : log roll technique log roll technique DEVIN DWYERKATHIE - 12/17/2019 11:59 EDT DEVIN DWYER KATHIE - 12/17/2019 11:59 EDT Treatment Note Subjective Comment : Client was cleared for session Patient's Response to Treatment : Client mariana well. Moves slowly Additional Objective Information : Client was supine in bed. CO to EOB. Stood with gaitbelt and RW at SUP. Client ambulate an extended functional distance. Stopped and practiced steps. Ambulate back to room. Client was given AE including a aeronautical engineering technologist and sock aide. C/o numbness in B hands. Gave squeeze ball with ed to use daily. Client back to supine with CL in place. Assessment : Client will benefit from HH upon d/c to increase I with ADLs Plan for Treatment : continue with POC DEVIN DWYER KATHIE - 12/17/2019 11:59 EDT Pain Assessment Pain Scaled Used : 0-10 Pain scale Pain Score Pre-Intervention : 0 DEVIN DWYER KATHIE Cunningham 12/17/2019 11:59 EDT Image 1 - Images currently included in the form version of this document have not been included in the text rendition version of the form. Anticipated Discharge Needs, OT/PT Anticipated Discharge to : Home, with home health DEVIN DWYER KATHIE - 12/17/2019 11:[address] [facility] OT Charges VÁZQUEZ OT Selfcare/Hm Mgmt Ea 15 Min-VÁZQUEZ : 2 DEVIN DWYER KATHIE - 12/17/2019 11:59 EDT documented in this encounter Plan of Treatment Not on file documented as of this encounter Visit Diagnoses Not on filedocumented in this encounter Care Teams Advanced Quality Engineer Relationship Specialty Start Date End Date [facility]ie, Provider Not In The System, [place] [address] PCP - General 09/23/22 documented as of this encounter
--- OUTSIDE RECORDS SUMMARY | 2024-11-21 15:13 | XMS_ITS | Encounter Summary ---
Author Organization [employer] ([place], [place], [place], [place]) Address [address] [place] [address] Care Team Providers Care Reel Assembler Name Role Phone [facility], Provider Not In The System Primary Care Provider Unavailable Encounter Details Date Type Department Care Team (Late st Contact Info) Description 12/15/2019 Transcribed Document [facility] [place] [facility] [address] [place] [address] ProviderFer MD [address] [place] [address] Social History Tobacco Use Types Packs/Day Years [...] Conversion Note - Historical ProviderMD - 12/15/2019 11:10 AM CDT Treatment Intervention, PT Entered On: 12/17/2019 11:34 EDT Performed On: 12/17/2019 11:30 EDT by ABELARDO ALVARADO PTA General Information, PT Visit Type, PT : Treatment Note Patient Orders : Order Date Order Ordering 12/14/2019 16:08 Physical Therapy Eval and Treat Ordered By: ALEX THAKUR MD-SNU 12/15/2019 10:29 Consult to Physical Therapy Ordered By: ALEX THAKUR MD-SNU 12/15/2019 11:10 PT Additional Treatment Ordered By: AINSLEY LEE, PT Active Diagnoses : 12/17/2019 12:00 Cervical disc disorder with radiculopathy, unspecified cervical region Therapy Diagnosis, PT : Impaired mobility due to cervical spine surgery. Admission Date : 12/14/2019 05:54 Co-treated by, PT : Certified orthotics prosthetics assistant (VÁZQUEZ) Personal Devices : Personal Devices No Devices Recorded Assistive Devices : Assistive Devices No Devices Recorded Precautions in Place : Fall prevention measures, Other: Pt to wear hard cervical collar. ABELARDO ALVARADO PTA - 12/17/2019 11:30 EDT General Status Patient Received Status : Supine in bed Treatment Start Time : 12/17/2019 9:49 EDT Patient Left Status : Supine in bed, All needs met and within reach RN/PCT Informed Comment : NAN hyatt'd to treat. Treatment End Time : 12/17/2019 10:14 EDT Treatment Time : 25 Minute(s) ABELARDO ALVARADO PTA - 12/17/2019 11:30 EDT Functional Mobility Mobility Grid Supine to Sit : Supervision/set-up Sit to Stand : Supervision/set-up Stand to Sit : Supervision/set-up Sit to Supine : Supervision/set-up ABELARDO ALVARADO PTA - 12/17/2019 11:30 EDT Bed Comment : verbal cues for hand placement during transfers Sit to Stand Device : Walker, front wheel ABELARDO ALVARADO PTA - 12/17/2019 11:30 EDT Gait Training/Assessment, PT Weight Bearing Status Maintained : Yes Weight Bearing Status : Full Gait Assistance Level : Supervision Walking Distance : 500ft. Ambulatory Devices : Gait belt, Walker, front wheel Gait Deviations : Yes Left Lower Gait Deviation : Lissette, decreased Right Lower Gait Deviation : Lissette, decreased Gait Training Comment : patient amb with hard cervical collar on and has decreased trunk rotation but steady with no LOB ABELARDO ALVARADO PTA - 12/17/2019 11:30 EDT Cognitive Treatment, PT Orientation : Oriented x 4 ABELARDO ALVARADO PTA - 12/17/2019 11:30 EDT Edu Topics Physical Therapy Education Grid Gait Training : Returns demonstration, Needs further teaching Role of Physical Therapy : Returns demonstration Transfer Training : Returns demonstration, Needs further teaching ABELARDO ALVARADO PTA - 12/17/2019 11:30 EDT Indication Assesessment, PT Physical Therapy Indicated : Yes ABELARDO ALVARADO PTA - 12/17/2019 11:30 EDT Plan of Care, PT PT Tx Plan/Goals Established w Patient : Yes ABELARDO ALVARADO PTA - 12/17/2019 11:30 EDT Custodial Goals Mobility/Bed Mobility LTG PT Grid Goal #1 Goal #2 Activity : Supine to sit Sit to stand Assist : Independent, modified Independent, modified Equipment : Walker, front wheel Date to Meet : 12/29/2019 EDT 12/29/2019 EDT Goal Status : Progressing, continue Progressing, continue ABELARDO ALVARADO PTA - 12/17/2019 11:30 EDT ABELARDO ALVARADO PTA - 12/17/2019 11:30 EDT Ambulation LTG Grid Goal #1 Device : Walker, front wheel Distance : 300 ft Assist : Independent, modified Date to Meet : 12/29/2019 EDT Goal Status : Progressing, continue Comment : Hard cervical collar ABELARDO ALVARADO PTA - 12/17/2019 11:30 EDT Treatment Note Subjective Comment : Patient agrees to treat and states both her hands feel cold and numb Assessment : Patient has improved amb endurance this date and should be able to return home with home health PT Plan for Treatment : Continue per POC. ABELARDO ALVARADO PTA - 12/17/2019 11:30 EDT Pain Assessment Pain Comment : patient states she has shooting pain down her neck but did not rate it ABELARDO ALVARADO PTA - 12/17/2019 11:30 EDT Image 1 - Images currently included in the form version of this document have not been included in the text rendition version of the form. Anticipated Discharge Needs, OT/PT Anticipated Discharge to : Home, with home health ABELARDO ALVARADO PTA - 12/17/2019 11:30 EDT [employer] PT Charges ENVELOPE SEALER OPERATOR PT Therap. Exercise 15 min-ENVELOPE SEALER OPERATOR : 1 Gait Training Each 15 Min-ENVELOPE SEALER OPERATOR : 1 ABELARDO ALVARADO PTA - 12/17/2019 11:30 EDT Electronically signed by Danie Livingston Conversion Guest Services Coordinator Cerner at 08/29/2022 1:06 PM CDT documented in this encounter Plan of Treatment Not on file documented as of this encounter Visit Diagnoses Not on filedocumented in this encounter Care Teams Reel Assembler Relationship Specialty Start Date End Date Danie, Provider Not In The System, [place] [address] PCP - General 09/23/22 documented as of this encounter
--- OUTSIDE RECORDS SUMMARY | 2024-11-21 15:13 | XMS_ITS | Encounter Summary ---
Author Organization [employer] ([place], [place], [place], [place]) Address [address] [place] [address] Care Team Providers Care Test And Turn Up Technician Name Role Phone [facility], Provider Not In The System Primary Care Provider Unavailable Encounter Details Date Type Department Care Team (Late st Contact Info) Description 12/14/[address] [facility] [place] Family Medicine [address] [place] [address] ProviderFer MD [address] [place] [address] Social History Tobacco Use Types Packs/Day Years [...] Historical ProviderMD - 12/14/2019 4:07 PM CDT Pain Assessment Entered On: 12/15/2019 2:46 EDT Performed On: 12/14/2019 21:59 EDT by Hilary Soto LPN Intervention Information: HYDROmorphone Performed by Hilary Soto LPN on 12/14/2019 21:29:00 EDT HYDROmorphone,0.5mg IV Push,Left Hand,Pain (Severe 7-10) Pain Assessment Pain Assessment : Follow-up assessment Pain Scale Goal : 4 Pain Scale Used : 0-10 Scale Location : Neck, posterior Onset : Acute Quality : Aching, Throbbing Pain Radiation : No Pain Worsened by : Movement Pain Improved by : Medication, Repositioning Pain Intervention, Drug : Medicated Pain Intervention, Non-Drug : Positioning Opioid Adverse Effects : None Pain Improved by Intervention : Yes Hilary Soto TAMIE - 12/15/2019 2:46 EDT Pain Scale Intensity : 5 Hilary Soto TAMIE - 12/15/2019 2:46 EDT Image 4 - Images currently included in the form version of this document have not been included in the text rendition version of the form. documented in this encounter Plan of Treatment Not on file documented as of this encounter Visit Diagnoses Not on filedocumented in this encounter Care Teams Test And Turn Up Technician Relationship Specialty Start Date End Date [facility], Provider Not In The System, [place] [address] PCP - General 09/23/22 documented as of this encounter
--- OUTSIDE RECORDS SUMMARY | 2024-11-21 15:13 | XMS_ITS | Encounter Summary ---
Author Organization [employer] ([place], [place], [place], [place]) Address [address] [place] [address] Care Team Providers Care Laboratory Engineer Name Role Phone [facility], Provider Not In The System Primary Care Provider Unavailable Encounter Details Date Type Department Care Team (Late st Contact Info) Description 12/16/2019 Transcribed Document [facility] Radiology [address] [place] [address] Mary Lou Driver MD [address] [place] [address] Social History Tobacco Use Types Packs/Day Years Used Date Smoking Tobacco: Never Assessed Comments Unknown Sex and Gender Information Value Date Recorded Sex Assigned at Female 11/03/2021 8:12 PM CDT Legal Sex Female 8:12 PM CDT Gender Identity Female 11/03/2021 8:12 PM CDT Sexual Orientation Not on file documented as of this encounter Miscellaneous Notes * [employer]ner Conversion Note - Mary Lou Driver MD - 12/16/2019 1:19 PM EDT Patient: NASRIN MAY Age: 49 years Sex: Female : 1970 Associated Diagnoses: None Author: MARY LOU DRIVER MD-INT Chief Complaint: Medical Management (EtOH use) s/p C3-C5 posterior laminectomy and fusion with lateral mass arthrodesis requested by Dr Rosendo S: doing well. no fever, chills, nightsweats. denies cough. no sob or jarvis. no chest pain, pressure or palpitations. no nausea, vomiting. (+) flatus. (-) BM no issues with urination no calf tenderness. tolerable post-op soreness/pain HPI: 49 Y/O wf Patient is followed [...] MEDICAL HISTORY - HTN, MYLA, MIGRAINE STEVENS, SURGICAL HISTORY SOCIAL HISTORY - 1/2 ppd FAMILY HISTORY ALLERGIES - NKDA REVIEW OF SYMPTOMS denies any major change in weight; mild weakness, fatigue; no change in appetite denies acute changes to vision, hearing, or speech; denies dyspnea with exertion or chest pressure as above no recent bronchitis or pneumonia; smokeR decades ago; no nausea, vomiting, diarrhea; (+) constipation; no melena, no rectal bleeding no dm, or dyslipid stable; no hx of thyroid dysfxn; vit D def no autoimmune disease, anemia or cancer; (-) gout - chronic control; no flair in years denies depression, maureen, anxiety denies sleep apnea no cancer; (-) anemia no seizures, strokes or syncope EXAM Vitals Signs (last 24 hrs) Last Charted Minimum Maximum Temp 98 (DEC 15 11:17) 97.9 (DEC 15 00:49) 98.5 (DEC 14 15:30) Mon HR 64 (DEC 15:17) 53 (DEC 15 00:49) 67 (DEC 14 15:30) Resp Rate 17 (DEC 15:17) 16 (DEC 15 05:00) 17 (DEC 14 15:30) SBP 104 (DEC 15:) 91 (DEC 14 21:00) 106 (DEC 15 05:00) DBP 68 (DEC 15:) L 49 (DEC 14:00) 68 (DEC 15:) MAP 80 (DEC 15:) 61 (DEC 14 21:00) 80 (DEC 15:) SpO2 99 (DEC 15:) 96 (DEC 14 15:30) 99 (DEC 15:) WD WN white WOman in no distress; pleasant, cooperative, good historian; nc/at, eomi, PEERL, pink conjunctiva, moist mucous membranes, posterior cervical neck drain =expansion b/l without wheezes rales or rhonchi non-displaced PMI, reg s1, s2 ABDis soft non-tender, non-distended, norm bowel sounds skin warm, dry without rashes ext: without edema, no calf tenderness neuro: cn 2-12 intact; no gross motor -sensory deficits psych: normal affect, good mood IMPRESSION s/p C3-C5 posterior laminectomy and fusion with lateral mass arthrodesis requested by Dr Robbins HTN TOB & Etoh USE PLAN no signs of etoh withdrawal CIWA PROTOCOL Monitor HTN; add PRN's, hold parameters bowel regimen incentive spirometer PT/OT DVT prophylaxis noted Pain management deferred to surgeon will monitor hb/hct daily for signs of ongoing acute blood loss will monitor bun/cr daily for signs of dehydration, prerenal azotemia will monitor for signs/symptoms of post-op wound infection or hospital acquired infectious process accuchecks qac, qhs for blood glucose monitoring; will hold oral diabetic agents while hospitalized. will use short acting insulin for correction. may add long-acting insulin for persistent hyperglycemia resume outpatient medication regimen for comorbidities documented in this encounter Plan of Treatment Not on file documented as of this encounter Visit Diagnoses Not on filedocumented in this encounter Care Teams Laboratory Engineer Relationship Specialty Start Date End Date [facility], Provider Not In The System, [place] [address] PCP - General 09/23/22 documented as of this encounter
--- OUTSIDE RECORDS SUMMARY | 2024-11-21 15:13 | XMS_ITS | Encounter Summary ---
Author Organization [employer] ([place], [place], [place], [place]) Address [address] [place] [address] Care Team Providers Care Division Merchandise Manager Name Role Phone [facility], Provider Not In The System Primary Care Provider Unavailable Encounter Details Date Type Department Care Team (Late st Contact Info) Description 12/17/2019 Transcribed Document [facility] Neurology - [facility] [address] [id number] Alex Thakur Jr., MD [facility] [place] [address] Social History Tobacco Use Types Packs/Day Years [...] Note - Alex Thakur Jr., MD - 12/17/2019 10:53 AM EDT Patient: NASRIN MAY Age: 49 Years Sex: Female : 1970 Assessment/Plan POD 3 C3-C5 posterior cervical decompression and fusion good functional mobility, pain well controlled UE strength stable - dc home today with services - discussed postop expectations. - don collar when up and about VTE Prophylaxis - Medical Sequential Compression Device Start: 12/14/19 16:07:00 EDT, Bilateral, Continuous Order (ALEX THAKUR) Sequential Compression Device Start: 12/14/19 11:06:00 EDT, Bilateral, Continuous Order (DELMY TAY) Subjective post neck pain cold/numbness sensation in the hand this morning, not as severe as preop strength still better ambulated 400ft with Pt yesterday wants to go home, lives alone, but will stay with her mother. Vital Signs T: 36.9 ??C TMIN: 36.7 ??C TMAX: 37.2 ??C HR: 79(Monitored) RR: 18 BP: 117/79 SpO2: 95% Oxygen Settings (Last) Oxygen Therapy Mode: Room air (12/16/19 18:25:00) Oxygen Flow Rate: 2 Liter/Min (12/14/19 17:10:00) Intake & Output Totals Last 24 Hours (7a-7a) Input Total: 1160 mL Output Total: 0 mL Balance: 1160 mL Physical Exam nad incision cdi bandage intact and dry 4+/5 bilateral director of contracts nonlabored breathing appropriate documented in this encounter Plan of Treatment Not on file documented as of this encounter Visit Diagnoses Not on filedocumented in this encounter Care Teams Division Merchandise Manager Relationship Specialty Start Date End Date [facility], Provider Not In The System, [place] [address] PCP - General 09/23/22 documented as of this encounter
--- OUTSIDE RECORDS SUMMARY | 2024-11-21 15:13 | XMS_ITS | Referral Summary ---
Author Organization [employer] ([place], [place], [place], [place]) Address [address] [place] [address] Care Team Providers Care River Transportation Worker Name Role Phone [facility], Provider Not In The System Primary Care Provider Unavailable Allergies No known active allergies Medications atenoloL (TENORMIN) 25 MG tablet Take 1 tablet (25 mg total) by mouth daily. Active hydroCHLOROthi azide (HYDRODIURIL) 12.5 MG tablet Take 1 tablet (12.5 mg total) by mouth daily. Active levothyroxine (SYNTHROID, LEVOTHROID) 25 MCG tablet Take 1 tablet (25 mcg total) by mouth Every morning on an empty stomach. Active omeprazole (PriLOSEC) 20 MG capsule Take 1 capsule (20 mg total) by mouth daily. Active fLUoxetine (PROzac) 20 MG capsule Take 1 capsule (20 mg total) by mouth daily. Active gabapentin (NEURONTIN) 800 MG tablet Take 1 tablet (800 mg total) by mouth 3 (three) times daily. Active mirtazapine (REMERON) 30 MG tablet Take 1 tablet (30 mg total) by mouth nightly. 08/19/19 23 Active cyclobenzaprin e (FLEXERIL) 10 MG tablet Take 1 tablet (10 mg total) by mouth 3 (three) times daily as needed for Muscle spasms. Active medroxyPROGEST ERone (DEPO-PROVERA) 150 mg/mL injection Inject 1 mL (150 mg total) intramuscularly every 3 (three) months. Active oxyCODONE-acet aminophen (PERCOCET) 5-325 mg per tablet Take 1 tablet by mouth every 6 (six) hours as needed for Pain . Max Daily Amount: 4 tablets 40 tablet 11/21/19 Active Ventolin HFA 90 mcg/actuation inhaler SMARTSI Inhalation By Mouth 4 Times Daily 10/31/19 Active pregabalin (Lyrica) 150 MG capsule Take 1 capsule (150 mg total) by mouth 3 (three) times daily. Max Daily Amount: 450 mg 90 capsule 2 10/31/19 24 025 Active Problems Problem Noted Date Diagnosed Date Spondylosis 11/17/2022 Allergic rhinitis 11/03/2022 Anxiety 11/03/2022 Arthritis 11/03/2022 At risk for sleep apnea 11/03/2022 Calculus of kidney 11/03/2022 Cervical spinal stenosis 11/03/2022 Gastroesophageal reflux disease 11/03/2022 High blood pressure 11/03/2022 Hoarseness of voice 11/03/2022 Migraine 11/03/2022 Neck pain 11/03/2022 Numbness of upper extremity 11/03/2022 Social History Tobacco Use Types Packs/Day Years Used Date Smoking Tobacco: Every Day Cigarettes 1 25 Passive Smoke Exposure: Past Smokeless Tobacco: Never Tobacco Cessation:Ready to Q uit: Not Asked; Counseling Given: Not Answered Alcohol Use Standard Drinks/Week Comments Not Currently 0 (1 standard drink = 0.6 oz pur e alcohol) 5-6 beers a night Family and Community Support Answer Eron e Recorded Help with Day to Day Activities Not on file 05/18/2023 Feeling Lonely or Isolated Not on file 05/18 Educational Attainment Answer Date Heraclio rded Speak language other than Montserratian at home Not on file 05/18/2023 Want help with school or training Not on file 05/18/2023 Substance Use Answer Date Recorded Used prescription meds for non-medical reasons N ot on file 05/18/2023 Used illegal drugs past 12 months Not on file 05/18/2023 Comments No Sex and Gender Information Value Date Recorded Sex Assigned at Female 11/03/2021 8:12 PM CDT Legal Sex Female 8:12 PM CDT Gender Identity Female 11/03/2021 8:12 PM CDT Sexual Orientation Not on file Last Filed Vital Signs Vital Sign Reading Time Taken Comments Blood Pressure 117/75 07/26/2024 10:38 AM EDT Pulse 73 07/26/2024 10:38 AM EDT Temperature 36.9 C (98.4 F) 11/20/2022 11:40 AM EDT Respiratory Rate 16 11/20/2022 1:55 AM EDT Oxygen Saturation 98% 12/07/2023 10:37 AM EDT Inhaled Oxygen Concentration - - Weight 89.4 kg (197 lb) 07/26/2024 10:38 AM EDT Height 157.5 cm (5' 2 ) 07/26/2024 10:38 AM EDT Body Mass Index 36.03 07/26/2024 10:38 AM EDT Plan of Treatment Not on file Medical Devices Implanted Type Area Roguer Device Identifier Shelf Expiration Date Model / Serial / Lot Bone Vivigen Formable [id number] - [id number] Implanted:Qty: 1 on 11/17/2022 by Jah Robbins Jr., MD at [facility] IMPLANTS N/A: Neck LIFENET:LIFENET TRANSPLANT SRV 10/28/[id number] / Cage Eit Cif H 6mm 8d S [id number] - [id number] Implanted:Qty: 1 on 11/17/2022 by Jah Robbins Jr., MD at [facility] IMPLANTS N/A: Neck J &J:DEPUY:DEPUY SPINE 10/07/2027 [id number] / / [id number] Scr Skyln Vari Sd 16mm 1867-50-016 - [id number] Implanted:Qty: 4 on 11/17/2022 by Jah Robbins Jr., MD at [facility] IMPLANTS N/A: Neck J &J:DEPUY:DEPUY SPINE 6 / 6 / Cage Eit Cif H 6mm 8d S [id number] - [id number] Implanted:Qty: 1 on 11/17/2022 by Jah Robbins Jr., MD at [facility] IMPLANTS N/A: Neck J &J:DEPUY:DEPUY SPINE 10/07/2027 [id number] / / [id number] Cage Eit Cif H 5mm 8d S [id number] - [id number] Implanted:Qty: 1 on 11/17/2022 by Jah Robbins Jr., MD at [facility] IMPLANTS N/A: Neck J &J:DEPUY:DEPUY SPINE 11/05/2025 [id number] / / [id number] Plt Ant Skyln Hybrd Lvl3 45mm - [id number] Implanted:Qty: 1 on 11/17/2022 by Jah Robbins Jr., MD at [facility] IMPLANTS N/A: Neck J &J:DEPUY:DEPUY SPINE 1867-07-11 5 / 1867-07-11 5 / Scr Skyln Vari-Ovsz 16mm - Implanted:Qty: 4 on 11/17/2022 by Jah Robbins Jr., MD at [facility] IMPLANTS N/A: Neck J &J:DEPUY:DEPUY SPINE 6 / 6 / Insurance MEDICAID [place] Advance Directives For more information, please contact: [phone] Documents on File Type Date Recorded Patient [employer] Cord Expl anation Advance Directives and Livin g Will 11/17/2022 7:10 AM Care Teams River Transportation Worker Relationship Specialty Start Date End Date [facility], Provider Not In The System, [place] [address] PCP - General 5/18/23
--- OUTSIDE RECORDS SUMMARY | 2024-11-21 15:13 | XMS_ITS | Encounter Summary ---
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 Phone [facility], Provider Not In The System Primary Care Provider Unavailable Reason for Referral * CAT Scan (Routine) - Closed Specialty Diagnoses / Procedures Referred By Contac t Referred To Contact Radiology Diagnoses Radiculopathy, cervical Procedures CT spine thoracic without IV contrast Jessica Horowitz APRN [address] [place] [address] Phone: tel: fax: Referral ID Status Reason Start Date Expiration Date Visits Re quested Visits Authorized [id number] Closed 09/01/2022 09/30/2022 1 1 * Flouroscopy (Routine) - Closed Specialty Diagnoses / Procedures Referred By Contac t Referred To Contact Diagnoses Radiculopathy, cervical Procedures [place] myelogram two or more regions Jessica Horowitz APRN [address] [place] [address] Phone: tel: fax: Referral ID Status Reason Start Date Expiration Date Visits Re quested Visits Authorized [id number] Closed 09/10/2022 03/09/2023 1 1 * CAT Scan (Routine) - Closed Specialty Diagnoses / Procedures Referred By Contac t Referred To Contact Radiology Diagnoses Radiculopathy, cervical Procedures CT spine lumbar without IV contrast Jessica Horowitz APRN [address] [place] [address] Phone: tel: fax: Referral ID Status Reason Start Date Expiration Date Visits Re quested Visits Authorized [id number] Closed 09/01/2022 09/30/2022 1 1 * CAT Scan (Routine) - Closed Specialty Diagnoses / Procedures Referred By Contpenelope t Referred To Contact Radiology Diagnoses Radiculopathy, cervical Procedures CT cervical spine without contrast Jessica Horowitz APRN [address] [place] [address] Phone: tel: fax: Referral ID Status Reason Start Date Expiration Date Visits Re quested Visits Authorized [id number] Closed 09/01/2022 09/30/2022 1 1 Encounter Details Date Type Department Care Team (Late st Contact Info) Description 09/10/2022 Outside Orders [facility] Central Scheduling [address] [place] [address] Jessica Horowitz APRN [address] [place] [address] Radiculopathy, cervical (Primary Dx) Social History Tobacco Use Types Packs/Day Years Used Date Smoking Tobacco: Never Assessed Comments Unknown Sex and Gender Information Value Date Recorded Sex Assigned at Female 11/03/2021 8:12 PM CDT Legal Sex Female 8:12 PM CDT Gender Identity Female 11/03/2021 8:12 PM CDT Sexual Orientation Not on file documented as of this encounter Plan of Treatment Not on file documented as of this encounter Results * CT spine lumbar without IV contrast (09/23/2022 12:50 PM EDT) Anatomical Region Laterality Modality T-spine, L-spine, Pelvis Compute d Tomography (CT) 09/23/2022 1:42 PM EDT Impressions 09/23/2022 2:01 PM EDT Degenerative disc disease as detailed above. THORACIC CT WITH CONTRAST - POST MYELOGRAM; 09/23/2022 12:49 PM HISTORY: Chronic thoracic back pain. PROCEDURE: After the patient's myelogram, axial images were obtained through the spine by computed tomography. Sagittal reconstruction images were performed. This study was performed with techniques to keep radiation doses as low as reasonably achievable, (ALARA). Individualized dose reduction techniques using automated exposure control or adjustment of mA and/or kV according to the patient size were employed. FINDINGS: Contrast is identified in the thecal space. There is mild diffuse degenerative disc disease. There is no central canal stenosis. There is no subluxation or acute fracture. IMPRESSION: Degenerative disc disease as detailed above. No central canal stenosis. Images reviewed, interpreted, and dictated by Manuel Torres MD Narrative 09/23/2022 2:[address] WITH CONTRAST - POST MYELOGRAM; 09/23/2022 12:49 PM HISTORY: Chronic lumbar back pain. PROCEDURE: After the patient's myelogram, axial images were obtained through the spine by computed tomography. Sagittal reconstruction images were performed. This study was performed with techniques to keep radiation doses as low as reasonably achievable, (ALARA). Individualized dose reduction techniques using automated exposure control or adjustment of mA and/or kV according to the patient size were employed. FINDINGS: Contrast is identified in the thecal space. There is mild diffuse degenerative disc disease. There is marked degenerative disc disease and endplate change at L5-S1. L3-4: There is facet hypertrophy and a broad-based disc bulge. There is mild bilateral neural foraminal stenosis without central stenosis. L4-5: There is facet hypertrophy and a disc bulge. There is mild central canal and bilateral neural foraminal stenosis. L5-S1: There is facet hypertrophy and a broad-based disc bulge. There is moderate central canal stenosis. Vacuum phenomenon is noted. There is moderate bilateral neural foraminal stenosis. Procedure Note Orin Torres MD - 09/23/[address] WITH CONTRAST - POST MYELOGRAM; 09/23/2022 12:49 PM HISTORY: Chronic lumbar back pain. PROCEDURE: After the patient's myelogram, axial images were obtained through the spine by computed tomography. Sagittal reconstruction images were performed. This study was performed with techniques to keep radiation doses as low as reasonably achievable, (ALARA). Individualized dose reduction techniques using automated exposure control or adjustment of mA and/or kV according to the patient size were employed. FINDINGS: Contrast is identified in the thecal space. There is mild diffuse degenerative disc disease. There is marked degenerative disc disease and endplate change at L5-S1. L3-4: There is facet hypertrophy and a broad-based disc bulge. There is mild bilateral neural foraminal stenosis without central stenosis. L4-5: There is facet hypertrophy and a disc bulge. There is mild central canal and bilateral neural foraminal stenosis. L5-S1: There is facet hypertrophy and a broad-based disc bulge. There is moderate central canal stenosis. Vacuum phenomenon is noted. There is moderate bilateral neural foraminal stenosis. IMPRESSION: Degenerative disc disease as detailed above. THORACIC CT WITH CONTRAST - POST MYELOGRAM; 09/23/2022 12:49 PM HISTORY: Chronic thoracic back pain. PROCEDURE: After the patient's myelogram, axial images were obtained through the spine by computed tomography. Sagittal reconstruction images were performed. This study was performed with techniques to keep radiation doses as low as reasonably achievable, (ALARA). Individualized dose reduction techniques using automated exposure control or adjustment of mA and/or kV according to the patient size were employed. FINDINGS: Contrast is identified in the thecal space. There is mild diffuse degenerative disc disease. There is no central canal stenosis. There is no subluxation or acute fracture. IMPRESSION: Degenerative disc disease as detailed above. No central canal stenosis. Images reviewed, interpreted, and dictated by Manuel Torres MD Jessica Horowitz APRN IM CT ORDERABLES Final Resu lt * CT spine thoracic without IV contrast (09/23/2022 12:48 PM EDT) Anatomical Region Laterality Modality C-spine, T-spine, L-spine, Chest Computed Tomography (CT) 09/23/2022 1:42 PM EDT Impressions 09/23/2022 2:01 PM EDT Degenerative disc disease as detailed above. THORACIC CT WITH CONTRAST - POST MYELOGRAM; 09/23/2022 12:49 PM HISTORY: Chronic thoracic back pain. PROCEDURE: After the patient's myelogram, axial images were obtained through the spine by computed tomography. Sagittal reconstruction images were performed. This study was performed with techniques to keep radiation doses as low as reasonably achievable, (ALARA). Individualized dose reduction techniques using automated exposure control or adjustment of mA and/or kV according to the patient size were employed. FINDINGS: Contrast is identified in the thecal space. There is mild diffuse degenerative disc disease. There is no central canal stenosis. There is no subluxation or acute fracture. IMPRESSION: Degenerative disc disease as detailed above. No central canal stenosis. Images reviewed, interpreted, and dictated by Manuel Torres MD Narrative 09/23/2022 2:[address] WITH CONTRAST - POST MYELOGRAM; 09/23/2022 12:49 PM HISTORY: Chronic lumbar back pain. PROCEDURE: After the patient's myelogram, axial images were obtained through the spine by computed tomography. Sagittal reconstruction images were performed. This study was performed with techniques to keep radiation doses as low as reasonably achievable, (ALARA). Individualized dose reduction techniques using automated exposure control or adjustment of mA and/or kV according to the patient size were employed. FINDINGS: Contrast is identified in the thecal space. There is mild diffuse degenerative disc disease. There is marked degenerative disc disease and endplate change at L5-S1. L3-4: There is facet hypertrophy and a broad-based disc bulge. There is mild bilateral neural foraminal stenosis without central stenosis. L4-5: There is facet hypertrophy and a disc bulge. There is mild central canal and bilateral neural foraminal stenosis. L5-S1: There is facet hypertrophy and a broad-based disc bulge. There is moderate central canal stenosis. Vacuum phenomenon is noted. There is moderate bilateral neural foraminal stenosis. Procedure Note Orin Torres MD - 09/23/[address] WITH CONTRAST - POST MYELOGRAM; 09/23/2022 12:49 PM HISTORY: Chronic lumbar back pain. PROCEDURE: After the patient's myelogram, axial images were obtained through the spine by computed tomography. Sagittal reconstruction images were performed. This study was performed with techniques to keep radiation doses as low as reasonably achievable, (ALARA). Individualized dose reduction techniques using automated exposure control or adjustment of mA and/or kV according to the patient size were employed. FINDINGS: Contrast is identified in the thecal space. There is mild diffuse degenerative disc disease. There is marked degenerative disc disease and endplate change at L5-S1. L3-4: There is facet hypertrophy and a broad-based disc bulge. There is mild bilateral neural foraminal stenosis without central stenosis. L4-5: There is facet hypertrophy and a disc bulge. There is mild central canal and bilateral neural foraminal stenosis. L5-S1: There is facet hypertrophy and a broad-based disc bulge. There is moderate central canal stenosis. Vacuum phenomenon is noted. There is moderate bilateral neural foraminal stenosis. IMPRESSION: Degenerative disc disease as detailed above. THORACIC CT WITH CONTRAST - POST MYELOGRAM; 09/23/2022 12:49 PM HISTORY: Chronic thoracic back pain. PROCEDURE: After the patient's myelogram, axial images were obtained through the spine by computed tomography. Sagittal reconstruction images were performed. This study was performed with techniques to keep radiation doses as low as reasonably achievable, (ALARA). Individualized dose reduction techniques using automated exposure control or adjustment of mA and/or kV according to the patient size were employed. FINDINGS: Contrast is identified in the thecal space. There is mild diffuse degenerative disc disease. There is no central canal stenosis. There is no subluxation or acute fracture. IMPRESSION: Degenerative disc disease as detailed above. No central canal stenosis. Images reviewed, interpreted, and dictated by Manuel Torres MD Jessica Horowitz APRN IMG CT ORDERABLES Final Resu lt * CT cervical spine without contrast (09/23/2022 12:42 PM EDT) Anatomical Region Laterality Modality C-spine, T-spine, Neck Computed Tomography (CT) 09/23/2022 1:24 PM EDT Impressions 09/23/2022 1:52 PM EDT Degenerative and postoperative changes as detailed. Abnormal alignment as outlined above. Mild cord impingement C6-7 with mild spinal stenosis and moderate right neural foraminal narrowing. Moderate bilateral neural foraminal narrowing C4-5. Narrative 09/23/2022 1:[address] CERVICAL SPINE WITH INTRATHECAL CONTRAST HISTORY: Prior neck surgery FINDINGS: No prior exams. Exam was performed after the patient received intrathecal contrast via myelography. No prior exams for comparison. This study was performed with techniques to keep radiation doses as low as reasonably achievable (ALARA). Individualized dose reduction techniques using automated exposure control or adjustment of mA and/or kV according to the patient's size were employed. There has been posterior fusion from C3 through C5. There has been anterior fusion at C3 and C4. No hardware complications are identified. The C2-3 disc appears relatively well maintained. There is 4 mm of anterolisthesis of C3 on C4 and 4 mm of anterolisthesis of C4 on C5. There is 2 mm of anterolisthesis of C5 on C6. There is no cord impingement or spinal stenosis at the operated levels. The C5-C6 disc is moderately severely narrowed and the C6-7 disc is largely obliterated with mild retrolisthesis of C6 on C7 and irregularity of bony endplates with small erosions. There is disc bulge with mild flattening of the spinal cord at C6-7 and mild spinal stenosis. There is moderate right neural foraminal stenosis at C6-7. There is moderate bilateral neural foraminal stenosis at C4-5. Procedure Note Miranda Brock MD - 09/23/2022 CT CERVICAL SPINE WITH INTRATHECAL CONTRAST HISTORY: Prior neck surgery FINDINGS: No prior exams. Exam was performed after the patient received intrathecal contrast via myelography. No prior exams for comparison. This study was performed with techniques to keep radiation doses as low as reasonably achievable (ALARA). Individualized dose reduction techniques using automated exposure control or adjustment of mA and/or kV according to the patient's size were employed. There has been posterior fusion from C3 through C5. There has been anterior fusion at C3 and C4. No hardware complications are identified. The C2-3 disc appears relatively well maintained. There is 4 mm of anterolisthesis of C3 on C4 and 4 mm of anterolisthesis of C4 on C5. There is 2 mm of anterolisthesis of C5 on C6. There is no cord impingement or spinal stenosis at the operated levels. The C5-C6 disc is moderately severely narrowed and the C6-7 disc is largely obliterated with mild retrolisthesis of C6 on C7 and irregularity of bony endplates with small erosions. There is disc bulge with mild flattening of the spinal cord at C6-7 and mild spinal stenosis. There is moderate right neural foraminal stenosis at C6-7. There is moderate bilateral neural foraminal stenosis at C4-5. IMPRESSION: Degenerative and postoperative changes as detailed. Abnormal alignment as outlined above. Mild cord impingement C6-7 with mild spinal stenosis and moderate right neural foraminal narrowing. Moderate bilateral neural foraminal narrowing C4-5. 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 Impressions 09/23/2022 2:01 PM EDT Degenerative changes as above. Please see CT scan report. Films reviewed, interpreted, and dictated by Dr. Torres. Transcribed by Missy Nielsen PA-C. Narrative 09/23/2022 2:01 PM EDT CERVICAL, THORACIC, AND LUMBAR MYELOGRAM. HISTORY: Chronic pain throughout the entire spine and arms. ATTENDING PHYSICIAN: Dr. Torres PHYSICIAN FLIGHT CONTROLS ENGINEER: Missy Nielsen PA-C PROCEDURE: Informed consent was obtained. A time-out was performed, and the patient was prepped and draped in usual sterile fashion over the lumbar spine. Utilizing local anesthesia and direct fluoroscopic guidance, access to the thecal space was obtained at the L4-L5 level. 10 mL of Isovue M 300 was gently injected. Spot and overhead films were obtained. 20 total images were performed. FINDINGS: There is limited visualization of the cervical spine. Contrast is identified in the thecal space. Anterior and posterior cervical spinal fusion is noted. Diffuse degenerative disc disease is identified in the thoracic spine. There are 5 non rib-bearing lumbar vertebral bodies. Contrast is identified in the thecal space. There is diffuse degenerative disc disease in the lumbar spine. Marked disc space narrowing is identified at L5-S1. Flexion and extension views demonstrate no abnormal motion. There are extradural defects throughout the lumbar spine. FLUOROSCOPY TIME: 1.5 minutes. Procedure Note Orin Torres MD - 09/23/2022 CERVICAL, THORACIC, AND LUMBAR MYELOGRAM. HISTORY: Chronic pain throughout the entire spine and arms. ATTENDING PHYSICIAN: Dr. Torres PHYSICIAN FLIGHT CONTROLS ENGINEER: Missy Nielsen PA-C PROCEDURE: Informed consent was obtained. A time-out was performed, and the patient was prepped and draped in usual sterile fashion over the lumbar spine. Utilizing local anesthesia and direct fluoroscopic guidance, access to the thecal space was obtained at the L4-L5 level. 10 mL of Isovue M 300 was gently injected. Spot and overhead films were obtained. 20 total images were performed. FINDINGS: There is limited visualization of the cervical spine. Contrast is identified in the thecal space. Anterior and posterior cervical spinal fusion is noted. Diffuse degenerative disc disease is identified in the thoracic spine. There are 5 non rib-bearing lumbar vertebral bodies. Contrast is identified in the thecal space. There is diffuse degenerative disc disease in the lumbar spine. Marked disc space narrowing is identified at L5-S1. Flexion and extension views demonstrate no abnormal motion. There are extradural defects throughout the lumbar spine. FLUOROSCOPY TIME: 1.5 minutes. IMPRESSION: Degenerative changes as above. Please see CT scan report. Films reviewed, interpreted, and dictated by Dr. Torres. Transcribed by Missy Nielsen PA-C. 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
--- OUTSIDE RECORDS SUMMARY | 2024-11-21 15:13 | XMS_ITS | Encounter Summary ---
Author Organization [facility] ([place], [place], [place], [place]) Address [address] [place] [address] Care Team Providers Care Spreader Operator Name Role Phone [facility], Provider Not In The System Primary Care Provider Unavailable Encounter Details Date Type Department Care Team (Late st Contact Info) Description 12/17/2019 Transcribed Document [facility] Family Medicine [address] [place] [address] ProviderFer MD [address], [place] [address] Social History Tobacco Use Types Packs/Day Years Used Date Smoking Tobacco: Never Assessed Comments Unknown Sex and Gender Information Value Date Recorded Sex Assigned at Female 11/03/2021 8:12 PM CDT Legal Sex Female 8:12 PM CDT Gender Identity Female 11/03/2021 8:12 PM CDT Sexual Orientation Not on file documented as of this encounter Miscellaneous Notes * Cerner Conversion Note - Fer ProviderMD - 12/17/2019 12:34 PM CDT [facility] [place] [address] NASRIN MAY :1970 Visit Time:12/14/2019 Your Visit Summary Your Care Team Admitting Physician - ALEX THAKUR MD-SNU Attending Physician - ALEX THAKUR MD-SNU Primary Care Physician - DEBORAH GUARDADO (REF[facility] Referring Physician - ALEX THAKUR MD-SNU PHY, NONE Your Diagnosis Cervical disc disorder with radiculopathy, Cervical disc disorder with radiculopathy, unspecified cervical region, Cervical disc disorder with radiculopathy, unspecified cervical region Discharge Vitals Temperature 36.7 ??C Heart Rate (Monitored) 78 Respiratory Rate 17 Blood Pressure 109/77 What to do next Instructions From Your Care Team Diet after Discharge: Resume usual diet as tolerated Activity after Discharge: No strenuous activity Lifting Restrictions: No heavy lifting over 10 pounds Weight Bearing: Full weight bearing Driving after Discharge: Do not drive Showering/Bathing: May shower, No tub bathing, soaking or swimming; Do not allow water to hit directly on incision Wound/Incision Care after Discharge: Keep operative site/wound site clean and dry, Change dressing with dry dressing daily and as needed Medical Equipment for Home Use: Home Health Services: [facility]-- Community Services: Discharge Activity: don collar when up and about, Discharge Activity: No heavy lifting over 10 lbs Diet: Discharge Diet: Resume usual diet as tolerated Follow-Up Appointments Follow Up with ALEX THAKUR When 01/17/2020 02:15 AM EDT Comments Please go to [facility] at 1:30 for X-rays prior to your appointment Where: [address] [place], [place] [id number] [facility] (1) Follow Up with ALEX THAKUR When 12/26/2019 11:00 AM EDT Comments Appointment has been made for staple removal/wound chek Where: [address] [place], [place] [id number] [facility] (1) Medications What How Much When Instructions Next Dose acetaminophen-oxyCODONE (Percocet 5/ 325 oral tablet) 1 Tablet(s) Oral Every 6 Hours as needed for for pain 2:23pm 8 cyclobenzaprine (cyclobenzaprine 10 mg oral tablet) 1 Tablet(s) Oral Three Times A Day as needed for as needed for muscle spasms Anytime needed atenolol (atenolol 25 mg oral tablet) 1 Tablet(s) Oral Every Day 811 AM FLUoxetine 20 Milligram(s) Oral Every Day 8/11 AM hydroCHLOROthiazide (hydroCHLOROthiazide 12.5 mg oral tablet) 1 Tablet(s) Oral Every Day 8 AM mirtazapine 7.5 Milligram(s) Oral At Bedtime 8 AM omeprazole (omeprazole 20 mg oral delayed release capsule) 1 Capsule(s) Oral Every Day before a meal 8 AM Take your medications faithfully. Do NOT skip medication. Do NOT stop taking medications without the direction of a physician. Carry a list of your medications with you at all times, and take this medication list with you to your first follow up visit. Report any side effects. Avoid herbal remedies unless discussed with your physician. As part of your treatment plan, your physician may have prescribed a limited course of a controlled substance. This medication may be given to help people with moderate or severe pain or for other medical conditions, but there are risks involved with treatment. Common side effects may include nausea, constipation, drowsiness, sweating, itching, dry mouth, and rash. More serious side effects may include cognitive and motor impairment, like problems with thinking, concentrating, alertness, and movement (e.g. slowed reflexes), and driving and operating heavy machinery can be dangerous. It is important for you to talk to your physician if you have these side effects or questions. These controlled substances can produce physical dependence and be habit-forming if taken for an extended period of time, which means that the body has gotten used to them and may experience withdrawal symptoms if they are abruptly stopped. Withdrawal symptoms can include runny nose, sweating, goose bumps, diarrhea, abdominal cramping, rapid heartbeat, difficulty sleeping, and nervousness. Please dispose of unused and medications per your retail pharmacy guidance. Allergies No Known Allergies Immunizations This Visit No Immunizations Found Education Materials Wound Infection A wound infection happens when germs start to grow in a wound. Germs that cause wound infections are most often bacteria. Other types of infections can occur as well. An infection can cause the wound to break open. Wound infections need treatment. If a wound infection is not treated, problems can happen. What are the causes? Most often caused by germs (bacteria) that grow in a wound. ??? Other germs, such as yeast and funguses, can also cause wound infections. What increases the risk? Having a weak body defense system (immune system). ??? Having diabetes. ??? Taking certain medicines (steroids) for a long time. ??? Smoking. ??? Being an older person. ??? Being overweight. ??? Taking certain medicines for cancer treatment. What are the signs or symptoms? Having more redness, swelling, or pain at the wound site. ??? Having more blood or fluid at the wound site. ??? A bad smell coming from a wound or bandage (dressing). ??? Having a fever. ??? Feeling very tired. ??? Having warmth at or around the wound. ??? Having pus at the wound site. How is this treated? This condition is most often treated with an antibiotic medicine. ? The infection should improve 24???48 hours after you start antibiotics. ? After 24???48 hours, redness around the wound should stop spreading. The wound should also be less painful. Follow these instructions at home: Medicines ??? Take or apply [id number]-[id number] and prescription medicines only as told by your doctor. ??? If you were prescribed an antibiotic medicine, take or apply it as told by your doctor. Do not stop using the antibiotic even if you start to feel better. Wound care ??? Clean the wound each day, or as told by your doctor. ? Wash the wound with mild soap and water. ? Rinse the wound with water to remove all soap. ? Pat the wound dry with a clean towel. Do not rub it. ??? Follow instructions from your doctor about how to take care of your wound. Make sure you: ? Wash your hands with soap and water before and after you change your bandage. If you cannot use soap and water, use hand express clerk. ? Change your bandage as told by your doctor. ? Leave stitches (sutures), skin glue, or skin tape (adhesive) strips in place if your wound has been closed. They may need to stay in place for 2 weeks or longer. If tape strips get loose and curl up, you may trim the loose edges. Do not remove tape strips completely unless your doctor says it is okay. Some wounds are left open to heal on their own. ??? Check your wound every day for signs of infection. Watch for: ? More redness, swelling, or pain. ? More fluid or blood. ? Warmth. ? Pus or a bad smell. General instructions ??? Keep the bandage dry until your doctor says it can be removed. ??? Do not take baths, swim, or use a hot tub until your doctor approves. Ask your doctor if you may take showers. You may only be allowed to take sponge baths. ??? Raise (elevate) the injured area above the level of your heart while you are sitting or lying down. ??? Do not scratch or pick at the wound. ??? Keep all follow-up visits as told by your doctor. This is important. Contact a doctor if: ??? Medicine does not help your pain. ??? You have more redness, swelling, or pain around your wound. ??? You have more fluid or blood coming from your wound. ??? Your wound feels warm to the touch. ??? You have pus coming from your wound. ??? You notice a bad smell coming from your wound or your bandage. ??? Your wound that was closed breaks open. Get help right away if: ??? You have a red streak going away from your wound. ??? You have a fever. Summary ??? A wound infection happens when germs start to grow in a wound. ??? This condition is usually treated with an antibiotic medicine. ??? Follow instructions from your doctor about how to take care of your wound. ??? Contact a doctor if your wound infection does not start to get better in 24???48 hours, or your symptoms get worse. ??? Keep all follow-up visits as told by your doctor. This is important. This information is not intended to replace advice given to you by your health care provider. Make sure you discuss any questions you have with your health care provider. Document Released: 02/01/2009 Document Revised: 12/05/2018 Document Reviewed: 12/05/2018 [employer] Patient Education ?? 2020 [employer] [facility], Adult, Care After This sheet gives you information about how to care for yourself after your procedure. Your doctor may also give you more specific instructions. If you have problems or questions, contact your doctor. Follow these instructions at home: Medicines ??? Take qqbo-cmi-dhybxpr and prescription medicines only as told by your doctor. These include any medicines for pain or blood-thinning medicines (anticoagulants). ??? If you were prescribed an antibiotic medicine, take it as told by your doctor. Do not stop taking the antibiotic even if you start to feel better. ??? Do not drive for 24 hours if you were given a medicine to help you relax (sedative) during your procedure. ??? Do not drive or use heavy machinery while taking prescription pain medicine. If you have a brace: ??? Wear the brace as told by your doctor. Take it off only as told by your doctor. ??? Keep the brace clean. Managing pain, stiffness, and swelling ??? If directed, put ice on the surgery area: ? If you have a removable brace, take it off as told by your doctor. ? Put ice in a plastic bag. ? Place a towel between your skin and the bag. ? Leave the ice on for 20 minutes, 2???3 times a day. Surgery cut care ??? Follow instructions from your doctor about how to take care of your cut from surgery (incision). Make sure you: ? Wash your hands with soap and water before you change your bandage (dressing). If you cannot use soap and water, use hand express clerk. ? Change your bandage as told by your doctor. ? Leave stitches (sutures), skin glue, or skin tape (adhesive) strips in place. They may need to stay in place for 2 weeks or longer. If tape strips get loose and curl up, you may trim the loose edges. Do not remove tape strips completely unless your doctor says it is okay. ??? Keep your cut from surgery clean and dry. ? Do not take baths, swim, or use a hot tub until your doctor says it is okay. ? Ask your doctor if you can take showers. You may only be allowed to take sponge baths. ??? Every day, check your cut from surgery and the area around it for: ? More redness, swelling, or pain. ? Fluid or blood. ? Warmth. ? Pus or a bad smell. ??? If you have a drain tube, follow instructions from your doctor about caring for it. Do not take out the drain tube or any bandages unless your doctor says it is okay. Physical activity ??? Rest and protect your back as much as possible. ??? Follow instructions from your doctor about how to move. Use good posture to help your spine heal. ??? Do not lift anything that is heavier than 8 lb (3.6 kg), or the limit that you are told, until your doctor says that it is safe. ??? Do not twist or bend at the waist until your doctor says it is okay. ??? It is best if you: ? Do not make pushing and pulling motions. ? Do not sit or lie down in the same position for a long time. ? Do not raise your hands or arms above your head. ??? Return to your normal activities as told by your doctor. Ask your doctor what activities are safe for you. Rest and protect your back as much as you can. ??? Do not start to exercise until your doctor says it is okay. Ask your doctor what kinds of exercise you can do to make your back stronger. General instructions ??? To prevent blood clots and lessen swelling in your legs: ? Wear compression stockings as told. ? Walk one or more times every few hours as told by your doctor. ??? Do not use any products that contain nicotine or tobacco, such as cigarettes and e-cigarettes. These can delay bone healing. If you need help quitting, ask your doctor. ??? To prevent or treat constipation while you are taking prescription pain medicine, your doctor may suggest that you: ? Drink enough fluid to keep your pee (urine) pale yellow. ? Take hddl-gha-prwullf or prescription medicines. ? Eat foods that are high in fiber. These include fresh fruits and vegetables, whole grains, and beans. ? Limit foods that are high in fat and processed sugars, such as fried and sweet foods. ??? Keep all follow-up visits as told by your doctor. This is important. Contact a doctor if: ??? Your pain gets worse. ??? Your medicine does not help your pain. ??? Your legs or feet get painful or swollen. ??? Your cut from surgery is more red, swollen, or painful. ??? Your cut from surgery feels warm to the touch. ??? You have: ? Fluid or blood coming from your cut from surgery. ? Pus or a bad smell coming from your cut from surgery. ? A fever. ? Weakness or loss of feeling (numbness) in your legs that is new or getting worse. ? Trouble controlling when you pee (urinate) or poop (have a bowel movement). ??? You feel sick to your stomach (nauseous). ??? You throw up (vomit). Get help right away if: ??? Your pain is very bad. ??? You have chest pain. ??? You have trouble breathing. ??? You start to have a cough. These symptoms may be an emergency. Do not wait to see if the symptoms will go away. Get medical help right away. Call your local emergency services (911 in the [place] Do not drive yourself to the hospital. Summary ??? After the procedure, it is common to have pain in your back and pain by your surgery cut(s). ??? Icing and pain medicines may help to control the pain. Follow directions from your doctor. ??? Rest and protect your back as much as possible. Do not twist or bend at the waist. ??? Get up and walk one or more times every few hours as told by your doctor. This information is not intended to replace advice given to you by your health care provider. Make sure you discuss any questions you have with your health care provider. Document Released: 08/19/2011 Document Revised: 08/16/2019 Document Reviewed: 08/09/2017 [employer] Patient Education ?? 2020 [employer]. acetaminophen and oxycodone (a SEET a MIN oh fen and OX i KOE done) Endocet 10/325, Endocet 2.5/325, Endocet 5/325, Endocet 7.5/325, Nalocet, Percocet, Primlev What is the most important information I should know about acetaminophen and oxycodone? MISUSE OF OPIOID MEDICINE CAN CAUSE ADDICTION, OVERDOSE, OR . Keep the medication in a place where others cannot get to it. An overdose of acetaminophen can damage your liver or cause . Call your doctor at once if you have pain in your upper stomach, loss of appetite, dark urine, or jaundice (yellowing of your skin or eyes). Taking opioid medicine during may cause life-threatening withdrawal symptoms in the . Fatal side effects can occur if you use opioid medicine with alcohol, or with other drugs that cause drowsiness or slow your breathing. Stop taking this medicine and call your doctor right away if you have skin redness or a rash that spreads and causes blistering and peeling. What is acetaminophen and oxycodone? Acetaminophen and oxycodone is a combination medicine used to relieve moderate to severe pain. Acetaminophen and oxycodone may also be used for purposes not listed in this medication guide. What should I discuss with my healthcare provider before taking acetaminophen and oxycodone? You should not use this medicine if you are allergic to acetaminophen or oxycodone, or if you have: ?? severe asthma or breathing problems; or ?? a blockage in your stomach or intestines. Tell your doctor if you have ever had: ?? breathing problems, sleep apnea; ?? liver disease; ?? a drug or alcohol addiction; ?? kidney disease; ?? a head injury or seizures; ?? urination problems; or ?? problems with your thyroid, pancreas, or gallbladder. If you use opioid medicine while you are , your baby could become dependent on the drug. This can cause life-threatening withdrawal symptoms in the baby after it is born. Babies born dependent on opioids may need medical treatment for several weeks. Do not breastfeed. This medicine can pass into breast milk and cause drowsiness, breathing problems, or in a nursing baby. How should I take acetaminophen and oxycodone? Follow all directions on your prescription label. Never take this medicine in larger amounts, or for longer than prescribed. An overdose can damage your liver or cause . Tell your doctor if you feel an increased urge to use more of this medicine. Never share this medicine with another person, especially someone with a history of drug abuse or addiction. MISUSE CAN CAUSE ADDICTION, OVERDOSE, OR . Keep the medicine in a place where others cannot get to it. Selling or giving away acetaminophen and oxycodone is against the law. Measure liquid medicine carefully. Use the dosing syringe provided, or use a medicine dose-measuring device (not a kitchen spoon). If you need surgery or medical tests, tell the doctor ahead of time that you are using this medicine. You should not stop using this medicine suddenly. Follow your doctor's instructions about tapering your dose. Store at room temperature away from moisture and heat. Keep track of your medicine. You should be aware if anyone is using it improperly or without a prescription. Do not keep leftover opioid medication. Just one dose can cause in someone using this medicine accidentally or improperly. Ask your pharmacist where to locate a drug take-back disposal program. If there is no take-back program, flush the unused medicine down the toilet. What happens if I miss a dose? Since this medicine is used for pain, you are not likely to miss a dose. Skip any missed dose if it is almost time for your next dose. Do not use two doses at one time. What happens if I overdose? Seek emergency medical attention or call the Poison Help line at . An overdose of acetaminophen and oxycodone can be fatal. The first signs of an acetaminophen overdose include loss of appetite, nausea, vomiting, stomach pain, sweating, and confusion or weakness. Later symptoms may include pain in your upper stomach, dark urine, and yellowing of your skin or the whites of your eyes. Overdose can also cause severe muscle weakness, pinpoint pupils, very slow breathing, extreme drowsiness, or coma. What should I avoid while taking acetaminophen and oxycodone? Avoid driving or operating machinery until you know how this medicine will affect you. Dizziness or drowsiness can cause falls, accidents, or severe injuries. Do not drink alcohol. Dangerous side effects or could occur. Ask a doctor or pharmacist before using any other medicine that may contain acetaminophen (sometimes abbreviated as APAP). Taking certain medications together can lead to a fatal overdose. What are the possible side effects of acetaminophen and oxycodone? Get emergency medical help if you have signs of an allergic reaction: hives; difficulty breathing; swelling of your face, lips, tongue, or throat. Opioid medicine can slow or stop your breathing, and may occur. A person caring for you should seek emergency medical attention if you have slow breathing with long pauses, blue colored lips, or if you are hard to wake up. In rare cases, acetaminophen may cause a severe skin reaction that can be fatal. This could occur even if you have taken acetaminophen in the past and had no reaction. Stop taking this medicine and call your doctor right away if you have skin redness or a rash that spreads and causes blistering and peeling. Call your doctor at once if you have: ?? noisy breathing, sighing, shallow breathing, breathing that stops during sleep; ?? a light-headed feeling, like you might pass out; ?? weakness, tiredness, fever, unusual bruising or bleeding; ?? confusion, unusual thoughts or behavior; ?? problems with urination; ?? liver problems--nausea, upper stomach pain, tiredness, loss of appetite, dark urine, alanna-colored stools, jaundice (yellowing of the skin or eyes); or ?? low cortisol levels-- nausea, vomiting, loss of appetite, dizziness, worsening tiredness or weakness. Seek medical attention right away if you have symptoms of serotonin syndrome, such as: agitation, hallucinations, fever, sweating, shivering, fast heart rate, muscle stiffness, twitching, loss of coordination, nausea, vomiting, or diarrhea. Serious side effects may be more likely in older adults and those who are overweight, malnourished, or debilitated. Long-term use of opioid medication may affect fertility (ability to have children) in men or women. It is not known whether opioid effects on fertility are permanent. Common side effects include: ?? dizziness, drowsiness, feeling tired; ?? feelings of extreme happiness or sadness; ?? nausea, vomiting, stomach pain; ?? constipation; or ?? headache. This is not a complete list of side effects and others may occur. Call your doctor for medical advice about side effects. You may report side effects to FDA at 5-901-FJY-0068. What other drugs will affect acetaminophen and oxycodone? You may have breathing problems or withdrawal symptoms if you start or stop taking certain other medicines. Tell your doctor if you also use an antibiotic, antifungal medication, heart or blood pressure medication, seizure medication, or medicine to treat HIV or hepatitis C. Opioid medication can interact with many other drugs and cause dangerous side effects or . Be sure your doctor knows if you also use: ?? cold or allergy medicines, bronchodilator asthma/COPD medication, or a diuretic ('water pill'); ?? medicines for motion sickness, irritable bowel syndrome, or overactive bladder; ?? other narcotic medications--opioid pain medicine or prescription cough medicine; ?? a sedative like Valium--diazepam, alprazolam, lorazepam, Xanax, Klonopin, Versed, and others; ?? drugs that make you sleepy or slow your breathing--a sleeping pill, muscle relaxer, medicine to treat mood disorders or mental illness; ?? drugs that affect serotonin levels in your body--a stimulant, or medicine for depression, Parkinson's disease, migraine headaches, serious infections, or nausea and vomiting. This list is not complete. Other drugs may affect acetaminophen and oxycodone, including prescription and gobn-fbe-axtjzln medicines, vitamins, and herbal products. Not all possible interactions are listed here. Where can I get more information? Your doctor or pharmacist can provide more information about acetaminophen and oxycodone. Remember, keep this and all other medicines out of the reach of children, never share your medicines with others, and use this medication only for the indication prescribed. Every effort has been made to ensure that the information provided by [employer] is accurate, up-to-date, and complete, but no guarantee is made to that effect. Drug information contained herein may be time sensitive. [employer] information has been compiled for use by healthcare practitioners and consumers in the [place] and therefore [employer] does not warrant that uses outside of the [place] are appropriate, unless specifically indicated otherwise. [employer] drug information does not endorse drugs, diagnose patients or recommend therapy. [employer] drug information is an informational resource designed to assist licensed healthcare practitioners in caring for their patients and/or to serve consumers viewing this service as a supplement to, and not a substitute for, the expertise, skill, knowledge and judgment of healthcare practitioners. The absence of a warning for a given drug or drug combination in no way should be construed to indicate that the drug or drug combination is safe, effective or appropriate for any given patient. [employer] does not assume any responsibility for any aspect of healthcare administered with the aid of information [employer] provides. The information contained herein is not intended to cover all possible uses, directions, precautions, warnings, drug interactions, allergic reactions, or adverse effects. If you have questions about the drugs you are taking, check with your doctor, nurse or pharmacist. Copyright 9363-8474 [employer] Version: .. Revision Date: 05/30/2019. cyclobenzaprine (mirna moore) Amrix, Comfort Pac with Cyclobenzaprine, Fexmid What is the most important information I should know about cyclobenzaprine? You should not use cyclobenzaprine if you have a thyroid disorder, heart block, congestive heart failure, a heart rhythm disorder, or you have recently had a heart attack. Do not use cyclobenzaprine if you have taken an MAO inhibitor in the past 14 days, such as isocarboxazid, linezolid, phenelzine, rasagiline, selegiline, or tranylcypromine. What is cyclobenzaprine? Cyclobenzaprine is a muscle relaxant. It works by blocking nerve impulses (or pain sensations) that are sent to your brain. Cyclobenzaprine is used together with rest and physical therapy to relieve muscle spasms caused by painful conditions such as an injury. Cyclobenzaprine may also be used for purposes not listed in this medication guide. What should I discuss with my healthcare provider before taking cyclobenzaprine? You should not use cyclobenzaprine if you are allergic to it, or if you have: ?? a thyroid disorder; ?? heart block, heart rhythm disorder, congestive heart failure; or ?? if you have recently had a heart attack. Cyclobenzaprine is not approved for use by anyone younger than 15 years old. Do not use cyclobenzaprine if you have taken an MAO inhibitor in the past 14 days. A dangerous drug interaction could occur. MAO inhibitors include isocarboxazid, linezolid, phenelzine, rasagiline, selegiline, and tranylcypromine. Some medicines can interact with cyclobenzaprine and cause a serious condition called serotonin syndrome. Be sure your doctor knows if you also take stimulant medicine, opioid medicine, herbal products, or medicine for depression, mental illness, Parkinson's disease, migraine headaches, serious infections, or prevention of nausea and vomiting. Ask your doctor before making any changes in how or when you take your medications. Tell your doctor if you have ever had: ?? liver disease; ?? glaucoma; ?? enlarged prostate; or ?? problems with urination. It is not known whether this medicine will harm an unborn baby. Tell your doctor if you are or plan to become . It may not be safe to breast-feed while using this medicine. Ask your doctor about any risk. Older adults may be more sensitive to the effects of this medicine. How should I take cyclobenzaprine? Follow all directions on your prescription label and read all medication guides or instruction sheets. Your doctor may occasionally change your dose. Use the medicine exactly as directed. Cyclobenzaprine is usually taken once daily for only 2 or 3 weeks. Follow your doctor's dosing instructions very carefully. Swallow the capsule whole and do not crush, chew, break, or open it. Take the medicine at the same time each day. Call your doctor if your symptoms do not improve after 3 weeks, or if they get worse. Store at room temperature away from moisture, heat, and light. What happens if I miss a dose? Take the medicine as soon as you can, but skip the missed dose if it is almost time for your next dose. Do not take two doses at one time. What happens if I overdose? Seek emergency medical attention or call the Poison Help line at . An overdose of cyclobenzaprine can be fatal. Overdose symptoms may include severe drowsiness, vomiting, fast heartbeats, tremors, agitation, or hallucinations. What should I avoid while taking cyclobenzaprine? Avoid driving or hazardous activity until you know how this medicine will affect you. Your reactions could be impaired. Avoid drinking alcohol. Dangerous side effects could occur. What are the possible side effects of cyclobenzaprine? Get emergency medical help if you have signs of an allergic reaction: hives; difficult breathing; swelling of your face, lips, tongue, or throat. Stop using cyclobenzaprine and call your doctor at once if you have: ?? fast or irregular heartbeats; ?? chest pain or pressure, pain spreading to your jaw or shoulder; or ?? sudden numbness or weakness (especially on one side of the body), slurred speech, balance problems. Seek medical attention right away if you have symptoms of serotonin syndrome, such as: agitation, hallucinations, fever, sweating, shivering, fast heart rate, muscle stiffness, twitching, loss of coordination, nausea, vomiting, or diarrhea. Serious side effects may be more likely in older adults. Common side effects may include: ?? drowsiness, tiredness; ?? headache, dizziness; ?? dry mouth; or ?? upset stomach, nausea, constipation. This is not a complete list of side effects and others may occur. Call your doctor for medical advice about side effects. You may report side effects to FDA at 1-599-RNQ-2501. What other drugs will affect cyclobenzaprine? Using cyclobenzaprine with other drugs that make you drowsy can worsen this effect. Ask your doctor before using opioid medication, a sleeping pill, a muscle relaxer, or medicine for anxiety or seizures. Tell your doctor about all your other medicines, especially: ?? bupropion (Zyban, for smoking cessation); ?? meperidine; ?? tramadol; ?? verapamil; ?? cold or allergy medicine that contains an antihistamine (Benadryl and others); ?? medicine to treat Parkinson's disease; ?? medicine to treat excess stomach acid, stomach ulcer, motion sickness, or irritable bowel syndrome; ?? medicine to treat overactive bladder; or ?? bronchodilator asthma medication. This list is not complete. Other drugs may affect cyclobenzaprine, including prescription and nzrg-pnl-syyskok medicines, vitamins, and herbal products. Not all possible drug interactions are listed here. Where can I get more information? Your pharmacist can provide more information about cyclobenzaprine. Remember, keep this and all other medicines out of the reach of children, never share your medicines with others, and use this medication only for the indication prescribed. Every effort has been made to ensure that the information provided by [employer] ('[employer]') is accurate, up-to-date, and complete, but no guarantee is made to that effect. Drug information contained herein may be time sensitive. [employer] information has been compiled for use by healthcare practitioners and consumers in the [place] and therefore [employer] does not warrant that uses outside of the [place] are appropriate, unless specifically indicated otherwise. [employer] drug information does not endorse drugs, diagnose patients or recommend therapy. [employer] drug information is an informational resource designed to assist licensed healthcare practitioners in caring for their patients and/or to serve consumers viewing this service as a supplement to, and not a substitute for, the expertise, skill, knowledge and judgment of healthcare practitioners. The absence of a warning for a given drug or drug combination in no way should be construed to indicate that the drug or drug combination is safe, effective or appropriate for any given patient. [employer] does not assume any responsibility for any aspect of healthcare administered with the aid of information [employer] provides. The information contained herein is not intended to cover all possible uses, directions, precautions, warnings, drug interactions, allergic reactions, or adverse effects. If you have questions about the drugs you are taking, check with your doctor, nurse or pharmacist. Copyright 5886-8596 [employer] Version: 5.01. Revision Date: 02/01/2018. Emergency Awareness and Preventative Care STROKE is an EMERGENCY Every Minute Counts Act FAST and Check for these signs: FACE Does the face look uneven? ARM Does one arm drift down? SPEECH Does their speech sound strange? TIME Call at any sign of stroke Stroke Risk Factors Atrial Fibrillation (irregular heartbeat) Diabetes Family history of stroke Heart Disease Heavy alcohol use High Blood Pressure High Cholesterol Physical inactivity and obesity Smoking Cigarette Smoking The facts are clear, cigarette smoking will shorten your life. Smoking can cause many illnesses along the way. As a healthcare provider, we recommend that you stop smoking. Assistance with quitting is available by contacting 2-495-YZDB-NOW. This is a free resource providing counseling, support, and referral. Or you may contact your personal physician. National Suicide Prevention Lifeline: The National Suicide Prevention Lifeline is a national network of local crisis centers that provides free and confidential emotional support to people in suicidal crisis or emotional distress 24 hours a day, 7 days a week. Don't Wait! Stop a Heart Attack Before it Starts What is a heart attack? A heart attack is damage or to a part of the heart from severely decreased or lack of blood flow to the heart. Over time, arteries can become narrow from the buildup of fat and cholesterol, which is called plaque. The plaque can rupture causing a blood clot to form. When the blood clot forms, the artery can become severely narrowed or completely blocked, causing a heart attack. Heart attack is the leading cause of in the [place]. 85% of muscle damage occurs within the first 2 hours. Delay in the recognition of heart attack symptoms increases the chances of . Know the early symptoms of a heart attack: Nausea Feeling of fullness in chest Jaw Pain Pain that travels down one or both arms Fatigue/being tired Anxiety Back Pain Chest pressure, squeezing, or discomfort Shortness of breath Sweating, or a cold sweat Feeling of impending doom There are unusual signs of a heart attack, too! Women, the elderly, and diabetics may present with atypical symptoms: Fainting/dizziness Weakness Confusion Risk Factors for a Heart Attack Some heart disease risk factors, such as age and family history, cannot be changed. Others, like smoking and lack of exercise, can be changed. Smoking High Cholesterol High Blood Pressure Family History Obesity Age Gender (Males are at higher risk) Lack of Exercise Diabetes Diet Stress Excessive Alcohol Intake If you or someone you know is experiencing the signs and symptoms of a heart attack, DON???T DELAY. Call immediately and seek help. If someone collapses, perform CPR! Do not attempt to drive if you are having symptoms of heart attack. Hands-Only CPR Why Hands-Only CPR? Hands-Only CPR has been shown to be as effective as conventional CPR for cardiac arrests that occur outside of a hospital. Survival depends on immediately receiving CPR from someone nearby. How do you perform Hands-Only CPR? There are two easy steps: Call if you see a teen or adult collapse Push hard and fast in the center of the chest at a beat of 100 beats per minute. Save a life! 4 WAYS TO GET AHEAD OF SEPSIS SEPSIS is a MEDICAL EMERGENCY. Time matters! Infections put you and your family at risk for a life-threatening condition called sepsis. Sepsis is the body's extreme response to an infection. It is life-threatening, and without timely treatment, sepsis can rapidly lead to tissue damage, organ failure, and . Sepsis happens when an infection you already have-in your skin, lungs, urinary tract or somewhere else-triggers a chain reaction throughout your body. 1 PREVENT INFECTIONS Take good care of chronic conditions. Talk to your doctor about getting the recommended vaccines. 2 PRACTICE GOOD HYGIENE Wash your hands frequently. Keep cuts or open sores clean and covered until they are healed. 3 KNOW THE SYMPTOMS Confusion or disorientation Shortness of breath High heart rate Fever, shivering, or feeling very cold Extreme pain or discomfort Clammy or sweaty skin 4 ACT FAST Get medical care IMMEDIATELY if you suspect sepsis or if you have an infection that is not getting better or is getting worse. To learn more about sepsis and how to prevent infections, visit www.cdc.gov/sepsis. Test Results Laboratory or Other Results This Visit (last charted value for your 12/14/2019 visit) Hematology 12/12/2019 2:02 PM WBC: 10.6 K/uL -- Normal range between ( 4.5 and 10.5 ) RBC: 4.35 Million/uL -- Normal range between ( 3.93 and 5.22 ) Hct: 41.0 % -- Normal range between ( 34.1 and 44.9 ) Hgb: 14.3 g/dL -- Normal range between ( 11.2 and 15.7 ) Platelet Count: 193 K/uL -- Normal range between ( 163 and 369 ) MCH: 32.9 pg -- Normal range between ( 25.6 and 32.2 ) MCHC: 34.9 Gram/dL -- Normal range between ( 31.5 and 35.7 ) MCV: 94.3 fL -- Normal range between ( 79.0 and 94.8 ) Slide Review: No Eos %: 2.3 % -- Normal range between ( 0.0 and 7.0 ) Perkins #: 0.74 K/uL -- Normal range between ( 0.16 and 1.00 ) Eos #: 0.24 -- Normal range between ( 0.00 and 5.00 ) Perkins %: 7.0 % -- Normal range between ( 3.5 and 11.1 ) Baso %: 0.4 % -- Normal range between ( 0.0 and 2.0 ) Baso #: 0.04 -- Normal range between ( 0.00 and 2.00 ) RDW: 12.9 % -- Normal range between ( 11.7 and 14.9 ) Neut %: 71.2 % -- Normal range between ( 34.0 and 71.0 ) Neut #: 7.56 K/uL -- Normal range between ( 1.60 and 7.00 ) Lymph %: 19.1 % -- Normal range between ( 19.3 and 53.1 ) Lymph #: 2.02 K/uL -- Normal range between ( 1.00 and 3.50 ) MPV: 11.8 fL -- Normal range between ( 9.4 and 12.4 ) Urinalysis 12/12/2019 2:02 PM Ur RBC: 2-5 /HPF Urine Nitrite: Negative Urine Leukocyte Esterase: Large Urine Appearance: Clear Urine Glucose Dipstick: Negative Urine Blood Dipstick: Small Urine Type: U CleanCatch Urine Urobilinogen Dipstick: 0.2 EU/dL Urine Protein Dipstick: Negative Ur Bacteria: Trace Ur Squamous Epithelial Cells: 0-2 /HPF Urine Color: Yellow Ur WBC: 10-20 /HPF Urine Ketones Dipstick: Negative Urine pH Dipstick: 5.5 -- Normal range between ( 6.0 and 8.0 ) Urine Bilirubin Dipstick: Negative Urine Specific [place]: 1.010 -- Normal range between ( 1.005 and 1.030 ) Microbiology 12/12/2019 1:00 PM Novel Coronavirus 2019: Not Detected Blood Bank 12/14/2019 12:01 PM ABO/Rh (ECHO): O POS Antibody Screen: Negative ABSC 12/12/2019 2:02 PM ABO/Rh Repeat: O POS General Chemistry 12/12/2019 2:02 PM Creatinine Level: 0.90 mg/dL -- Normal range between ( 0.55 and 1.02 ) Sodium Level: 137 mmol/L -- Normal range between ( 136 and 146 ) Potassium Level: 4.1 mmol/L -- Normal range between ( 3.5 and 5.1 ) Chloride Level: 105 mmol/L -- Normal range between ( 102 and 112 ) Carbon Dioxide Level: 28 mmol/L -- Normal range between ( 21 and 32 ) Anion Gap: 8 -- Normal range between ( 9 and 20 ) Bun/Creatinine: 17.8 -- Normal range between ( 8.0 and 20.0 ) Calcium Level: 9.7 mg/dL -- Normal range between ( 8.4 and 10.1 ) eGFR : >60 mL/min/1.73m2 eGFR NonAfrican: >60 mL/min/1.73m2 Glucose Level: 97 mg/dL -- Normal range between ( 74 and 106 ) Blood Urea Nitrogen: 16 mg/dL -- Normal range between ( 7 and 22 ) Endocrinology 12/14/2019 11:07 AM HCG Urine POC: Negative Diagnostic Radiology 12/14/2019 4:[address] in OR: CR CT in OR Patient Name:NASRIN MYA I have received and understand this information and was given the opportunity to ask questions. Patient/Principal Database Developer Name: Patient/Principal Database Developer Signature: Relationship to Patient: Clinician/Hospital Principal Database Developer Signature: Date: Electronically signed by Interface, [facility] Conversion Sales Product Specialist Cerner at 08/23/2022 5:15 PM CDT documented in this encounter Plan of Treatment Not on file documented as of this encounter Visit Diagnoses Not on filedocumented in this encounter Care Teams Spreader Operator Relationship Specialty Start Date End Date [facility], Provider Not In The System, [place] [address] PCP - General 09/23/22 documented as of this encounter
--- OUTSIDE RECORDS SUMMARY | 2024-11-21 15:13 | XMS_ITS | Clinical Summary ---
Author Organization [facility] Address [address] [place] [address] Care Team Providers Care Manager Process Excellence Name Role Phone StoryLinda APRN Primary Care Provider [phone] Source Comments This information has been disclosed to you from confidential records protectedfrom disclosure by state law. You shall make no further disclosure of thisinformation without the specific, written, and informed release of theindividual to whom it pertains, or as otherwise permitted by law. A generalauthorization for the release of medical or other information is not sufficientfor the purposes of therelease of HIV test results or diagnoses. [id number] Social History Tobacco Use Types Packs/Day Years Used Date Smoking Tobacco: Never Assessed Comments Unknown Sex and Gender Information Value Date Recorded Sex Assigned at Not on file Legal Sex Female 10:14 AM EDT Gender Identity Not on file Sexual Orientation Not on file Plan of Treatment Health Maintenance Due Date Last Done Comments Abnormal Colonoscopy Follow Up 1971 Hepatitis C Screening (MyChart) 1971 Alcohol Misuse Screening 1989 Depression Screening 1989 HIV Screening 1989 Immunization: Hepatitis B (1 of 3 - 19+ 3-dose series) 1990 Cervical Cancer Screening/Pa p Smear (MyChart) 2001 Mammogram (MyChart) 2011 Cologuard (FIT-DNA) 2016 Colonoscopy 2016 Colorectal Cancer Screening (MyChart) 2016 Stool Testing (gFOBT) 2016 Immunization: DTaP/Tdap/Td ( 2 - Td or Tdap) 01/25/2018 01/26/2008 Immunization: Pneumococcal ( 1 of 1 - PCV) 2021 Immunization: Zoster (1 of 2) 2021 Immunization: COVID-19 ( - season) 2024 Immunization: Influenza (MyC cash) (#1) 2025 02/02/2019, 02/27/2018, 02/21/2017 Insurance MEDICAID [place] Care Teams Manager Process Excellence Relationship Specialty Start Date End Date Linda Vgoel APRN [address] [place] [address] PCP - General Family Medicine 12/15/23
--- OUTSIDE RECORDS SUMMARY | 2024-11-21 15:13 | XMS_ITS | Encounter Summary ---
Author Organization [facility] ([place], [place], [place], [place]) Address [address] [place] [address] Care Team Providers Care School Social Worker Name Role Phone [facility], Provider Not In The System Primary Care Provider Unavailable Encounter Details Date Type Department Care Team (Late st Contact Info) Description 12/15/2019 Transcribed Document [facility] [address] [place] [address] Mary Lou Driver MD [address] [place] [address] Social History Tobacco Use Types Packs/Day Years [...] Note - Mary Lou Driver MD - 12/15/2019 1:56 PM EDT Patient: NASRIN MAY Age: 49 years Sex: Female : 1970 Associated Diagnoses: None Author: MARY LOU DRIVER MD-INT Chief Complaint: Medical Management (EtOH use) s/p C3-C5 posterior laminectomy and fusion with lateral mass arthrodesis requested by Dr Robbins HPI: 49 Y/O wf Patient is followed [...] Last Charted Minimum Maximum Temp 98.4 (DEC 14 05:23) 97.7 (DEC 13 16:12) 99.4 (DEC 13 16:45) Mon HR 64 (DEC 14 05:23) 64 (DEC 14 05:23) 81 (DEC 13 16:12) Resp Rate 16 (DEC 14 05:23) 16 (DEC 13 16:12) H 29 (DEC 13 16:20) SBP 119 (DEC 14 05:23) 109 (DEC 13 21:33) H 182 (DEC 13 16:12) DBP 63 (DEC 14 05:23) L 57 (DEC 13 17:05) 86 (DEC 14 01:22) MAP 74 (DEC 14 05:23) 74 (DEC 14:23) 120 (DEC 13 16:12) SpO2 97 (DEC 14:) 96 (DEC 14 01:00) 100 (DEC 13 16:12) WD WN white WOman in no distress; pleasant, cooperative, good historian; nc/at, eomi, PEERL, pink conjunctiva, moist mucous membranes, no thyromegaly or cervical lymphadenopathy =expansion b/l without wheezes rales or rhonchi [...] Robbins HTN TOB & Etoh USE PLAN CIWA PROTOCOL Monitor HTN; add PRN's, hold [...] on filedocumented in this encounter Care Teams School Social Worker Relationship Specialty Start Date End Date [facility], Provider Not In The System, [place] [address] PCP - General 09/23/22 documented as of this encounter
--- OUTSIDE RECORDS SUMMARY | 2024-11-21 15:13 | XMS_ITS | Encounter Summary ---
Author Organization [employer] ([place], [place], [place], [place]) Address [address] [place] [address] Care Team Providers Care Smooth Plater Name Role Phone [facility], Provider Not In The System Primary Care Provider Unavailable Encounter Details Date Type Department Care Team (Late st Contact Info) Description 12/14/2019 Transcribed Document [facility] Neurology - [facility] [address] [id number] Jah Robbins Jr., MD [address] [place] [address] Social History Tobacco Use Types Packs/Day Years [...] - Jah Robbins Jr., MD - 12/14/2019 5:18 PM EDT DATE OF PROCEDURE: 12/14/2019 SURGEON: Jah Robbins Jr, MD PREOPERATIVE DIAGNOSIS: C4-C5 stenosis with instability causing cervical myelopathy. POSTOPERATIVE DIAGNOSIS: C4-C5 stenosis with instability causing cervical myelopathy. PROCEDURE PERFORMED: 1. Placement of C3 and C5 lateral mass screws with posterolateral lateral mass arthrodesis from C3-C5. 2. C3 through L5 laminectomy. 3. All of the above performed with [employer] neuronavigation and Airo intraoperative CT scan. SUPERVISOR FABRICATION AND ASSEMBLY: Estefany Merida PA-C. ANESTHESIA: General endotracheal anesthesia. ESTIMATED BLOOD LOSS: Less than 150 mL. COMPLICATIONS: None. SPECIMENS: Posterior epidural mass/ligament for permanent sectioning. DRAINS: 15-Jamaican round epidural ENRIQUE drain to bulb suction. CONDITION: Stable to PACU. INDICATION FOR PROCEDURE: Ms. May is 49 years old. In April 2017, I performed a C3-C4 anterior cervical diskectomy and fusion for myelopathy. She did well overall over the years. She comes back with a rapidly progressive myelopathy. I saw her in the office earlier in the week. I thought on imaging, she had instability at C4-C5 with cord signal change and enhancement in the posterior epidural region, which I thought was likely from spondylosis, but had a small concern that this could be infectious. I recommended surgery. I met with her prior to the operation today. She was stable. Indication, risks, and benefits were explained, and consent was signed for surgery. DESCRIPTION OF PROCEDURE: After informed consent was obtained, the patient was brought to the operating room. General endotracheal anesthesia was induced routinely. Once anesthetized, the Armstrong was affixed to the skull. She was turned prone on the operating table with torso resting on laminectomy rolls. Her arms were kept at her side. She was mummy-wrapped in a sheet and she was secured to bed with padded straps and tape. The Armstrong was affixed to the table per usual fashion. Neck was in the neutral position. Hair was clipped from the back of the head. A midline incision was planned. The neck, back, and the head were prepped and draped in usual fashion. Prophylactic antibiotics were given. We Steri-Stripped a reference array in the cervical thoracic region, took a scan for navigational purposes. Filmy localized the incision. Incision about 4 inches long was made with a scalpel. Bovie cautery was used to dissect down the fascia. Subperiosteal dissection was performed exposing the inferior C2, C3, C4, C5, the superior C6 lamina. It was apparent that the posterior elements especially the interlaminar space at C3-C4 were fused in areas. It was not a solid fusion mass but clearly these two bones were fused. The lateral masses were very dysplastic. The C5 lateral mass was easy to dissect out and discern. We obtained a nice wide exposure bilaterally, placed cerebellar retractors. Using anatomical landmarks, I drilled 1 mm medial to the midpoint of each lateral mass at C3, C4, and C5, and I used 12 and 14 mm drills pointing outward following the orientation of the lateral masses. I then tapped first on the right side. On the right side, the C4 lateral mass laterally was very thin and it essentially fractured. On the left side, I drilled the holes and tapped in a similar fashion. On the right, I placed a screw at C3 and then at C5. These were 12 mm screws and bone purchase was excellent. On the left, I placed a screw at C3 and C5. The C4 screw would not fit because the screw heads were too close together at C3 and C5, so essentially I had C3 and C5 lateral mass screws on both sides. It had good bony purchase. They were all 12 mm screws. I then removed the spinous process, C3, C4, C5, thinned out the lamina, completed the laminectomy. I left the ligamentum flavum at C2-C3 to try to give some posterior tension band support. I completed the inferior two-third of C3 laminectomy, C4 and C5. As expected, there was a very adherent dorsal epidural mass at C4-C5 that was causing some of the compression. This appeared to be very thickened ligamentum flavum rather than epidural abscess. We did send it for permanent specimen. I obtained a nice wide decompression. I was happy with the decompression. short pranav on each side and then placed set screws and then torqued the set screws on each side. We then took a scan which showed an appropriate appearing construct, good decompression and actually reduction of the spondylolisthesis at C4-C5. I decorticated the posterolateral elements from C3-C5 and laid allograft ViviGen and autograft bone from the laminectomy. I tunneled a 15-Jamaican round epidural ENRIQUE drain through a separate stab incision inferiorly. I placed a drain stitch at skin level and cut the drain to appropriate length and placed in the epidural region. I made sure hemostasis was meticulous and FloSeal was placed in each lateral area of the laminectomy and washed away. Muscle fascia, Mainor layer, and the dermis closed with interrupted Vicryl sutures and skin closed with cynthia. The bulb was fixed to the drain. The drain was functional. Dressing was applied. The patient was undraped. Armstrong was detached from the table. She was turned supine on the stretcher and the Armstrong was removed. I was present for all this. She ultimately went to the recovery room in good condition. Estefany Merida PA-C, assisted through the entire operation with tasks such as suctioning, soft tissue retraction, instrumentation placement, laminectomy, and wound closure. /[id number] Jah Robbins Jr, MD RDO/AQ / RDO / MODL /[id number] documented in this encounter Plan of Treatment Not on file documented as of this encounter Visit Diagnoses Not on filedocumented in this encounter Care Teams Smooth Plater Relationship Specialty Start Date End Date [facility], Provider Not In The System, [place] [address] PCP - General 09/23/22 documented as of this encounter
--- OUTSIDE RECORDS SUMMARY | 2024-11-21 15:13 | XMS_ITS | Encounter Summary ---
Author Organization [employer] ([place], [place], [place], [place]) Address [address] [place] [address] Care Team Providers Care Manager Study Name Role Phone [facility], Provider Not In The System Primary Care Provider Unavailable Encounter Details Date Type Department Care Team (Late st Contact Info) Description 12/17/2019 Transcribed Document [facility] [address] [place] [address] ProviderFer MD [address] [place] [address] Social History Tobacco Use Types Packs/Day Years [...] Conversion Note - Historical ProviderMD - 12/17/2019 12:34 PM CDT Stroke/Warfarin Instructions Entered On: 12/17/2019 12:34 EDT Performed On: 12/17/2019 12:34 EDT by RUTH KOTHARI Stroke/Warfarin Instructions Stroke/TIA Discharge Ins : N/A Warfarin Discharge Ins : N/A RUTH KOTHARI - 12/17/2019 12:34 EDT documented in this encounter Plan of Treatment Not on file documented as of this encounter Visit Diagnoses Not on filedocumented in this encounter Care Teams Manager Study Relationship Specialty Start Date End Date [facility], Provider Not In The System, [place] [address] PCP - General 09/23/22 documented as of this encounter
--- OUTSIDE RECORDS SUMMARY | 2024-11-21 15:13 | XMS_ITS | Encounter Summary ---
Author Organization [employer] ([place], [place], [place], [place]) Address [address] [place] [address] Care Team Providers Care Wardrobe Coordinator Name Role Phone [facility], Provider Not In The System Primary Care Provider Unavailable Encounter Details Date Type Department Care Team (Late st Contact Info) Description 12/14/2019 Transcribed Document [facility] [facility] [address] [place] [address] ProviderFer MD [address] [place] [address] Social History Tobacco Use Types Packs/Day Years Used Date Smoking Tobacco: Never Assessed Comments Unknown Sex and Gender Information Value Date Recorded Sex Assigned at Female 11/03/2021 8:12 PM CDT Legal Sex Female 8:12 PM CDT Gender Identity Female 11/03/2021 8:12 PM CDT Sexual Orientation Not on file documented as of this encounter Miscellaneous Notes * Cerner Conversion Note - Historical Provider, - 12/14/2019 4:07 PM CDT Evaluation, Occupational Therapy Entered On: 12/15/2019 14:05 EDT Performed On: 12/15/2019 11:07 EDT by THANH ZHANG OTR/Maryann General Information, OT Visit Type, OT : Initial evaluation Patient Orders : Order Date Order Ordering 12/14/2019 16:08 Occupational Therapy Evaluation and Treatme Ordered By: ALEX THAKUR MD-[facility] Active Diagnoses : No Qualifying Diagnoses Therapy Diagnosis, OT : decreased fxl status due to pain, weakness Onset of Problem, OT : 12/14/2019 EDT Admission Date : 12/14/2019 05:54 Co-treated by, OT : Physical Therapist Personal Devices : Personal Devices No Devices Recorded Assistive Devices : Assistive Devices No Devices Recorded Precautions in Place : Fall prevention measures, Other: Pt to wear hard cervical collar. General Information Comment, OT : 49 yo female admitted s/p cervical fusion, C3-5. Pt is to wear collar at all times PMHx BUE numbness, HTN. THANH ZHANG OTR/Maryann - 12/15/2019 13:54 EDT General Status Patient Received Status : Supine in bed, HOB elevated, Other: cervical collar on Treatment Start Time : 12/15/2019 10:34 EDT Patient Left Status : Up in chair, RN/PCT informed, All needs met and within reach RN/PCT Informed Comment : NAN celis OT eval and tx Treatment End Time : 12/15/2019 11:07 EDT Treatment Time : 33 Minute(s) THANH ZHANG OTR/Maryann - 12/15/2019 13:54 EDT History and Environment, OT Living Situation, Therapy : Other: first floor apt Patient Lives With : Alone Persons Assisting Patient at Home : Alone Professional Skilled Services : None Persons Providing Information : Patient Home Equipment, Therapy : Shower Equipment, Walker Shower Equipment : Shower Chair, with back Walker : Walker, front wheel Walker Comment : and rollator Home Setup : One story Bedroom Location : Main level Bathroom #1 Location : Main level Bathroom #1 Features : Toilet, Tub/Shower Stairs : Yes Stair Location(s) : Outside Outside Stairs, Number of Steps : 1 Railing Outside : No THANH ZHANG OTR/Maryann - 12/15/2019 13:54 EDT Prior LOF Bathing, OT : Independent Prior LOF Bed Mobility : Independent Prior LOF Upper Body Dressing, OT : Independent Prior LOF Lower Body Dressing, OT : Independent Prior LOF Toileting : Independent Prior LOF Transfer : Independent Prior LOF Grooming, OT : Independent Prior LOF for IADLs, OT : Independent THANH ZHANG OTR/Maryann - 12/15/2019 13:54 EDT History and Environment Comment, OT : Pt may discharge to mother's home. THANH ZHANG OTR/Maryann - 12/15/2019 13:54 EDT Upper Extremity Upper Extremity Dominance : Right Right UE Active ROM : WFL Right UE Strength : WFL Left UE Active ROM : WFL Left UE Strength : WFL THANH ZHANG OTR/Maryann - 12/15/2019 13:54 EDT Right Upper Extremity MMT Shoulder Flexion 0-180 : 3/fair Shoulder Extension 0-60 : 3/fair Shoulder Abduction 0-180 : 3/fair Shoulder Adduction 0-180 : 3/fair Shoulder Internal Rotation 0-90 : 3/fair Shoulder External Rotation 0-90 : 3/fair Elbow Flexion 0-150 : 3/fair Elbow Extension 0-0 : 3/fair Wrist Flexion 0-80 : 3/fair Wrist Extension 0-70 : 3/fair Forearm Pronation 0-70 : 3/fair Forearm Supination 0-85 : 3/fair Ulnar Deviation 0-45 : 3/fair RadialDeviation 0-20 : 3/fair THANH ZHANG OTR/Maryann - 12/15/2019 13:54 EDT Left Upper Extremity MMT Shoulder Flexion 0-180 : 3/fair Shoulder Extension 0-60 : 3/fair Shoulder Abduction 0-180 : 3/fair Shoulder Adduction 0-180 : 3/fair Shoulder Internal Rotation 0-90 : 3/fair Shoulder External Rotation 0-90 : 3/fair Elbow Flexion 0-150 : 3/fair Elbow Extension 0-0 : 3/fair Wrist Flexion 0-80 : 3/fair Wrist Extension 0-70 : 3/fair Forearm Pronation 0-70 : 3/fair Forearm Supination 0-85 : 3/fair Ulnar Deviation 0-45 : 3/fair RadialDeviation 0-20 : 3/fair THANH ZHANG OTR/Maryann - 12/15/2019 13:54 EDT Hand Soloist Dancer Test : [facility] Fine Motor Coordination Impaired : No Upper Extremity Comment : Pt c/o bilat shoulder soreness/fatigue, but no c/o BUE numbness. THANH ZHANG OTR/Maryann - 12/15/2019 13:54 EDT Self Care/Home Management, OT Self Feeding Assist Level, OT : Independent, complete Grooming Assist Level, OT : Supervision or set-up Bathing Assist Level, OT : Assist, minimal Upper Body Dressing Assist Level, OT : Assist, moderate Lower Body Dressing Assist Level, OT : Assist, moderate Toileting Assist Level : Assist, minimal Toilet Transfer Assist Level : Assist, minimal Bed/Chair/WC Transfer Assist Level : Assist, minimal Bed/Chair/WC Transfer Device : Belt, gait, Walker, front wheel Bed/Chair/WC Transfer Comment : Pt walked fxl distance in hallway to increase endurance for ADL, RWx and min A for safety. THANH ZHANG OTR/Maryann 12/15/2019 13:54 EDT Functional Mobility Mobility Grid Bed Roll Left : Supervision/set-up Supine to Sit : Rehab Minimal assistance Sit to Stand : Rehab Minimal assistance Bed to Chair : Rehab Minimal assistance Stand to Sit : Supervision/set-up THANH ZHANG OTR/Maryann - 12/15/2019 13:54 EDT Supine to Sit Device : Rails, Other: HOB elevated Sit to Stand Device : Belt, gait, Walker, front wheel Bed to Chair Device : Belt, gait, Walker, front wheel THANH ZHANG OTR/Maryann 12/15/2019 13:54 EDT Cognition Assessment, OT Orientation : Oriented x 4 Cognition Assessment, OT : Intact Comprehension Assessment, OT : Intact Safety/Judgment Assessment, OT : Intact Follows Basic Command Assessment, OT : Intact Attention Assessment : Present THANH ZHANG OTR/Maryann 12/15/2019 13:54 EDT Indication Assessment, OT Occupational Therapy Indicated : Yes Problem List, OT : Impaired, bed mobility, Impaired, activities daily living, Impaired, endurance tolerance, Impaired functional mobility, Impaired, standing balance, Impaired, strength, Impaired, transfers, Pain limiting function Potential Barriers, OT : None evident Rehabilitation Potential, OT : Good THANH ZHANG OTR/Maryann - 12/15/2019 13:54 EDT Plan of Care, OT OT Tx Plan/Goals Established w Patient : Yes OT Frequency Rehab : Five days per week OT Duration Rehab : Fourteen days OT Treatments Planned : Activities of daily living, Balance training, Functional mobility training, Pain management, Safety education, Therapeutic activities, Therapeutic exercises THANH ZHANG OTR/Maryann 12/15/2019 13:54 EDT Fci Goals, OT Grooming LTG Grid Goal #1 Activity : Grooming Assist : Supervision or set up Date to Meet : 12/29/2019 EDT Goal Status : Initial goal Comment : standing at sink THANH ZHANG OTR/Maryann 12/15/2019 13:54 EDT Dressing, Upper Body LTG Grid Goal #1 Activity : Dressing, Upper Body Assist : Supervision or set up Date to Meet : 12/29/2019 EDT Goal Status : Initial goal THANH ZHANG OTR/Maryann - 12/15/2019 13:54 EDT Dressing, Lower Body LTG Grid Goal #1 Activity : Dressing, Lower Body Assist : Supervision or set up Date to Meet : 12/29/2019 EDT Goal Status : Initial goal Comment : AE PRN THANH ZHANG OTR/Maryann - 12/15/2019 13:54 EDT Toilet Transfer LTG Grid Goal #1 Activity : Toilet Transfer, Ambulatory Assist : Supervision or set up Equipment : Rolling walker Date to Meet : 12/29/2019 EDT Goal Status : Initial goal Comment : bathroom toilet, demo good safety THANH ZHANG OTR/Maryann - 12/15/2019 13:54 EDT Bed Mobility/ Bed Transfer LTG Grid Goal #1 Goal #2 Activity : Bed Mobility, Supine to Sit Bed Mobility, Sit to Supine Assist : Supervision or set up Supervision or set up Date to Meet : 12/29/2019 EDT 12/29/2019 EDT Goal Status : Initial goal Initial goal Comment : log roll technique log roll technique THANH ZHANG OTR/Maryann - 12/15/2019 13:54 EDT THANH ZHANG OTR/Maryann - 12/15/2019 13:54 EDT Treatment Note Subjective Comment : Pt agreeable. Pt c/o BLE weakness, BUE fatigue/soreness. Patient's Response to Treatment : good participation and tolerance Additional Objective Information : Pt participated in formal OT evaluation at bedside, UE assessment while sitting unsupported EOB. Pt walked fxl distance in hallway to increase endurance for ADL, RWx and min A for safety. Pt ed re: back HEP, log roll technique. Pt left in chair w/ needs in reach. Assessment : Pt would benefit from skilled OT services during admission. Due to pt's unsteadiness, she may benefit from short rehab stay prior to discharge home; or at least HH at discharge. Plan for Treatment : see POC and LTG THANH ZHANG OTR/Maryann - 12/15/2019 13:54 EDT Pain Assessment Pain Scaled Used : 0-10 Pain scale Pain Score During-Intervention : 5 Location : Headache, occipital, Neck, posterior THANH ZHANG OTR/L - 12/15/2019 13:54 EDT Image 1 - Images currently included in the form version of this document have not been included in the text rendition version of the form. Anticipated Discharge Needs, OT/PT Anticipated Discharge to : Home, with home health, Unit, rehabilitation Anticipated Home Equipment : None Recommend Continued Therapy at Discharge : Yes THANH ZHANG OTR/Maryann - 12/15/2019 13:54 EDT [employer] OT Charges OT Selfcare/Hm Mgmt Ea 15 Min : 1 OT Eval Low Complexity : 1 THANH ZHANG OTR/L - 12/15/2019 13:54 EDT Electronically signed by Danie Livingston Conversion Highway Maintenance Technician Cerner at 08/23/2022 5:24 PM CDT documented in this encounter Plan of Treatment Not on file documented as of this encounter Visit Diagnoses Not on filedocumented in this encounter Care Teams Wardrobe Coordinator Relationship Specialty Start Date End Date [facility], Provider Not In The System, [place] [address] PCP - General 09/23/22 documented as of this encounter
--- OUTSIDE RECORDS SUMMARY | 2024-11-21 15:13 | XMS_ITS | Clinical Summary ---
Author Organization [employer] ([place], [place], [place], [place]) Address [address] [place] [address] Care Team Providers Care Primary Counselor Name Role Phone [facility], Provider Not In The System Primary Care [...] Date Heraclio rded Speak language other than Australian at home Not on file 05/18/2023 Want [...] 07/26/2024 10:38 AM EDT Plan of Treatment Health Maintenance Due Date Last Done Comments CT Colonography 1971 Colonoscopy 1971 Colorectal Cancer Screening 1971 FOBT/FIT 1971 Fit-DNA (Cologuard) 1971 Sigmoidoscopy 1971 Depression Screening (12+) 1983 Tobacco Cessation Counseling and Screening (12+) 06/18 HIV Screening 1986 Hepatitis C Screening 1989 Pneumococcal 50+ years (1 of 2 - PCV) 1990 Pap Smear 1992 Breast Cancer Screening 2011 Lipid Panel 2016 DTAP/TDAP/TD VACCINES (2 - Td or Tdap) 01/25/2018 Lung cancer screening 2021 Shingles Vaccine (Zoster) (1 of 2) 2021 COVID-19 VACCINE () 01/08/2024 Influenza Vaccine (#1) 2025 Medical Devices Implanted Type Area Blueprint Machine Operator Device Identifier Shelf Expiration Date Model / Serial / Lot Bone Vivigen Formable Sm Bl-1600-001 - [id number] Implanted:Qty: 1 on 11/17/2022 by Jah Robbins Jr., MD at [facility] IMPLANTS N/A: Neck LIFENET:LIFENET TRANSPLANT SRV 10/28/2023 BL-1600-00 1 / [id number] / Cage Eit Cif H 6mm 8d S [id number] - [id number] Implanted:Qty: 1 on 11/17/2022 by Jah Robbins Jr., MD at [facility] IMPLANTS N/A: Neck J &J:DEPUY:DEPUY SPINE 10/07/2027 [id number] / / [id number] Scr Skyln Vari Sd 16mm - [id number] Implanted:Qty: 4 on 11/17/2022 by Jah Robbins Jr., MD at [facility] IMPLANTS N/A: Neck J &J:DEPUY:DEPUY SPINE 6 / 6 / Cage Eit Cif H 6mm 8d S [id number] - [id number] Implanted:Qty: 1 on 11/17/2022 by Jah Robbins Jr., MD at [facility] IMPLANTS N/A: Neck J &J:DEPUY:DEPUY SPINE 10/07/2027 [id number] / / [id number] Cage Eit Cif H 5mm 8d S [id number] - [id number] Implanted:Qty: 1 on 11/17/2022 by Jah Robbins Jr., MD at [facility] IMPLANTS N/A: Neck J &J:DEPUY:DEPUY SPINE 11/05/2025 [id number] / / [id number] Plt Ant Skyln Hybrd Lvl3 45mm - [id number] Implanted:Qty: 1 on 11/17/2022 by Jah Robbins Jr., MD at [facility] IMPLANTS N/A: Neck J &J:DEPUY:DEPUY SPINE 1867-07-11 5 / 1866-07-11 5 / Scr Skyln Vari-Ovsz 16mm - - [id number] Implanted:Qty: 4 on 11/17/2022 by Jah Robbins Jr., MD at [facility] IMPLANTS N/A: Neck J &J:DEPUY:DEPUY SPINE 6 / 6 / Insurance MEDICAID OF [place] Advance Directives For more information, please contact: [phone] Documents on File Type Date Recorded Patient Semiconductor Engineer Expl anation Advance Directives and Sunil g Will 11/17/2022 7:10 AM Care Teams Primary Counselor Relationship Specialty Start Date End Date [facility], Provider Not In The System, [place] [address] PCP - General 09/23/22
--- OUTSIDE RECORDS SUMMARY | 2024-11-21 15:13 | XMS_ITS | Encounter Summary ---
Author Organization [employer] ([place], [place], [place], [place]) Address [address] [place] [address] Care Team Providers Care Bridge Rigger Name Role Phone [facility], Provider Not In The System Primary Care Provider Unavailable Encounter Details Date Type Department Care Team (Late st Contact Info) Description 12/17/2019 Transcribed Document [facility] [place] [address] [place] [address] ProviderFer MD [address] [place] [address] Social History Tobacco Use Types Packs/Day Years [...] Conversion Note - Historical ProviderMD - 12/17/2019 2:10 PM CDT Discharge Summary, PT Entered On: 12/17/2019 14:11 EDT Performed On: 12/17/2019 14:10 EDT by ABELARDO ALVARADO PTA Discharge Summary Discharge Summary Provider Notified : Physical Therapy Reason for Discharge : Discharged from hospital Discharged to, Therapy : Home, with home health ABELARDO ALVARADO PTA - 12/17/2019 14:10 EDT Discharge Summary Comment, PT : Patient was supervision for all transfers ambulates 500ft with RWx supervision Patient has not met 3 LTGs and would benefit from continued PT. PT agrees with written D/C summary. DAISY TANG, PT - 12/17/2019 14:14 EDT Operations Intelligence Superintendent Goals Mobility/Bed Mobility LTG PT Grid Goal #1 Goal #2 Activity : Supine to sit Sit to stand Assist : Independent, modified Independent, modified Equipment : Walker, front wheel Date to Meet : 12/29/2019 EDT 12/29/2019 EDT Goal Status : Not met Not met ABELARDO ALVARADO, JAIRON - 12/17/2019 14:10 EDT ABELARDO ALVARADO PTA - 12/17/2019 14:10 EDT Ambulation LTG Grid Goal #1 Device : Walker, front wheel Distance : 300 ft Assist : Independent, modified Date to Meet : 12/29/2019 EDT Goal Status : Not met Comment : Hard cervical collar ABELARDO ALVARADO PTA - 12/17/2019 14:10 EDT documented in this encounter Plan of Treatment Not on file documented as of this encounter Visit Diagnoses Not on filedocumented in this encounter Care Teams Bridge Rigger Relationship Specialty Start Date End Date [facility], Provider Not In The System, [place] [address] PCP - General 09/23/22 documented as of this encounter
--- OUTSIDE RECORDS SUMMARY | 2024-11-21 15:13 | XMS_ITS | Encounter Summary ---
Author Organization [employer] ([place], [place], [place], [place]) Address [address] [place] [address] Care Team Providers Care Pct Name Role Phone [facility], Provider Not In The System Primary Care Provider Unavailable Encounter Details Date Type Department Care Team (Late st Contact Info) Description 12/14/2019 Transcribed Document [facility] [place] Family Medicine [address] [place] [address] ProviderFer MD [address] [place] [address] Social History Tobacco Use Types Packs/Day Years [...] Historical ProviderMD - 12/14/2019 2:19 PM CDT [facility] Main OR PACU Summary Primary Physician: ALEX THAKUR MD-SNU Finalized Date/Time: 12/14/19 17:20:24 Pt. Name: NASRIN MAY /Sex: 1970 Female Med Rec #: [id number] Physician: ALEX THAKUR MD-SNU Financial #: [id number] Pt. Type: I Room/Bed: ASA/1 Admit/Disch: 12/14/19 05:54:00 - Institution: [facility] Main OR PACU I Case Times Entry 1 In PACU I 12/14/19 16:12:00 Ready for PACU 12/14/19 17:16:00 Discharge Discharge from PACU 12/14/19 17:16:00 I Last Modified By: SHERRILL MASON RN 12/14/19 17:20:10 Finalized By: SHERRILL MASON, RN Document Signatures Signed By: SHERRILL MASON RN 12/14/19 17:20 Electronically signed by Miki [facility] Conversion Drapery Cutter Cerner at 08/23/2022 5:28 PM CDT documented in this encounter Plan of Treatment Not on file documented as of this encounter Visit Diagnoses Not on filedocumented in this encounter Care Teams Pct Relationship Specialty Start Date End Date [facility], Provider Not In The System, [place] [address] PCP - General 09/23/22 documented as of this encounter
--- OUTSIDE RECORDS SUMMARY | 2024-11-21 15:13 | XMS_ITS | Encounter Summary ---
Author Organization [employer] ([place], [place], [place], [place]) Address [address] [place] [address] Care Team Providers Care Drapery Operator Name Role Phone Sj, Provider Not In The System Primary Care Provider Unavailable Encounter Details Date Type Department Care Team (Late st Contact Info) Description 12/17/2019 Transcribed Document [facility] [place] [address] [place] [address] ProviderFer MD [address] [place] [address] Social History Tobacco Use Types Packs/Day Years [...] Conversion Note - Historical ProviderMD - 12/17/2019 11:02 AM CDT Patient Education Materials Follows: Wound Infection A wound infection happens when [...] antibiotic medicine. ? The infection should improve 24?48 hours after you start antibiotics. ? After 24?48 hours, redness around the wound should stop spreading. The wound should also be less painful. Follow these instructions at home: Medicines ??? Take or apply jgqv-cew-dpajabl and prescription medicines only as told by [...] cannot use soap and water, use hand tassel maker. ? Change your bandage as told by [...] does not start to get better in 24?48 hours, or your symptoms get worse. ??? Keep all follow-up visits as told by your doctor. This is important. This information is not intended to replace advice given to you by your health care provider. Make sure you discuss any questions you have with your health care provider. Document Released: 02/01/2009 Document Revised: 12/05/2018 Document Reviewed: 12/05/2018 [employer] Patient Education ? 2020 [employer] Orthopedics Spinal Fusion, Adult, Care After This sheet gives you information about how to care for yourself after your procedure. Your doctor may also give you more specific instructions. If you have problems or questions, contact your doctor. Follow these instructions at home: Medicines ??? Take ezuh-tpw-dgrtnjt and prescription medicines only as told by [...] Leave the ice on for 20 minutes, 2?3 times a day. Surgery cut care ??? Follow instructions from your doctor about how to take care of your cut from surgery (incision). Make sure you: ? Wash your hands with soap and water before you change your bandage (dressing). If you cannot use soap and water, use hand tassel maker. ? Change your bandage as told by [...] your pee (urine) pale yellow. ? Take vabv-auy-mvylrri or prescription medicines. ? Eat foods that [...] 08/19/2011 Document Revised: 08/16/2019 Document Reviewed: 08/09/2017 [employer] Patient Education ? 2019 [employer] documented in this encounter Plan of Treatment Not on file documented as of this encounter Visit Diagnoses Not on filedocumented in this encounter Care Teams Drapery Operator Relationship Specialty Start Date End Date [facility], Provider Not In The System, [place] [address] PCP - General 09/23/22 documented as of this encounter
--- OUTSIDE RECORDS SUMMARY | 2024-11-21 15:13 | XMS_ITS | Encounter Summary ---
Author Organization [employer] ([place], [place], [place], [place]) Address [address] [place] [address] Care Team Providers Care Director Of Enterprise Strategy Name Role Phone [facility], Provider Not In The System Primary Care Provider Unavailable Encounter Details Date Type Department Care Team (Late st Contact Info) Description 12/17/2019 Transcribed Document [facility] [place] Family Medicine [address] [place] [address] ProviderFer MD [address] [place] [address] Social History Tobacco Use Types Packs/Day Years [...] Conversion Note - Fer ProviderMD - 12/17/2019 3:19 PM CDT [facility] Authorization Entered On: 12/17/2019 15:19 EDT Performed On: 12/17/2019 15:19 EDT by Theresa Daniel, Binder [employer] Primary Insurance Authorization Authorization and Policy Numbers : Insurance 1 Health Plan: [employer] Policy Number: [id number] Authorization Number: Insurance Primary Name : [facility] [id number] Authorization Status-Primary : Awaiting callback Auth/Referral Contact Name-Primary : [place] Authorization Number-Primary : [id number] Authorized Service Begin Date-Primary : 12/14/2019 EDT Authorization Comments-Primary : Discharge date and summary faxed. Historical Authorization Comments-Primary : Comment 1: Per [facility] portal pending auth for IP, [place] 12245, 40056, 98371, 32415, 11364, 15875, 90746 (WILLIE MITCHELL RN 12/15/2019 08:49) Comment 2: pt is scheduled for INPT Lumbar Fusion Posterior 3 Level Cervical Discectomy Fusion Posterior and Cervical Laminectomy Posterior on Tuesday12/14/2019 PA will call and obtain auth on date of serv. (MELISSA LIU, Crime Lab Technician 12/13/2019 13:30) Theresa Daniel, [employer] - 12/17/2019 15:19 EDT documented in this encounter Plan of Treatment Not on file documented as of this encounter Visit Diagnoses Not on filedocumented in this encounter Care Teams Director Of Enterprise Strategy Relationship Specialty Start Date End Date [facility], Provider Not In The System, [place] [address] PCP - General 09/23/22 documented as of this encounter
--- OUTSIDE RECORDS SUMMARY | 2024-11-21 15:13 | XMS_ITS | Data Portability ---
Author Organization [facility] Address [address] [place] [address] Assessment No assessment recorded. Plan of Treatment Reminders Order Date Submit Date Provider Last Modified By Organization Details Last Modified Time Details Appointments None recorded. Lab None recorded. Referral None recorded. Procedures None recorded. Surgeries None recorded. Imaging None recorded. Medication Orders Depo-Director Part a 150 mg/mL intramuscul ar suspension [address], [address], 3 11:41:08 Depo-Director Part a 150 mg/mL intramuscul ar suspension 2022 [email or web address], [address], 3 11:33:48 Depo-Director Part a 150 mg/mL intramuscul ar suspension [address], [address], 3 12:11:54 Depo-Director Part a 150 mg/mL intramuscul ar suspension 2021 [email or web address], [address], 09:17:35 Depo-Director Part a 150 mg/mL intramuscul ar suspension [address], [address], 08:38:17 Depo-Director Part a 150 mg/mL intramuscul ar suspension 2021 022 [email or web address] [facility], [address] [place] [address], [address], 14:19:29 Patient TargetsNo targets recorded. Patient Instructions Encounter Date Encounter Id Patient Instructions Last Modified By Organization Details Last Modified Time 12/24/2021 [id number] body mass index: care instructions Not available 12/24/2021 14:50:03 learning about healthy weight Not available 12/24/2021 14:50:03 F/U as scheduled for next Depo injection Pick Depo up at pharmacy and bring to office with you. Encouraged to get 30 min of sunlight per day Encouraged to increase weight bearing exercise and calcium / vit D intake Call with questions or concerns. Not available 12/24/2021 14:13:25 Risks of bone loss with Depo Provera also reviewed. All questions answered. Pt understands & accepts risks. Instructions/warn ing signs given. [email or web address] Not available 12/23/2021 12:36:38 03/17/2022 [id number] F/U as scheduled for next Depo injection Pick Depo up at pharmacy and bring to office with you. Encouraged to get 30 min of sunlight per day Encouraged to increase weight bearing exercise and calcium / vit D intake Call with questions or concerns. Not available 03/17/2022 09:16:48 Risks of bone loss with Depo Provera also reviewed. All questions answered. Pt understands & accepts risks. Instructions/warn ing signs given. [email or web address] Not available 03/17/2022 09:04:40 06/07/2022 [id number] F/U as scheduled for next Depo injection Pick Depo up at pharmacy and bring to office with you. Encouraged to get 30 min of sunlight per day Encouraged to increase weight bearing exercise and calcium / vit D intake Call with questions or concerns. Not available 06/07/2022 12:12:14 Risks of bone loss with Depo Provera also reviewed. All questions answered. Pt understands & accepts risks. Instructions/warn ing signs given. [email or web address] Not available 06/04/2022 08:36:07 09/07/2022 [id number] F/U as scheduled for next Depo injection Pick Depo up at pharmacy and bring to office with you. Encouraged to get 30 min of sunlight per day Encouraged to increase weight bearing exercise and calcium / vit D intake Call with questions or concerns. Not available 09/07/2022 11:39:27 01/21/2023 [id number] F/U as scheduled for next Depo injection Pick Depo up at pharmacy and bring to office with you. Encouraged to get 30 min of sunlight per day Encouraged to increase weight bearing exercise and calcium / vit D intake Call with questions or concerns. Not available 01/21/2023 11:55:13 Reason for Referral None Reported. Results Created Date Observation Date Name Description Value Unit Range Abnormal Flag Note LastModifiedBy Organization Detail LastModifiedTime 01/22/2001/21/2023 HCG SERUM DEWEY note See Note Order ing Provi osvaldo: Bhavesh Souza WILL CALL CLERK Not Available [address] , [place], [address], 01/21/2023 10:51:15 01/22/2001/21/2023 HCG SERUM DEWEY HCG serum dewey <1 mIU/m L HCG EXPEC TAISHA CADY NTRAT IONS 0.2-w [place] 5-50 mIU/m l 1-2 weeks 50-50 0 mIU/m l 2-3 weeks 100-5 000 mIU/m l 3-4 weeks 500-1 0000 mIU/m l 4-5 weeks 1000- 50,00 0 mIU/m l 5-6 weeks 23297 -100, 000 mIU/m l 6-8 weeks 82723 -200, 000 mIU/m l 2-3 month s 51041 -100, 000 mIU/m l Not Available [address] , [place], [address], 01/21/2023 10:51:15 01/22/20 23 01/21/2023 HCG SERUM DEWEY performing lab see note ML - [facility] R [address] [place] [place] [address] Not Available [address] , [place], [address], 01/21/2023 10:51:15 Result Notes None recorded. Problems Name Problem SNOMED Code Status Onset Date Resolution Date Notes Provider Name and Address Organization Details Recorded Time Tobacco dependen ce syndrome 64135921 Active 2017 Lorna Yvon null, [place] - [facility] 2 09:58:04 Tobacco user [id number] Completed 201704/14/2018 Magdalena Talley, WILL CALL CLERK [address], [place], [address], [place] [facility] 8 16:17:30 Gastroes ophageal reflux disease 416606710 Active 2018 L[place] Yvon [place] - [facility] 2 09:57:06 Hyperlip idemia 19460743 Active 2018 L[place] [facility] 2 09:57:09 Alcoholi sm 0217657 Active L[place] [facility] 2 09:56:02 Intentio nal drug overdose Completed 06/02/2020 L[place] [facility] 1 16:13:03 Procedur e carried out on subject [id number] Completed 08/25/2020 L[place] [facility] 1 10:21:16 Obstruct johana sleep apnea syndrome 24567160 Active 2018 L[place] [facility] 2 09:57:33 Cervical spondylo sis 029533764 Active 2019 L[place] [facility] 2 09:56:12 Weakness of left arm [id number] 771173 Active 2019 L[place] [facility] 2 09:58:10 Paresthe lilia of upper limb 70468336 Completed 201908/25/2020 L[place] [facility] 1 10:22:20 Spinal stenosis in cervical region 06492873 Active 2019 Chante Marin MD [address], [place], [address], [place] [facility] 2 13:01:31 Hypothyr oidism 36204542 Active 2019 L[place] [facility] 2 09:57:12 Pain in left arm 971247925 Completed 201908/25/2020 L[place] [facility] 1 10:21:09 Pain in right arm 520619890 Completed 201908/25/2020 L[place] [facility] 1 10:21:12 Acquired hypothyr oidism 596960630 Completed 201908/25/2020 L[place] [facility] 1 10:22:41 Dysmenor negar 864330020 Active 2020 L[place] [facility] 2 09:56:51 Menorrha nitesh 918332217 Active 2020 L[place] [facility] 2 09:57:25 Concussi on with loss of consciou sness 67958616 Completed 202007/30/2021 L[place] [facility] 2 09:56:38 Fall on same level from slipping , tripping or stumblin g Completed 202007/30/2021 [place] [facility] 2 09:57:02 Postconc ussion syndrome 79489520 Active 2020 Lorna Sanz [place] [facility] 2 09:57:40 Chronic neck pain 05512691713 07 Active 2021 Luis Fernando Webb MD [address], [place], [address], [place] [facility] 2 20:59:47 Mixed anxiety and depressi ve disorder 685865624 Active 2021 Chante Marin MD [address], [place], [address], [place] [facility] 2 12:56:02 Degenera tion of cervical interver tebral disc 08364901 Active 2021 Chante Marin MD [address], [place], [address], [place] [facility] 2 13:04:14 [facility] hyperten nuno 80642938 Active 2016 Lorna steel[place] - [facility] 2 09:56:56 Tobacco user [id number] Completed 201610/24/2017 Magdalena Talley APRN [address], [place], [address], [place] [facility] 8 16:17:30 Insomnia 851804722 Active 2016 Lorna steel[place] [facility] 2 09:57:19 Problem Notes None recorded. Procedures Surgical History Date Name Laterality Status Provider Name and Address Organization Details Recorded Time 022 Date of Last Mammogram completed Lorna Sanz [place] [facility] 07/03/2021 08:17:01 021 Medication Reconcilliation completed Trinidad Raquel [place] [facility] 02/12/2021 11:44:02 021 Sonohysterography completed Liya Vann MD [address], [place], [address], [place] [facility] 06/30/2020 13:40:10 021 Endometrial Biopsy completed Liya Vann MD [address], [place], [address], [place] [facility] 06/30/2020 13:40:06 021 Date of Last Pap Smear completed Lorna Brewers [place] [facility] 07/09/2020 13:24:51 021 Endometrial Biopsy completed Lorna Brewers [place] [facility] 07/09/2020 13:25:26 020 laminectomy completed Chante Marin MD [address], [place], [address], [place] [facility] 11/07/2021 13:00:55 020 Arthrd ant kecia/xoral c1-c2 completed Lorna Brewers [place] [facility] 06/02/2020 16:14:35 020 Systolic B/P less than 130 mm Hg completed Trinidad Raquel [place] [facility] 11/21/2019 09:54:53 020 Diastolic B/P less than 80 mm Hg completed Trinidad Ra[place] [facility] 11/21/2019 09:54:55 019 Medication Reconcilliation completed Trinidad Raquel [place] [facility] 01/18/2019 14:03:11 019 Medication Reconcilliation completed Trinidad Raquel [place] [facility] 05/29/2018 10:58:35 018 Skin Biopsy and/or Mucous Membrane completed Luis Fernando Webb MD [address], [place], [address], [place] [facility] 02/24/2018 17:17:22 017 Arthrd ant kecia/xoral c1-c2 completed Trinidad Raquel [place] [facility] 04/20/2017 13:20:25 017 Date of Last Colonoscopy completed Lorna Brewers [place] [facility] 06/02/2020 16:13:55 012 Tubal Ligation completed Luna Juan [place] [facility] 06/17/2016 16:46:14 010 Hernia Repair completed Luna [place] [facility] 06/17/2016 16:45:23 Fragmenting of kidney stone completed Luna [place] [facility] 06/17/2016 16:45:45 Imaging Results None recorded. Procedure Notes None recorded. Medical Equipment None Reported. Allergies No known drug allergies Medications Name Sig Start Date Stop Date Status Note LastModified by Organization Details LastModified Time compounde d medicatio n 3 CC SWISH AND SPIT DAILY NEEDED. 03/19 completed Not Available Not Available Not Available quetiapin e 25 mg tablet 1 PO QHS 02/02 completed Not Available Not Available Not Available cyclobenz aprine 10 mg tablet ONE (1) (ONE) TABLET THREE (3) TIMES DAILY, NEEDED FOR MUSCLE SPASMS active Not Available Not Available No t Available amoxicill in 500 mg capsule take 1 capsule (500 mg) by oral route 3 times per day for 7 days 11/12 completed Not Available Not Available Not Available clotrimaz ole 10 mg natividad Take 1 tablet 5 times a day by oral route for 7 days. 07/03 completed Not Available Not Available Not Available nystatin 100,000 unit/mL oral suspensio n TAKE FIVE (5) MILLILIT ER BY MOUTH FOUR TIMES DAILY, SWISH, SWALLOW active Not Available Not Available No t Available prednison e 10 mg tablet TAKE THREE (3) TABLETS BY MOUTH EVERY DAY FOR 3 DAYS THEN TAKE 2 TABLETS EVERY DAY FOR 3 DAYS THEN TAKE 1 TABLET EVERY DAY FOR 3 DAYS active Not Available Not Available No t Available venlafaxi ne ER 75 mg capsule,e xtended release 24 hr 1 PO QD 03/05 completed Not Available Not Available Not Available gabapenti n 600 mg tablet TAKE ONE (1) TABLET THREE (3) TIMES A DAY BY MOUTH active Not Available Not Available No t Available doxycycli ne hyclate 100 mg capsule Take 1 capsule twice a day by oral route for 7 days. 07/23 completed Not Available Not Available Not Available albuterol sulfate 2.5 mg/3 mL (0.083 %) solution for nebulizat ion Inhale 3 mL every 6 hours by nebuliza tion route. 12/11 completed Not Available Not Available Not Available trazodone 50 mg tablet take 1 tablet by oral route daily for 30 days 06/05 completed trazodon e 50 mg oral tablet;R ecorded Status: Recorded on: 05/26/19 16 3:07PM;D iscontin ued Status: Disconti nued on: 06/05/19 16 5:07PM;U ser: [email or web address] ;Est. Completi on: 06/25/19 16;Print ed: 05/26/19 16 Not Available Not Available Not Available azithromy calvin 250 mg tablet Take 2 tablets the first day (500 mg) followed by 1 tablet (250 mg) days 2-5. for 5 days 12/02 completed Not Available Not Available Not Available levalbute rol 0.63 mg/3 mL solution for nebulizat ion Inhale 3 mL every 8 hours by nebuliza tion route. 01/18 completed Not Available Not Available Not Available ibuprofen 800 mg tablet 1 tab po prn 07/04 completed Not Available Not Available Not Available tizanidin e 4 mg tablet 01/15 completed Not Available Not Available Not Available benzonata te 200 mg capsule TAKE ONE (1) CAPSULE (ORAL) EVERY FOUR (4) TO SIX (6) HOURS FOR 7 DAYS active Not Available Not Available No t Available ranitidin e 300 mg tablet take 1 tablet (300 mg) by oral route with the evening meal for 30 days 08/05 completed ranitidi ne HCl 300 mg oral tablet;R ecorded Status: Recorded on: 05/26/19 16 3:08PM;D iscontin ued Status: Disconti nued on: 08/06/19 16 4:54PM;U ser: [email or web address] ;Est. Completi on: 11/22/19 16;Print ed: 05/26/19 16 Not Available Not Available Not Available clarithro mycin 500 mg tablet take one tablet by mouth every 12 hours for 10 days. 07/03 completed Not Available Not Available Not Available cephalexi n 250 mg capsule Take 1 capsule every 6 hours by oral route. 04/14 completed Not Available Not Available Not Available Claritin 10 mg tablet take 1 tablet (10 mg) by oral route once daily 04/19 completed Claritin 10 mg oral tablet;R ecorded Status: Recorded on: 03/28/20 13 12:17PM; Disconti nued Status: Disconti nued on: 04/19/20 14 9:17AM;U ser: [email or web address] Not Available Not Available Not Available minocycli ne 100 mg capsule Take 1 capsule twice a day by oral route for 21 days. 08/26 completed Not Available Not Available Not Available meloxicam 15 mg tablet TAKE 1 TABLET BY MOUTH EVERY DAY active Not Available Not Available No t Available sertralin e 100 mg tablet Take 1 tablet every day by oral route. 04/20 completed Not Available Not Available Not Available atenolol 25 mg tablet TAKE ONE (1) TABLET BY MOUTH DAILY active Not Available Not Available No t Available venlafaxi ne ER 150 mg capsule,e xtended release 24 hr TAKE ONE CAPSULE BY MOUTH DAILY FOR 4 DAYS 02/02 completed Not Available Not Available Not Available hydroxyzi ne pamoate 50 mg capsule Take 1 capsule 3 times a day by oral route for 90 days. 12/25 completed Not Available Not Available Not Available Zyrtec 10 mg tablet Take 1 tablet every day by oral route. 04/14 completed Not Available Not Available Not Available metronida zole 500 mg tablet TAKE 1 TABLET BY MOUTH TWICE DAILY 12/25 completed Not Available Not Available Not Available levothyro xine 25 mcg tablet TAKE ONE (1) TABLET BY MOUTH DAILY active Not Available Not Available No t Available hydrocort isone acetate 25 mg rectal supposito ry UNWRAP AND INSERT 1 SUPPOSIT ORY TWICE A DAY BY RETCAL ROUTE FOR 7 DAYS 04/14 completed Not Available Not Available Not Available meloxicam 7.5 mg tablet TAKE ONE (1) TABLET EVERY DAY BY ORAL ROUTE DIRECTED FOR 14 DAYS. active Not Available Not Available No t Available oxycodone -acetamin ophen 5 mg-325 mg tablet 04/20 completed Not Available Not Available Not Available terbinafi ne HCl 250 mg tablet Take 1 tablet every day by oral route for 14 days. 06/01 completed Not Available Not Available Not Available prednisol one acetate 1 % eye drops,campos pension 06/17 completed Not Available Not Available Not Available Depo-Prov era 150 mg/mL intramusc ular suspensio n Inject 1 mL every 12 weeks 2022 active Not Available Not Available Not Avai lable gabapenti n 800 mg tablet active Not Available Not Available Not Available antipyrin e-benzoca ine 5.4 %-1.4 % ear drops instill into both ears by otic route every 2 hours as needed enough drops to fill ear canal for 7 days 08/03 completed antipyri ne-benzo rey 5.4-1.4 % otic drops;Re corded Status: Recorded on: 07/09/19 10 11:34AM; Disconti nued Status: Disconti nued on: 08/04/19 12 4:06PM;U ser: [email or web address] dm;Est. Completi on: 07/16/19 10;Indic ation: Earache - (2147 00);Prin taisha: 07/09/19 10 Not Available Not Available Not Available ciproflox acin 0.3 % eye drops 06/17 completed Not Available Not Available Not Available benzonata te 100 mg capsule take 1 capsule (100 mg) by oral route three times a day as needed for cough 07/23 completed Not Available Not Available Not Available hydrocodo ne 7.5 mg-acetam inophen 325 mg tablet Take 1 tablet every 6 hours by oral route as needed. 01/15 completed Not Available Not Available Not Available cephalexi n 500 mg capsule 06/01 completed Not Available Not Available Not Available pantopraz ole 40 mg tablet,de layed release 01/18 completed Not Available Not Available Not Available mirtazapi ne 30 mg tablet TAKE 1 TABLET BY MOUTH BEDTIME active Not Available Not Available No t Available hydrochlo rothiazid e 12.5 mg capsule TAKE 1 CAPSULE BY MOUTH DAILY active Not Available Not Available No t Available diclofena c sodium 25 mg tablet,de layed release Take 1 tablet 3 times a day by oral route. 07/23 completed Not Available Not Available Not Available gabapenti n 300 mg capsule 03/19 completed Increase d ti 600 mg TID Not Available Not Available Not Available sertralin e 25 mg tablet Take 1 tablet every day by oral route. 07/15 completed Not Available Not Available Not Available buspirone 7.5 mg tablet 1 PO BID 03/05 completed Not Available Not Available Not Available omeprazol e 20 mg capsule,d elayed release TAKE 1 CAPSULE BY MOUTH EVERY DAY *NEED APPOINTM ENT* active Not Available Not Available No t Available diclofena c sodium 75 mg tablet,de layed release TAKE 1 TABLET BY MOUTH TWICE DAILY NEEDED active Not Available Not Available No t Available hydrochlo rothiazid e 25 mg tablet Take 1 tablet every day by oral route for 4 days. 01/18 completed Not Available Not Available Not Available mupirocin 2 % topical ointment APPLY A SMALL AMOUNT TO THE AFFECTED AREA BY TOPICAL ROUTE 3 TIMES PER DAY 04/14 completed Not Available Not Available Not Available diclofena c sodium 50 mg tablet,de layed release TAKE ONE (1) TABLET TWICE A DAY BY ORAL ROUTE active Not Available Not Available No t Available lisinopri l 10 mg-hydroc hlorothia zide 12.5 mg tablet take 1 tablet by oral route once daily for 30 days 09/05 completed lisinopr il-hydro chloroth iazide 10-12.5 mg oral tablet;R ecorded Status: Recorded on: 09/01/19 12 11:09AM; Disconti nued Status: Disconti nued on: 09/06/19 12 5:00PM;U ser: [email or web address];Est. Completi on: 10/01/19 12;Indic ation: Hyperten nuno - (07.4019 00);Prin taisha: 09/01/19 12 Not Available Not Available Not Available ibuprofen 600 mg tablet 1 tab po prn 04/14 completed Not Available Not Available Not Available levofloxa calvin 500 mg tablet 1 PO QD 05/29 completed Not Available Not Available Not Available oxycodone -acetamin ophen 7.5 mg-325 mg tablet 06/01 completed Not Available Not Available Not Available levofloxa calvin 750 mg tablet 01/18 completed Not Available Not Available Not Available zolpidem 10 mg tablet take 1 tablet by oral route once a day (at bedtime) 06/17 completed Not Available Not Available Not Available methylpre dnisolone 4 mg tablets in a dose pack TAKE DIRECTED PER PACKAGE INSTRUCT IONS active Not Available Not Available No t Available hydrocodo ne 10 mg-chlorp heniramin e 8 mg/5 mL oral susp extend.re l 12hr 05/29 completed Not Available Not Available Not Available ondansetr on 4 mg disintegr ating tablet 08/28 completed Not Available Not Available Not Available fluoxetin e 20 mg capsule TAKE 1 CAPSULE BY MOUTH DAILY active Not Available Not Available No t Available fluticaso ne propionat e 50 mcg/actua tion nasal spray,campos pension inhale 2 sprays (100 mcg) in each nostril by intranas al route once daily 04/14 completed Not Available Not Available Not Available sertralin e 50 mg tablet TAKE 1 TABLET ONCE A DAY 11/12 completed Not Available Not Available Not Available doxycycli ne hyclate 100 mg tablet TAKE 1 TABLET BY MOUTH TWICE DAILY active Not Available Not Available No t Available diazepam 5 mg tablet 06/02 completed uses prn- last use psept 2019 Not Available Not Available Not Available amoxicill in 875 mg-potass ium clavulana te 125 mg tablet TAKE ONE (1) TABLET (ORAL) TWO (2) TIMES PER DAY FOR 10 DAYS active Not Available Not Available No t Available Vitamin B-12 1,000 mcg tablet Take 1 tablet every day by oral route for 30 days. 03/19 completed Not Available Not Available Not Available hydroxyzi ne pamoate 25 mg capsule Take 1 capsule 4 times a day by oral route as needed. 04/14 completed Not Available Not Available Not Available escitalop prateek 10 mg tablet Take 1 tablet every day by oral route for 30 days. 10/24 completed Not Available Not Available Not Available escitalop prateek 20 mg tablet TAKE ONE TABLET BY MOUTH DAILY 01/18 completed Not Available Not Available Not Available cyclobenz aprine 5 mg tablet 2 tablets three times daily as needed 12/25 completed Not Available Not Available Not Available Ciprodex 0.3 %-0.1 % ear drops,campos pension 03/03 completed Not Available Not Available Not Available escitalop prateek 5 mg tablet Take 1 tablet every day by oral route. 03/15 completed Not Available Not Available Not Available nitrofura ntoin monohydra te/macroc rystals 100 mg capsule take 1 capsule (100 mg) by oral route every 12 hours with food for 5 days 05/19 completed Not Available Not Available Not Available pregabali n 100 mg capsule 06/02 completed Not Available Not Available Not Available Percocet Take one tablet every 4 hours as needed 05/04 completed Percocet Oral;Rec orded Status: Recorded on: 09/01/19 12 10:57AM; Disconti nued Status: Disconti nued on: 05/04/20 12 9:52AM;U ser: [email or web address] ;Indicat ion: Pain - (16.7809 00) Not Available Not Available Not Available Chantix Starting Month Nasir 0.5 mg (11)-1 mg (42) tablets in dose pack take as directed 04/19 completed Chantix Starting Month Nasir 0.5 mg (11)- 1 mg (42) oral tablets, dose pack;Rec orded Status: Recorded on: 09/01/19 12 11:12AM; Disconti nued Status: Disconti nued on: 04/19/20 14 9:17AM;U ser: [email or web address] b;Printe d: 09/01/19 12 Not Available Not Available Not Available ProAir HFA 90 mcg/actua tion aerosol inhaler Inhale 2 puffs every 4 hours by inhalati on route as needed. 01/18 completed Not Available Not Available Not Available quetiapin e 50 mg tablet Take 1 tablet every day by oral route at bedtime. 03/05 completed Not Available Not Available Not Available hydrochlo rothiazid e 12.5 mg tablet TAKE 1 TABLET BY MOUTH EVERY DAY active Not Available Not Available No t Available Chantix Continuin g Month Nasir 1 mg tablet take 1 tablet (1 mg) with a glass of water by oral route 2 times per day after meals for 30 days 04/19 completed Chantix Continui ng Month Nasir 1 mg oral tablet;R ecorded Status: Recorded on: 09/01/19 12 11:12AM; Disconti nued Status: Disconti nued on: 04/19/20 14 9:17AM;U ser: [email or web address];Est. Completi on: 02/28/20 12;Print ed: 09/01/19 12 Not Available Not Available Not Available Bystolic 5 mg tablet 01/15 completed Not Available Not Available Not Available Suprep Bowel Prep Kit 17.5 gram-3.13 gram-1.6 gram oral solution 11/12 completed Not Available Not Available Not Available Osteo Bi-Flex 250 mg-200 mg tablet take 1 tablet by oral route 2 times a day 12/18 completed Osteo Bi-Flex 250-200 mg oral tablet;R ecorded Status: Recorded on: 06/26/19 16 5:28PM;D iscontin ued Status: Disconti nued on: 12/19/19 16 10:01AM; User: [email or web address] Not Available Not Available Not Available Vascepa 1 gram capsule 01/15 completed Not Available Not Available Not Available Zorvolex 35 mg capsule Take 1 capsule 3 times a day by oral route as needed for 30 days. 09/28 completed Not Available Not Available Not Available Jublia 10 % topical solution with applicato r apply to affected toenail( s) by topical route once daily for 48 weeks 12/18 completed Jublia 10 % topical solution with applicat or;Recor ded Status: Recorded on: 04/19/20 14 10:29AM; Disconti nued Status: Disconti nued on: 12/19/19 16 10:01AM; User: [email or web address] ;Est. Completi on: 10/26/19 20;Indic ation: Toenail Onychomy cosis - ();Prin taisha: 04/19/20 14 Not Available Not Available Not Available Belsomra 20 mg tablet 01/18 completed Not Available Not Available Not Available Vraylar 1.5 mg capsule Take 1 capsule every day by oral route. 2021 active Not Available Not Available Not Avai lable Vitals Date Recorded Body height Body mass index (BMI) Body weight Systolic And Diastolic Provider Name and Address Organization Details Last Updated DateTime 06/07/2022 162.56 cm 28.5 kg/m2 06401.33 g 120/84 mm[Hg] Apurva Wendi [place] - [facility] 06/07/2022 11:59:34 Date Recorded Body height Body mass index (BMI) Body weight Provider Name and Address Organization Details Last Updated DateTime 12/24/2021 162.56 cm 26.8 kg/m2 94718.41 g Kavya James [place] - [facility] 12/24/2021 14:17:39 Date Recorded Body height Body mass index (BMI) Body weight Provider Name and Address Organization Details Last Updated DateTime 01/21/2023 162.56 cm 28.7 kg/m2 58440.93 g Apurva Cunningham [facility] 01/21/2023 11:40:08 Date Recorded Body height Body mass index (BMI) Body weight Systolic And Diastolic Provider Name and Address Organization Details Last Updated DateTime 03/17/2022 162.56 cm 27.9 kg/m2 18316.4 g 118/86 mm[Hg] Apurva Cunningham [facility] 03/17/2022 08:57:50 Social History Question Answer Notes LastModified by Organizat ion Details LastModified Time Tobacco Smoking Status Current Every Day Smoker [place] Issa [facility] 06/17/2016 16:26:24 Able To Swim? Yes [email or web address] Information not available 01/21/2023 Do You Have An Advance Directive? No Information not available 06/17/2016 Do You Wear A Helmet When Biking? No [email or web address] Information not available 01/21/2023 Are You Blind Or Do You Have Difficulty Seeing? No [email or web address] Information not available 01/21/2023 Is Blood Transfusion Acceptable In An Emergency? Yes [email or web address] Information not available 04/14/2018 What Is Your Level Of Caffeine Consumption? Moderate [email or web address] Information not available 06/17/2016 How Much Tobacco Do You Chew? None [email or web address] Information not available 06/17/2016 Are You Deaf Or Do You Have Serious Difficulty Hearing? No Information not available 04/20/2017 What Type Of Diet Are You Following? REGULAR [email or web address] Information not available 06/17/2016 Which Illicit Or Recreational Drugs Have You Used? Denies [email or web address] Information not available 06/17/2016 What Is The Highest Grade Or Level Of School You Have Completed Or The Highest Degree You Have Received? [id number] Information not available 09/26/2017 How Many Days Of Moderate To Strenuous Exercise, Like A Brisk Walk, Did You Do In The Last 7 Days? 0 [email or web address] Information not available 01/21/2023 On Those Days That You Engage In Moderate To Strenuous Exercise, How Many Minutes, On Average, Do You Exercise? 0 [email or web address] Information not available 01/21/2023 Swimming/diving Yes [email or web address] Informati on not available 01/21/2023 How Hard Is It For You To Pay For The Very Basics Like Food, Housing, Medical Care, And Heating? [id number] [email or web address] Information not available 01/21/2023 Hard Of Hearing Or Deaf In One Or Both Ears? No [email or web address] Information not available 01/21/2023 Legally Blind In One Or Both Eyes? No [email or web address] Information not available 01/21/2023 Live Alone Or With Others? With Others [email or web address] Information not available 01/21/2023 Do You Have A Medical Power Of Cable Puller? No [email or web address] Information not available 01/21/2023 What Was The Date Of Your Most Recent Tobacco Screening? 01/21/2023 Information not available 01/21/2023 How Many Children Do You Have? 2 Information not available 06/17/2016 Performs Monthly Self-breast Exam? No [email or web address] Information not available 01/21/2023 What Is Your Relationship Status? Single [email or web address] Information not available 06/17/2016 Seat Belts Used Routinely Yes [email or web address] Information not available 01/21/2023 Are You Sexually Active? Yes [email or web address] Information not available 06/17/2016 Smoke Alarm In Home Yes [email or web address] Information not available 01/21/2023 Do You Have Smoke And Carbon Monoxide Detectors In Your Home? Yes Information not available 11/10/2021 At What Age Did You Start Smoking Tobacco? 18 Information not available 06/17/2016 Are You Passively Exposed To Smoke? Yes [email or web address] Information not available 06/17/2016 How Much Tobacco Do You Smoke? 1 PPD Quite ~2002 Briefly With Hypnotism [email or web address] Information not available 08/26/2020 General Stress Level Low [email or web address] Information not available 01/21/2023 Do You Use Sunscreen Routinely? Yes Information not available 06/17/2016 Has Tobacco Cessation Counseling Been Provided? Yes [email or web address] Information not available 01/21/2023 How Many Years Have You Smoked Tobacco? 32 Information not available 08/26/2020 Do You Have Difficulty Walking Or Climbing Stairs? No [email or web address] Information not available 01/21/2023 Sex: Female Functional Status Question Answer Note LastModified by Organizat ion Details LastModified Time Do you or have you ever used smokeless tobacco? Never used smokeless tobacco Information not available 08/26/2020 Are you currently employed? Yes Information not available 06/17/2016 Do you have transportation difficulties? No [email or web address] Information not available 01/21/2023 Urinary incontinence assessment performed? Yes [email or web address] Information not available 01/21/2023 Are you able to care for yourself? Yes [email or web address] Information not available 06/17/2016 Do you have difficulty dressing or bathing? No [email or web address] Information not available 01/21/2023 Do you or have you ever used e-cigarettes or vape? Never used electronic cigarettes Information not available 08/26/2020 What is your exercise level? None [email or web address] Information not available 06/17/2016 Do you use any illicit or recreational drugs? No Information not available 11/10/2021 What is your level of alcohol consumption? Moderate Beer about 6 per night Information not available 08/26/2020 Are you able to walk? YESWOREST [email or web address] Information not available 01/21/2023 Do you have difficulty doing errands alone? 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 [id number] Information not available 09/26/2017 Do you have difficulty concentrating, remembering or making decisions? No [email or web address] Information no t available 01/21/2023 Family History Relationship Description Onset Age of this Age Resolved Age Notes LastModified by Organization Details LastModified Time Father No current problems or disability [email or web address] Not available 06/17 16:37:06 Mother No current problems or disability [email or web address] Not available 06/17 16:37:06 Medical History Condition Response Pancreatitis N Coronary Artery Disease N Other N Gout N Atrial Fibrillation N congenital heart disease N Blood Diseases N Kidney Stones N Hyperthyroidism N Blood Transfusion N Rheumatoid arthritis N Erectile Dysfunction N amputation N Colonoscopy N Skin Lesions N COPD N Depression N Pneumonia N Incontinence N Murmur N Edema N Alzheimer's Disease N Migraine Headaches N Tobacco Abuse N Anxiety Disorder Y Hemorrhoids N Muscle, Joint, or Bone Problems N Obesity N Vision or Eye Problems N Arthritis N Restless Leg Syndrome N Polyps N Infertility N Mental Disorder N Carpal Tunnel N Acid Reflux (GERD) Y Cancer N Varicosities N Stroke N Tendonitis N Crohn's Disease N Hypercholesterolemia N Skin Cancer N Headaches N Fibromyalgia N Anal Fissure N Irritable Bowel Syndrome N Kidney Disease N Heart Problems N Ear or Hearing Problems N Hospitalizations Y Gallstones N Kidney or Bladder Problems N Goiter N Acne N Skin Problems N Eating Disorder N Eldridge's Esophagus N Hypertriglyceridemia N MRSA exposure N Constipation N Embolism N Vitamin B12 Deficiency N Deviated Septum N Tuberculosis N AIDS/HIV N Myocardial Infarction N Asthma N Mitral Valve Disorders N Vertigo N Hepatitis N Thyroid Cancer N Neuropathy N Pulmonary Embolism N History of DVT N Herniated Disc N Chronic Ear Infections N Chicken Pox Y Autism Spectrum Disorder (ASD) N Von Willebrands Disease N Thrombophilias N Breast Cancer N Hernia N Plantar Fasciitis N Hospital Admission Other Than N Lung Disease N Hypothyroidism N Defects or Inherited Disease N Developmental or Behavioral Disorders N Breast Problem N Difficulty Swallowing N Ovarian Cyst N Anesthesia Complications N Testosterone Deficiency N Meniere's disease N Head Injury/Concussion N Interstitial Cystitis N Congenital Anomalies N Hypoglycemia N Blood clot N Vitamin D Deficiency N Cellulitis N Endometriosis N Fracture N Bladder or Kidney Problems N Liver Disease N Panic Disorder N Schizophrenia N Concussion N Spina Bifida N Allergies/Hayfever N Osteoarthritis N Parkinson's Disease N Disc Protrusion N STI N Esophagitis N Angina N Thyroid Problems N GI Problems N ADD/ADHD N Anemia N Multiple Sclerosis N Abnormal PAP Y Lumbago N Mental Illness N Psychiatric Illness N Diabetes N Ovarian Cancer N Bedwetting N Degenerative Disc Disease N Seizures/Epilepsy N Congestive Heart Failure (CHF) N Hyperlipidemia N Syncope N Insomnia Y Eczema N Abuse/Domestic Violence N Attention Deficient Disorder N Diverticulitis N Dementia N Ulcerative colitis N Cerebrovascular Disease N Depression N Guillain-[place] N Sleep Apnea N Aneurysm N Bronchitis N Heart Disease N Suicidal Ideation N Pre-Eclampsia N Hypertension Y Osteoporosis N Gynecological History Statement/Question Response Abnormal Pap Y Flow Light Date of Last Mammogram 07/01/2021 STIs/STDs N Colposcopy HPV Vaccine N Current Control Method Tubal Ligat ion Age at Menarche 12 Age at First Child 25 Date of Last Colonoscopy 10/11/2016 Most Recent Bone Density Sexually Active? Y Date of Last Cervical Culture 04/14/2018 Menses Monthly N Date of Last Pap Smear 06/30/2020 Sexual Problems? N LMP Approximate Obstetrics History GPAL:G 2 P 2 0 0 2 Type Value Full Term 2 Living 2 Total 2 Immunizations Vaccine Type Date Status Note Provider Nam e and Address Organization Details Recorded Time Tdap 06/01/19 18 cancelled patient objection Not Available [facility] 05/26/2019 03:54:55 Influenza, split virus, quadrivalent, preservative 02/22/20 17 completed Ana Tiffanie null, [place] - [facility] 02/02/2019 11:40:52 Influenza, split virus, quadrivalent, preservative 02/28/20 18 completed Ana Tiffanie null, [place] - [facility] 02/02/2019 11:40:52 Tdap 01/26/20 08 completed Lorna Sanz null, [place] - [facility] 08/25/2020 10:26:47 Influenza, split virus, quadrivalent, PF 02/03/20 19 completed Not Available [facility] 05/26/2019 03:56:04 Past Encounters Encounter ID Performer Location Encounter Start Date Encounter Closed Date Diagnosis/Indication Diagnosis SNOMED-CT Code Diagnosis ICD10 Code Diagnosis Note [id number] Luis Fernando Reyezjudit [facility] [address] [employer] [place], [employer] [address] 06/17/2016 16:07:28 06/17/2016 17:30:43 Essential hypertension 30851671 I10 Spasm 82788491 R25.2 Cervical Renewal of prescription 022487782 Z76.0 Fatigue 94807024 R53.83 Anxiety 92807782 F41.9 [id number] Luis Fernando Bean [facility] [address] [employer] [facility], [employer] [address] 07/15/2016 16:01:19 07/16/2016 13:15:40 Anxiety 74318190 F41.9 Anal fissure 34106209 K6 0.2 [id number] Luis Fernando Reyezjudit [facility] [address] [facility] [place] [address] 11/12/2016 14:17:27 11/12/2016 17:26:25 Essential hypertension 74620482 I10 Renewal of prescription 773415459 Z76.0 Spasm 36666204 R25.2 Cervical Anxiety 28279498 F41.9 Hand pain 11504845 M79.6 41 Likely CTS [id number] Luis [facility] [address] [place], [place] [address] 03/03/2017 16:05:56 03/03/2017 17:27:00 Anxiety 94698454 F41.9 Essential hypertension 96541159 I10 Spasm 25132544 R25.2 Cervical Anal fissure 01864884 K6 0.2 Renewal of prescription 252664603 Z76.0 [id number] Luis Fernando Webb MD [facility] [address] [place], [place] [address] 04/20/2017 13:05:39 04/20/2017 15:35:14 Anxiety 17811162 F41.9 Body mass index 25-29 - overweight 773320315 Z68.25 [id number] Luis Fernando Webb MD [place] [address] [place], [place] [address] 06/01/2017 09:46:57 06/01/2017 10:45:32 Anxiety 59663804 F41.9 Immunization refused 275 318971 Z28.20 Body mass index 25-29 - overweight 061143518 Z68.25 [id number] Luis Fernando [facility] [address] [place], [place] [address] 07/04/2017 13:17:38 07/04/2017 15:52:02 Spasm 49835290 R25.2 Cervical Cough 19048639 R05 Acute bronchitis 1051332 2 J20.9 [id number] Luis Fernando Webb MD [facility] [address] [place], [place] [address] 09/26/2017 16:19:42 09/26/2017 17:16:22 Anxiety 36577129 F41.9 [id number] [facility] [place] [address] [address] 10/24/2017 16:00:25 10/24/2017 16:59:17 Body mass index 20-24 - normal 467193218 Z68.24 Anxiety 66249163 F41.9 Pruritic disorder 567442 002 L29.9 Tobacco de pendence syndrome 99777641 F17.200 Essential hypertension 52208620 I10 Long-term drug therapy 549605920 Z79.734 [id number] Luis Fernando Webb MD [place] [address] [place] [address] 11/02/2017 15:56:41 11/02/2017 16:55:09 Allergic rhinitis 48101352 J30.9 Cough 39050584 R05 Tobacco de pendence syndrome 42393535 F17.050 [id number] Luis Fernando Webb MD [place] [address] [place] [address] 11/16/2017 15:56:36 11/16/2017 16:54:34 Acute bronchitis 90135933 J20.9 Renewal of prescription 573651706 Z76.0 [id number] Luis Fernando Webb MD [place] [address] [place] [address] 12/02/2017 08:57:58 12/02/2017 09:54:00 Fracture of phalanx of foot 32111965 S92.912A [id number] Luis Fernando Webb MD [place] [address] [address] 02/24/2018 15:57:54 02/24/2018 17:11:49 Renewal of prescription 338671325 Z76.0 Cough 42475311 R05 Skin lesion 93130699 L98 .9 L thumb Allergic rhinitis 359253 04 J30.9 Onychomyco sis of toenails 232214625 B35.1 [id number] ISSA Sanchez [employer] [address] [facility] [place] [address] 04/14/2018 15:38:22 04/14/2018 16:31:57 Routine gynecologic examination done 6307529769 9101 Z01.419 Depression screening 171 700369 Z13.89 PHQ-9 completed today. Diet education 93977541 Z71.3 Counseling 763423070 Z71 .82 Exercise counselmallory hylton Patient encouraged to exercise 30 minutes 5 days a week. Examinatio n of blood pressure 732991757 Z01.30 Screening for malignant neoplasm of cervix 680625765 Z12.4 Patient advised that I will follow up with results. Venereal d isease screening 155227533 Z11.3 Discussed the various types of STDs, related symptoms and the potential consequenc es (including effects on fertility) of STD infections . Reviewed ways to limit exposure and prevention techniques . Screening mammography 24 945341 Z12.31 Pt is scheduled 04/20/18 History of tubal ligation 833287813 Z98.51 Pt had tubal [place] [address] [place]. Body mass index 20-24 - normal 419824088 Z68.24 Dysmenorrhea 723513367 N 94.6 Patient instructed to take NSAIDs 1 days prior to her cycle and PRN.Mirena pamphlet given. Tobacco user 276542246 Z 72.0 [id number] Luis Fernando Webb MD [facility] [address] [facility] [address] 05/19/2018 15:55:21 05/19/2018 17:05:19 Onychomycosis of toenails 011573498 B35.1 Essential hypertension 27164957 I10 Renewal of prescription 334364700 Z76.0 Chest wall pain 74319094 6 R07.89 rule out rib fracture or costochond ral strain or separation . [id number] Luis Fernando Webb MD [facility] [address] [facility] [address] 05/29/2018 10:56:35 05/29/2018 12:21:45 Community acquired pneumonia 412937932 J18.9 Subluxatio n of costochondral joint 058679108 S23.29XS Candidiasis of mouth 797 93595 B37.0 [id number] Luis Fernando Webb MD [facility] [address] [place] [address] 06/01/2018 09:50:05 06/01/2018 10:32:11 Community acquired pneumonia 614461282 J18.9 Subluxatio n of costochondral joint 292380347 S23.29XS left Renewal of prescription 828460967 Z76.0 [id number] Luis Fernando [facility] [address] [place] [address] 07/03/2018 13:53:29 07/03/2018 15:28:16 Acute bronchitis 73167886 J20.9 Chest wall pain 58253586 6 R07.89 L upper breast area Tobacco de pendence syndrome 19067245 F17.200 smoking cessation recommende d Renewal of prescription 492076839 Z76.0 [id number] Luis Fernando Webb [facility] [address] [place] [address] 07/10/2018 12:44:21 07/10/2018 13:39:04 Chest wall pain 541081651 R07.89 L upper breast area [id number] Luis Fernando Webb MD [place] [address] [place] [address] 07/17/2018 10:12:12 07/17/2018 11:44:00 Chest wall pain 720205784 R07.89 L upper breast area [id number] Luis Fernando Webb MD [place] [address] [place] [address] 01/18/2019 13:59:59 01/18/2019 15:29:12 Depressive disorder 94665254 F32.9 Essential hypertension 92553486 I10 Gastroesop hageal reflux disease 838649461 K21.9 Severe andrea or depression 481761662 F32.2 Insomnia 426502513 G47.0 0 Renewal of prescription 878202463 Z76.0 [id number] Luis Fernando Reyezjudit [place] [address] [place] [place] [address] 02/02/2019 11:28:16 02/02/2019 12:27:11 Administration of influenza vaccine 74671169 Z23 Depressive disorder 3548 9007 F32.9 Sleep disorder 27745066 G47.9 [place] =16 Essential hypertension 05137220 I10 Gastroesop hageal reflux disease 625109383 K21.9 Neck pain 28329802 M54.2 Renewal of prescription 848270306 Z76.0 [id number] Chavez Perkins LCSW [facility] [address] [place] [address] 03/01/2019 16:55:46 03/02/2019 13:13:19 [id number] Luis Fernando Bean [place] [address] [place] [place] [address] 03/05/2019 15:55:29 03/05/2019 17:22:45 Anxiety 00118978 F41.9 History of menorrhagia 906955951 Z87.42 Leukocytosis 529005815 D 72.829 Liver func tion tests outside reference range 086096095 R94.5 Tobacco de pendence syndrome 00999676 F17.200 smoking cessation recommende d Depressive disorder 3548 9007 F32.9 [id number] Luis Fernando Bean [place] [address] [address] [place] [facility] [place] [address] 04/19/2019 16:09:36 04/19/2019 17:12:29 Acute bronchitis 14549670 J20.9 Obstructiv e sleep apnea syndrome 38809938 G47.33 Dysfunctio n of eustachian tube 73593368 H69.91 [id number] Luis Fernando Bean [place] [address] [address] [address] 08/29/2019 13:02:54 08/29/2019 14:24:17 Anxiety 91823677 F41.9 Gastroesop hageal reflux disease 260311881 K21.9 Essential hypertension 02577234 I10 Depressive disorder 3548 9007 F32.9 [id number] Luis Fernando Bean [place] [address] [address] [place] [address] 11/21/2019 09:43:53 11/21/2019 10:49:28 Body mass index 25-29 - overweight 567921637 Z68.25 Fatigue 29615717 R53.83 Neck pain 37908332 M54.2 Contusion of left upper arm 4109448233 2400236 S40.022A Cervical spondylosis 387 739802 M47.812 Arthropath y of cervical spine facet joint 371686073 M46.92 Paresthesi a of upper limb 72221839 R20.2 bilateral Weakness of left arm 036 6078359 8064082 G83.20 [id number] Luis Fernando Webb MD [facility] [address] [place] [address] 11/26/2019 11:19:21 11/26/2019 13:16:06 Weakness of left arm 6592716454 2126957 G83.20 Cervical d isc disorder 974137844 M50.90 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 Neck pain 43106353 M54.2 Spinal leonie nosis in cervical region 73599475 M48.02 Paresthesi a of upper limb 20881390 R20.2 bilateral Hypothyroidism 67385372 E03.9 Pain in left arm 9792456 00 M79.602 Pain in right arm 681799 004 M79.934 [id number] Luis Fernando Webb MD [place] [address] [place] [address] 12/03/2019 13:40:55 12/03/2019 14:49:37 Cobalamin deficiency 094958848 E53.8 Neck pain 69352165 M54.2 Cervical d isc disorder 266723670 M50.90 Cervical spondylosis 387 188617 M47.812 Congenital fusion of spine 71885616 Q76.49 Pain in left arm 6524746 00 M79.602 Pain in right arm 766305 004 M79.601 Paresthesi a of upper limb 68198645 R20.2 bilateral Spinal leonie nosis in cervical region 33684819 M48.02 Weakness of left arm 045 1229448 5131554 G83.20 Acquired hypothyroidism 615272953 E03.9 [id number] Luis Fernando Webb MD [place] [address] [place] [address] 03/19/2020 15:15:26 03/19/2020 16:23:17 Acquired hypothyroidism 864913187 E03.9 Long-term drug therapy 637806376 Z79.899 Hyperlipidemia 40665766 E78.5 Hypoalbuminemia 74595511 4 E88.09 Tremor 97152695 R25.1 Renewal of prescription 489318304 Z76.0 [id number] MD Hamilton Mayer [employer] [address] [facility] [place] [address] 06/02/2020 15:54:36 06/02/2020 18:05:35 Arthritis 0586203 M19.90 Would like to see if she could get Zorvolex brand refilled, wants this sent to new mail order pharmacy. Renewed this from previous dosing advised per Dr. Webb. Advise further follow-up with him regarding options if not covered Neck pain 35089976 M54.2 Menorrhagia 636065000 N9 2.0 Current protracted menorrhagi a/dysmenor negar on normally time cycle .no hemodynami c changes with vitals or hemoglobin .. May represent perimenopa usal ovulatory changes. Rule out other primary uterine pathology. RTO for SHG/EMB. Treatment options reviewed. Prefers trial of menstrual suppressio n with Depo-Prove ra, prior good luck with this as younger woman. First injection today. Aware of limitation s as far as acute cessation, anticipate light but decreasing intermitte nt bleeding over the next 3 months. Dysmenorrhea 817266461 N 94.6 Moderate baseline symptoms. Worsening symptoms with current cycle, in proportion to increasing flow. Grossly normal size uterus. Cannot exclude myomata, adenomyosi s or endometrio sis. No intermenst rual pain. Treatment and evaluation as above .reviewed use of anti-infla mmatories as well as arthritic pain--woul d try to settle on a single anti-infla mmatory that seems to work best for both. Midol and Tylenol could be used in addition to other standard NSAIDs as well Screening for malignant neoplasm of breast 313734392 Z12.31 Patient aware of due date for next Mammogram as indicated below. Overdue .she will be notified by facility of result after completion . Advise yearly Clinical Breast exam with Annual exam. Initiation of depot contraception done 0211300010 53822 Z30.013 First injection today. Being used for noncontrac eptive benefit, prior tubal ligation. Advise every 12 week dosing, sooner if needed for menstrual suppressio n [id number] MD Hamilton Mayer [employer] [address] [place] [address] [place] [address] 06/30/2020 12:24:36 06/30/2020 13:31:51 Menorrhagia 185184702 N92.0 presentati on 06/02/20 with protracted menorrhagi a/dysmenor negar on normally time cycle .no hemodynami c changes with vitals or hemoglobin 06-02-19 visit. May represent perimenopa usal ovulatory changes.. Ultrasound and sonohyster ogram 06-30-20 show normal myometrium and endometria l cavity, biopsy pending. Currently showing good clinical response to Depo-Prove ra x 4 wk Dysmenorrhea 413793151 N 94.6 Moderate baseline symptoms. Worsening symptoms with May cycle, in proportion to increasing flow. Grossly normal size uterus per today's ultrasound , no gross myometrial changes but cannot exclude adenomyosi s or endometrio sis. Symptoms appropriat dolores improving with menstrual suppressio n Screening for malignant neoplasm of cervix 913348558 Z12.4 2-year interval screening sent today R/T menstrual changes Surveillan ce of depot contraception done 1664536922 9104 Z30.42 Being used for menstrual suppressio n/noncontr aceptive purposes. Good clinical response. First injection 06-02-20, next due on third week of August. No side effects to therapy noted so far. Advise use to age 53/53 response [id number] MD Hamilton Mayer [employer] [address] [place] [address] [place] [address] 08/26/2020 15:53:43 08/26/2020 17:10:02 Gynecologic examination 20347332 Z01.419 Cervical cancer screening not due this year, see HPI Depression screening 171 837089 Z13.89 Hypertensi on screening 831177929 Z13.6 Patient currently is within goal of less than 140/90. We will rescreen at annual visit, sooner if needed Exercises education, guidance, and counseling 090255156 Z71.82 Advise 30 minutes 3 times a week at a minimum of purposeful exercise. Patient is not currently meeting this goal. Menorrhagia [id number] N9 2.0 Bleeding resolved at this point with first round of Depo-Prove ra Vaginal discharge 890783 006 N89.8 Bacterial vaginosis 4197 85527 N76.0 Dysmenorrhea 671723587 N 94.6 Moderate baseline symptoms. Worsening symptoms with May cycle, in proportion to increasing flow. 2 21 sonohyster ogram no gross myometrial changes but cannot exclude adenomyosi s or endometrio sis. Endometrit is confirmed with endometria l biopsy status post minocyclin e treatment . symptoms appropriat dolores improving with menstrual suppressio n, and patient desires ongoing suppressio n Surveillan ce of depot contraception done [id number] 9104 Z30.42 Being used for menstrual suppressio n/noncontr aceptive purposes. Good clinical response. First injection 06-02-20, second shot given today. No obvious side effects from treatment. RTO 12 weeks call sooner if not having ongoing menstrual suppressio n continue till age 53 for suppressio n Cigarette smoker 6328281 7 F17.210 Declines cessation treatment Screening for malignant neoplasm of breast 145096815 Z12.31 Patient aware of due date for next Mammogram as indicated below. She will be notified by facility of result after completion . Advise yearly Clinical Breast exam with Annual exam. [id number] Luis Fernando Webb MD [facility] [address] [place] [address] 12/25/2020 16:15:02 12/25/2020 17:09:01 Hypothyroidism 08014777 E03.9 Depressive disorder 3548 9007 F32.9 Gastroesop hageal reflux disease 034714970 K21.9 Anxiety 54770964 F41.9 Essential hypertension 73030874 I10 Neck pain 89485905 M54.2 [id number] Luis [facility] [address] [facility] [place] [facility] [place] [address] 02/12/2021 11:34:50 02/12/2021 13:01:57 Fall on same level from slipping, tripping or stumbling 949028218 W01.0XXA Abrasion of head 7616861 05 S00.91XA 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 Ultrasound and sonohyster ogram 06-30-20 show normal myometrium and endometria l cavity, endometria l biopsy negative. Good initial response to May 29 and August 27 Depo-Prove ra until lost to follow-up. Has had return of light flow in the interim and desires restart suppressio n Screening for malignant neoplasm of breast 695683340 Z12.31 Patient aware of due date for next Mammogram as indicated below OVERDUE . She will be notified by facility of result after completion . Advise yearly Clinical Breast exam with Annual exam. Surveillan ce of depot contraception done 1389262086 9104 Z30.42 Being used for menstrual suppressio n/noncontr aceptive purposes. Good clinical response. First injection 06-02-20, second shot given08/27 No obvious side effects from treatment. lost to fu r/t work changes, , desires to restart therapy. [id number] MD Hamilton Mayer [employer] [address] [place] [address] JHONNY Moss [address] 08/03/2021 11:29:40 08/03/2021 12:41:35 Menorrhagia 905728067 N92.0 [id number] [facility] [address] [facility] [place] [place] [address] 08/27/2021 13:12:51 08/27/2021 14:19:02 Hypothyroidism 84146857 E03.9 Depressive disorder 3548 9007 F32.9 Anxiety 17089566 F41.9 Renewal of prescription 923032898 Z76.0 Chronic neck pain 716941 9531 107 M54.2 Long-term drug therapy 070552656 Z79.094 [id number] Carrol Webb APRN [facility] [address] [place] [address] 09/28/2021 13:14:10 09/28/2021 13:52:33 Injury of foot 293389855 S99.921A X-ray shows evidence of a possible evulsion fracture and recommends CT.Spoke with patient who refused CT, discussed referral to orthopedic s with patient. Patient initially refused referral. Explained risks of non-treatm ent with patient and she agreed to referral to Dr. Macias but continues to refuse CT.Follow up in 4-6 weeks. Cervical spondylosis 387 895404 M47.812 ChronicPat ient previously started on diclofenac , patient report sun sensitivit y. Discussed the potential for this reaction from all NSAIDs. Patient reports that she has tried other NSAIDs in the past without this reaction. Discussed Meloxicam, patient would like to try this medication . Patient advised to utilize sunscreen. [id number] MD Antonia Mayerville [employer] [address] [place] [address] JHONNY Moss [address] 10/22/2021 13:43:26 10/22/2021 14:14:51 Menorrhagia 068768342 N92.0 [id number] Chante Marin MD [address] JH[place] Moss [address] 11/10/2021 14:30:28 11/10/2021 16:50:38 Alcoholism 4728489 F10.20 states she drinks 4-5 beers socially Mixed anxi ety and depressive disorder 244559104 F41.8 she will cut mirtazapin e in half, cont fluoxetine and I am adding vraylar 1.5 mg qd today Tobacco de pendence syndrome 33159591 F17.200 Cervical spondylosis 387 514204 M47.812 Degenerati on of cervical intervertebral disc 20018188 M50.30 trying increased dose of meloxicam to 15 mg today. advised that it would be better for her to stop tanning and take the diclofenac , since it helps Pure hypercholesterolemia 505527606 E78.00 last lipid 03/20/20 [id number] ISSA Akers [employer] [address] [place] [address] JHONNY Moss [address] 12/24/2021 13:56:36 12/24/2021 14:07:45 Uses depot contraception 921878652 Z30.42 Body mass index 25-29 - overweight 088618763 Z68.26 Overweight 353053391 E66 .3 [id number] Luna Souza APRN [place] [employer] [address] [place] [address] [place] [address] 03/17/2022 08:23:52 03/17/2022 09:14:39 Dysmenorrhea 209881835 N94.6 Uses depot contraception 072225345 Z30.42 [id number] Luna Souza APRN [place] [employer] [address] [place] [address] Dr. [place] [address] 7 06/07/2022 11:31:43 06/07/2022 12:19:08 Uses depot contraception 725361038 Z30.42 [id number] Luna Souza APRN [place] [employer] [address] [place] [address] [place] [address] 09/07/2022 11:26:23 09/07/2022 11:44:19 Uses depot contraception 432905919 Z30.42 [id number] Luna Souza APRN [place] [employer] [address] [place] [address] [place] [address] 01/21/2023 11:21:06 01/21/2023 12:20:38 Uses depot contraception 822308416 Z30.42 Health Concerns Section Related Observation LastModified by Organization Detai ls LastModified Time None Recorded Concern Status LastModified by Organization Details LastModified Time None Recorded Advance Directives Directive N: Payers Insurance Date Sequence Insurance Name Policy Number Policy Rodriguez Covered Member ID Rodriguez Member ID Guarantor Name 01/26/2023 1 [place] [id number] Nasrin May [id number] Nasrin May 12/22/2020 1 [facility] [id number] Nasrin May [id number] Nasrin May 02/12/2021 1 *SELF PAY* To radha May 03/31/2021 1 *SELF PAY* To radha May 02/12/2021 1 [facility] (MEDICAID REPLACEMENT - O) Nasrin May [id number] Nasrin May Notes Date Note Type Note Provider Name and Address Organization Details Recorded Time 12/24/2021 text/html Doing well with depo and desires to continueRto 12 wks for next injectionEncourage Ca/Vit D supplement Luna Souza, ISSA [address], [place], [address], [place] [facility] 12/24/2021 14:50:23 03/17/2022 text/html Doing well with depo and desires to continueRto 12 wks for next injectionEncourage Ca/Vit D supplement Apurva Adame [facility], [place] - [facility] 03/17/2022 09:24:41 06/07/2022 text/html Doing well with depo and desires to continueRto 12 wks for next injectionEncourage Ca/Vit D supplement Lunapretty Souza APRN [address], [place], [address], [place] - [facility] 06/07/2022 12:12:51 09/07/2022 text/html Doing well with depo and desires to continueRto 12 wks for next injectionEncourage Ca/Vit D supplement Luna Souza APRN [address], [place], [address], [place] [facility] 09/07/2022 11:39:45 01/21/2023 text/html Doing well with depo and desires to continueRto 12 wks for next injectionEncourage Ca/Vit D supplement Luanpretty Souza APRN [address], [place], [address], [place] [facility] 01/21/2023 11:55:37 OBGyn Episode No OBEpisode recorded.
--- OUTSIDE RECORDS SUMMARY | 2024-11-21 15:13 | XMS_ITS | Encounter Summary ---
Author Organization [employer] ([place], [place], [place], [place]) Address [address] [place] [address] Care Team Providers Care District Administrative Assistant Name Role Phone [facility], Provider Not In The System Primary Care Provider Unavailable Encounter Details Date Type Department Care Team (Late st Contact Info) Description 12/15/2019 Transcribed Document [facility] [address] [place] [address] ProviderFer MD [address] [place] [address] Social History Tobacco Use Types Packs/Day Years Used Date Smoking Tobacco: Never Assessed Comments Unknown Sex and Gender Information Value Date Recorded Sex Assigned at Female 11/03/2021 8:12 PM CDT Legal Sex Female 8:12 PM CDT Gender Identity Female 11/03/2021 8:12 PM CDT Sexual Orientation Not on file documented as of this encounter Miscellaneous Notes * Cerner Conversion Note - Fer ProviderMD - 12/15/2019 8:49 AM CDT UM Authorization Entered On: 12/15/2019 8:52 EDT Performed On: 12/15/2019 8:49 EDT by WILLIE MITCHELL RN Primary Insurance Authorization Authorization and Policy Numbers : Insurance 1 Health Plan: [employer] Policy Number: [id number] Authorization Number: Insurance Primary Name : [facility] [id number] Authorization Status-Primary : Awaiting callback Authorization Number-Primary : [id number] Authorized Service Begin Date-Primary : 12/14/2019 EDT Authorization Comments-Primary : Per [facility] portal pending auth for IP, CPT codes are 35290, 89327, 20877, 62352, 46612, 39238, 87722 Historical Authorization Comments-Primary : Comment 1: pt is scheduled for INPT Lumbar Fusion Posterior 3 Level Cervical Discectomy Fusion Posterior and Cervical Laminectomy Posterior on Tuesday12/14/2019 PA will call and obtain auth on date of serv. (MELISSA LIU, Rocket Motor Mechanic 12/13/2019 13:30) WILLIE MITCHELL RN - 12/15/2019 8:49 EDT Electronically signed by Olegario Livingston Conversion Interactive Digital Media Specialist Cerner at 08/23/2022 5:27 PM CDT documented in this encounter Plan of Treatment Not on file documented as of this encounter Visit Diagnoses Not on filedocumented in this encounter Care Teams District Administrative Assistant Relationship Specialty Start Date End Date [facility], Provider Not In The System, [place] [address] PCP - General 09/23/22 documented as of this encounter
--- OUTSIDE RECORDS SUMMARY | 2024-11-21 15:13 | XMS_ITS | Encounter Summary ---
Author Organization [employer] ([place], [place], [place], [place]) Address [address] [place] [address] Care Team Providers Care Eeo Officer Name Role Phone [facility], Provider Not In The System Primary Care Provider Unavailable Encounter Details Date Type Department Care Team (Late st Contact Info) Description 12/17/2019 Transcribed Document [facility] Neurology - [facility] [address] [id number] Alex Thakur Jr., MD [facility] [place] [address] Social History Tobacco Use Types Packs/Day Years [...] - Alex Thakur Jr., MD - 12/17/2019 1:15 PM EDT Patient: NASRIN MAY Age: 49 Years Sex: Female : 1970 Admit Date 12/14/2019 05:54 Discharge Date 12/17/2019 Primary Care Provider DEBORAH GUARDADO (REF)[facility] Discharge Diagnosis Cervical disc disorder with radiculopathy 12/17/2019 M50.10 ICD-10-CM Procedures SN - Proc - Procedure:1. Placement of C3 and C5 lateral mass screws with posterolateral lateral mass arthrodesis from C3-C5. 2. C3 through L5 laminectomy. 3. All of the above performed with [employer] neuronavigation and Airo intraoperative CT scan. (12/14/19 16:10:57) Reason for Hospitalization Posterior cervical decompression and fusion For progressive cervical myelopathy Hospital Course 49-year-old female with history of C3-C5 ACDF For myelopathy in the past by Dr. Thakur who was initially evaluated in the office and was found to have progressive cervical myelopathy. Dr. Thakur had recommended for posterior decompression and fusion. After consent was obtained the patient underwent above said procedure without major complication. She was transferred to the recovery room in stable condition and eventually up to the floor stable condition.Dr Alexandre's team was consulted for medical management. The patient participated in PT OT on postop day 1. ENRIQUE drain was DC'd on postoperative day 2. By postop day 3 her pain was better controlled, she was showing Reasonable functional mobility. The patient's overall strength and numbness was improved after surgery.However, the patient does live alone, Still has some deficits and is amendable to home health services after discharge. Vital Signs T: 36.7 ??C TMIN: 36.7 ??C TMAX: 37.2 ??C HR: 78(Monitored) RR: 17 BP: 109/77 SpO2: 94% Oxygen Settings (Last) Oxygen Therapy Mode: Room air (12/16/19 18:25:00) Oxygen Flow Rate: 2 Liter/Min (12/14/19 17:10:00) Physical Exam nad incision cdi bandage intact and dry 4+/5 bilateral volleyball assistant coach nonlabored breathing appropriate Discharge Disposition Home with Home Care Discharge Follow Up ALEX THAKUR - 11:00 AM ALEX THAKUR - 02:15 AM Discharge Medications (7) Active atenolol 25 mg oral tablet 25 mg = 1 Tab, Oral, Daily cyclobenzaprine 10 mg oral tablet 10 mg = 1 Tab, PRN, Oral, TID FLUoxetine 20 mg, Oral, Daily hydroCHLOROthiazide 12.5 mg oral tablet 12.5 mg = 1 Tab, Oral, Daily mirtazapine 7.5 mg, Oral, At Bedtime omeprazole 20 mg oral delayed release capsule 20 mg = 1 Cap, Oral, Daily Percocet 5/325 oral tablet 1 Tab, PRN, Oral, Q6H Code Status Start: 12/14/19 16:07:00 EDT, Full Code, Continuous Order Condition on Discharge Stable and improved Consulting Physicians YASIR BLANCO MD-ANS CORNEA, MONICA ARMANDO CYNTHIA LEE, MD-ANS STONER, LINDSEY, NA DOODNAUTH, DAVANAND C, MD-INT (medical eval. frequent etoh use.) Current Diet Order Diet, Adult - Ordered -- Start: 12/14/19 17:37:00 EDT, Regular Diet, Isolation: Standard Precautions Patient Discharge Summary Orders Discharge Activity: don collar when up and about, Discharge Activity: No heavy lifting over 10 lbs Diet: Discharge Diet: Resume usual diet as tolerated Follow up 2 weeks for staple removal Follow-up 1 month with AP and lateral cervical x-rays with Dr. So in 1 month Avoid lifting more than 10 or 15 pounds avoid bending lifting twisting Don cervical collar when up and about do not submerge incision, keep incision clean and dry Avoid NSAIDs for 2 months postoperatively Pending Labs In Process SENDOUT REPORT [id number], [id number], RT - Routine, 12/14/19 15:19:00 EDT Pathology Tissue Request [id number], [id number], 12/14/19 15:19:00 EDT, Collected, RT - Routine, 12/17/19 9:15:25 EDT, TEMO BARNES, [employer]otech, Specimen Type: AP Specimen, Specimen Desc: Epidural mass In Transit Path Tissue Request, Sendout Specimen Type: AP Specimen, Routine collect, 12/14/19 15:19:00 EDT, 1-Time, Collected, Stop: 12/14/19 15:19:00 EDT, Nurse Collect, Specimen Desc: a: epidural mass, Print Label By Order Location documented in this encounter Plan of Treatment Not on file documented as of this encounter Visit Diagnoses Not on filedocumented in this encounter Care Teams Eeo Officer Relationship Specialty Start Date End Date Danie, Provider Not In The System, [place] [address] PCP - General 09/23/22 documented as of this encounter
--- OUTSIDE RECORDS SUMMARY | 2024-11-21 15:13 | XMS_ITS | Encounter Summary ---
Author Organization [employer] ([place], [place], [place], [place]) Address [address] [place] [address] Care Team Providers Care Hand Filer Balance Wheel Name Role Phone [facility], Provider Not In The System Primary Care Provider Unavailable Encounter Details Date Type Department Care Team (Late st Contact Info) Description 12/15/2019 Transcribed Document [facility] Neurology - [facility] [address] [address] Alex Thakur Jr., MD [facility] [place][note 2][address] [place] [address] Social History Tobacco Use Types Packs/Day Years [...] Note - Alex Thakur Jr., MD - 12/15/2019 11:25 AM EDT Patient: NASRIN MAY Age: 49 years Sex: Female : 1970 Associated Diagnoses: None Author: ALEX THAKUR MD-SNU af vss maew, 4-4+/5 c/d/i odalys bloody, low output looks well describes severe muscle spasm p.t. pain control doodnuath team eval, h/o frequent etoh use cont odalys schedule valium x 24 hrs for spasm will be here thru weekend for pain and p.t. for severe myelopathy documented in this encounter Plan of Treatment Not on file documented as of this encounter Visit Diagnoses Not on filedocumented in this encounter Care Teams Hand Filer Balance Wheel Relationship Specialty Start Date End Date [facility], Provider Not In The System, [place] [address] PCP - General 09/23/22 documented as of this encounter
[2024-11-21 15:27] VITALS: BP 104/76; PULSE 82; RESP 14; O2SAT 96; BMI 35.4
--- NOTE | 2024-11-21 16:03 | EXP.PAIN.PRO ---
Procedure Date: 11/21/24 Time: 16:03 Anesthesiologist:: Laxmi Hooks APRN Complications:: None Pre-procedure Diagnosis:: Degenerative disc disease of lumbar spine, chronic back pain, bilateral knee pain, leg pain Post-procedure Diagnosis:: Same Indications for Procedure:: Patient is a pleasant 54-year-old female who presents today for intrathecal adjustment and reprogram and worsening back pain. Today she rates it a 7 out of 10. She denies any new falls or injuries. Patient does states she just feels like she is not able to do much or even try and lose the weight she has gained due to the worsening back pain. Patient states that it is just so much worse when she gets up and walks. She states the pain is interfering with her ability perform activities of daily living such as cooking and cleaning. Patient does have numbness primarily down the left leg that is also related to a history of nerve damage. Patient is currently managed with Dilaudid 1 mg/mL with a daily dose of 0.1518 mg/day. She denies any side effects. Her Jr has been reviewed and is appropriate. Physical Exam: General: Alert and oriented x3, no acute distress, pleasant and cooperative Lungs: Respirations even and unlabored, symmetrical chest expansion Eyes: PERRL Musculoskeletal: Flexion and extension of lumbar [spine] somewhat guarded secondary to pain, [antalgic gait noted] positive leg raise Neurological: Speech clear, no gross sensory deficit Procedure Details:: Informed consent was obtained and the risk and benefits of the procedure were explained to the patient. Patient did have noninvasive monitoring was placed including noninvasive blood pressure cuff and pulse oximeter. Patient's pump was interrogated and was reprogrammed to Dilaudid 0.1894 mg/day. The patient tolerated the procedure well with no complications. Plan and Disposition:: Patient tolerated the procedure well with no complications and was discharged neurologically intact. Patient is experiencing worsening pain in her low back with numbness and tingling into her lower extremities. Patient did have limited range of motion of her lumbar spine with a positive leg raise. I did discuss with patient that I do believe they would benefit from a lumbar epidural steroid injection. Risk and benefits were discussed with patient and the patient would like to proceed forward with this plan of care. Patient is not on any blood thinners. Patient has tried and failed conservative therapy including oral medications, heat and ice, topicals and continued at home stretching exercise for longer than 12 weeks between injections. Patient has had chronic back pain for longer than 6 months. Patient has not had any epidurals from our office to compare to. We will schedule the patient for an LESI L4-L5 under fluoroscopy. Patient has been instructed to contact the clinic with any concerns before the next appointment. Dr. Winkler has reviewed this note and agrees with this plan of care. This note was dictated using voice recognition software and make contain errors or omissions. All injections are used with Lidocaine, Bupivacaine and dexamethasone. Occasionally urine drug screen is needed to verify patient's compliance with our office pain contract. This is ordered based off specific treatments related to chronic pain with the potential to abuse certain medications. Patient will return to clinic on or before their next intrathecal refill date. We will see the patient back in the clinic at the next intrathecal refill. Patient has been instructed to contact the clinic with any concerns before the next appointment. Dr. Winkler has reviewed this note and agrees with this plan of care. This note was dictated using voice recognition software and make contain errors or omissions. -- It Is medically necessary for this patient to continue to have their intrathecal pump refilled at regular intervals. This patient had an intrathecal pain pump implanted after meeting criteria of chronic intractable pain for greater than 3 months and failing conservative treatments. Patient has committed and been compliant to the treatment plan and all planned follow up care. Since implantation of the intrathecal pain pump, the patient has had decreased pain and been more functional. Oral medications have been reduced including intake of oral opioids. Patient continues to do well with intrathecal therapy with decrease in pain symptoms and increase in functional status. Stopping intrathecal medications can lead to life threatening withdrawal, seizures, cardiac arrest, severe pain, and possible . Pumps that are not refilled at regular intervals can be damages and cause and need for replacement. We continually titrate dose and concentration to optimize pain relief and function. We are limited in concentration for certain drugs to safely deliver medications through the pump and stay within the recommendations from the Polyanalgesic Consensus Committee Guidelines. Depending on dose and concentration these pumps may need to be refilled sooner than 3 months as we titrate. A UDS is needed to verify patient's compliance with our office pain contract. This is ordered based off specific treatments related to chronic pain with the potential to abuse certain medications.
== END 2024-11-21 23:59 | disposition home or self-care (01) ==
PROVIDERS: PCP Nurse Practitioner Family; Visit Provider Nurse Practitioner Family
DX: M51.360 Other intervertebral disc degeneration, lumbar region with discogenic back pain only (principal); M25.561 Pain in right knee; M25.562 Pain in left knee
CPT/HCPCS: 62368; 99213; G0463

== ENCOUNTER 2024-12-18 13:01 | Day surgery (SDC) | payer MEDICAID, SELFPAY ==
[2024-12-18 13:06] VITALS: BP 112/73; PULSE 82; RESP 18; O2SAT 96; BMI 35.7
--- NOTE | 2024-12-18 13:29 | EXP.PAIN.PRO ---
Procedure Date: 12/18/24 Time: 13:15 Anesthesiologist:: Dmitri Garcia CRNA Complications:: None Pre-procedure Diagnosis:: Degenerative disc lumbar spine multilevels. Lumbar radiculopathy. Post-procedure Diagnosis:: Same. Indications for Procedure:: Patient is a very pleasant 54-year-old female comes our clinic today for lumbar epidural steroid injection. Patient describes low lumbar back pain as constant, dull, aching. Patient also reports bilateral hip and leg radicular symptoms at times. She rates her pain 7/10 Procedure Details:: Procedure: Lumbar epidural steroid injection under fluoroscopy Informed consent was obtained and the risks and benefits of the procedure were explained to the patient. The patient was taken to the procedure room and noninvasive monitors placed, including noninvasive blood pressure cuff and pulse oximeter. The back was viewed using C-arm Fluoroscopy and prepped using Chloraprep as a cleansing solution and the L4-L5 interspace was palpated. Skin and subcutaneous tissues were anesthetized using lidocaine 1.5% and a 25-gauge needle. After this, an 18-gauge Touhy epidural needle was placed into the L4-L5 interspace and advanced using fluoroscopic guidance and loss of resistance to air until the epidural space was encountered. After confirmation of needle placement in the epidural space, with dye, a solution containing normal saline, 3 mL and dexamethasone 10 mg were incrementally injected into the lumbar epidural space. The patient tolerated the procedure well with no complications. The patient was observed in the Pain Clinic and then discharged home neurologically intact. Plan and Disposition:: Patient was discharged without incident.
[2024-12-18 13:36] VITALS: BP 103/72; PULSE 82; RESP 18; O2SAT 96
[2024-12-18 14:48] VITALS: BP 112/73; PULSE 82; RESP 18; O2SAT 96
[2024-12-18] MEDS: DEXAMETHASONE 10MG/ML 1ML VIAL 10 MG (14:48)
[2024-12-18 14:50] VITALS: BP 112/73; PULSE 82; RESP 18; O2SAT 96
== END 2024-12-18 13:36 | disposition home or self-care (01) ==
PROVIDERS: PCP Nurse Practitioner Family; Visit Provider Nurse Anesthetist, Certified Registered
DX: M51.16 Intervertebral disc disorders with radiculopathy, lumbar region (principal); F32.A Depression, unspecified; K21.9 Gastro-esophageal reflux disease without esophagitis; I10 Essential (primary) hypertension; E03.9 Hypothyroidism, unspecified; Z79.890 Hormone replacement therapy; Z79.51 Long term (current) use of inhaled steroids; Z79.899 Other long term (current) drug therapy
CPT/HCPCS: 64483; J1100

== ENCOUNTER 2025-03-05 13:20 | Day surgery (SDC) | payer MEDICARE, MEDICAID, SELFPAY ==
[2025-03-05 13:25] VITALS: BP 106/66; PULSE 75; RESP 16; O2SAT 97; BMI 32.2
--- NOTE | 2025-03-05 13:36 | EXP.PAIN.PRO ---
Procedure Date: 03/05/25 Time: 13:30 Anesthesiologist:: Ozzie Garcia CRNA Complications:: None Pre-procedure Diagnosis:: Degenerative disc lumbar spine multilevels. Lumbar radiculopathy. Lumbar spondylosis. Multilevel lumbar facet arthropathy. Lumbar postlaminectomy syndrome. Post-procedure Diagnosis:: Same Indications for Procedure:: Patient is a pleasant 54-year-old female who comes to clinic today for bilateral L4-5, L5-S1 radiofrequency ablation. Patient describes low lumbar back pain as constant, dull, aching. She rates her pain 8/10. Procedure Details:: Procedure Details: Lumbar RFA Informed consent was obtained and the risk and benefits of the procedure was explained to the patient. Patient was placed prone on the procedure table. The patient was prepped and draped in sterile fashion. C-arm fluoroscopy was used to view the lumbar spine. The skin and subcutaneous tissues were anesthetized using lidocaine. I placed 20-gauge RF needles into the facet joints of L3-L4, L4-L5 and L5-S1 bilaterally. We underwent sensory stimulation. There is good sensory stimulation at 0.8 V. We underwent motor stimulation. There is no motor stimulation at 2 V. We then anesthetized these levels with lidocaine and Depo-Medrol. I used a total of 10 mg of dexamethasone for all 3 levels. I then burned all 3 levels of L3-L4, L4-5 and L5-S1 bilaterally for 4 minutes at 80 ?C. Patient tolerated the procedure well with no complication. Plan and Disposition:: We will follow-up with this patient in 2 weeks. We will reevaluate her symptoms at that time. Plan and Disposition:: Patient was discharged without incident.
[2025-03-05] MEDS: DEXAMETHASONE 10MG/ML 1ML VIAL 10 MG (13:48)
[2025-03-05] MEDS: BUPIVACAINE 0.25% 10ML INJ 25 MG IJ (13:48)
[2025-03-05] MEDS: LIDOCAINE 1% 5ML PF VIAL 5 ML (13:48)
[2025-03-05 13:57] VITALS: BP 136/70; PULSE 78; RESP 16; O2SAT 100
[2025-03-05 15:06] VITALS: BP 106/66; PULSE 75; RESP 18; O2SAT 97
[2025-03-05 15:07] VITALS: BP 106/66; PULSE 75; RESP 18; O2SAT 97
== END 2025-03-05 13:57 | disposition home or self-care (01) ==
PROVIDERS: PCP Nurse Practitioner Family; Visit Provider Nurse Anesthetist, Certified Registered
DX: M47.816 Spondylosis without myelopathy or radiculopathy, lumbar region (principal); M96.1 Postlaminectomy syndrome, not elsewhere classified; F32.A Depression, unspecified; K21.9 Gastro-esophageal reflux disease without esophagitis; E03.9 Hypothyroidism, unspecified; F17.200 Nicotine dependence, unspecified, uncomplicated; Z98.1 Arthrodesis status; Z79.890 Hormone replacement therapy; Z79.899 Other long term (current) drug therapy
CPT/HCPCS: 64635; 64636 ×4; J0665; J1100; J2003